=== PATIENT | male | born 1960 | race Caucasian/White ===

== ENCOUNTER 2016-08-16 07:35 | Inpatient (IN) | payer BC ==
[~2016-08-16] VITALS: Ht 182.9 cm; Wt 97.1 kg
[2016-08-16 09:29] VITALS: BP_SYST 114
[2016-08-16 09:31] VITALS: BP 114/52; RESP 18
[2016-08-16] MEDS ORDERED: HYDROCODONE/APAP (5/325) TAB PO PRN (10:30)
[2016-08-16] MEDS ORDERED: morphine 2 MG INJ IV PRN (10:30)
[2016-08-16] MEDS ORDERED: BISACODYL 10 MG SUPP PR PRN (10:30)
[2016-08-16] MEDS ORDERED: ACETAMINOPHEN 650 MG SUPP PR PRN (10:30)
[2016-08-16] MEDS ORDERED: DOCUSATE SODIUM 100 MG CAP PO PRN (10:30)
[2016-08-16] MEDS ORDERED: NACL 0.9% 3 ML SYG IV SCH (10:30)
[2016-08-16] MEDS ORDERED: ACETAMINOPHEN 325 MG TAB PO PRN (10:30)
[2016-08-16] MEDS ORDERED: MAGNESIUM HYDROXIDE 30ML CUP PO PRN (10:30)
[2016-08-16] MEDS ORDERED: ONDANSETRON 4 MG INJ IV PRN (10:30)
[2016-08-16] MEDS ORDERED: CLON-379 PO (10:40)
[2016-08-16] MEDS ORDERED: SPIR100T31 PO (10:40)
[2016-08-16] MEDS ORDERED: CYCL-319 PO (10:40)
[2016-08-16] MEDS ORDERED: HYDR4TAB PO (10:40)
[2016-08-16] MEDS ORDERED: GABA-528 PO (10:40)
[2016-08-16] MEDS ORDERED: PRA20 PO (10:40)
[2016-08-16] MEDS ORDERED: COU5 PO (10:40)
[2016-08-16] MEDS ORDERED: ULT50 PO (10:40)
[2016-08-16] MEDS ORDERED: FINA5TAB4 PO (10:40)
[2016-08-16] MEDS ORDERED: MAG355OR15 PO (10:40)
[2016-08-16] MEDS ORDERED: ARIP5TAB7 PO (10:40)
[2016-08-16] MEDS ORDERED: CEPH500C PO (10:40)
[2016-08-16] MEDS ORDERED: LISI10TA2 PO (10:40)
[2016-08-16] MEDS ORDERED: TAMS0.4C2 PO (10:40)
--- NOTE | 2016-08-16 11:15 | HP ---
DATE OF ADMISSION: 08/16/2016 CHIEF COMPLAINT: Altered level of consciousness secondary to heroin and [place] abuse as well as pneu monia. HISTORY OF PRESENT ILLNESS: This is a 56-year-old male with reported past medical history of BPH, C HF with systolic dysfunction reported "blood clot in the heart", diabetes, MRSA, hypertension, seizu re, neuropathy, who came to [facility] from outside facility ([facility]) secondary to reports of altered level of consciousness as well as pneumonia. Accord ing to report, the patient had overdosed on heroin as well as [place] 1 day prior to admission. He wa s found to be altered and as such was brought to [facility] for further evaluation. On exa m, he was noted with chest radiograph showing clinical picture of pneumonia. He was noted with no l eukocytosis and no respiratory distress. He was brought to [facility] due to insur ance issue. On further interview with the patient, he did report that he did take heroin as well as [place] in excess and that he was found altered. He did report also of having history of methampheta mine abuse. He denied any suicidal ideation or any kind of suicide attempt and said that he was jus t doing it for recreational purposes. The patient at this time denies any chest pain or shortness o f breath. No nausea, vomiting or any abdominal pain. He does appear more alert, although he is sli ghtly a poor historian. We will evaluate him for the aforementioned issues. MEDICAL AND SURGICAL HISTORY: 1. Hypertension. 2. Congestive heart failure with systolic dysfunction. 3. Diabetes. 4. Methicillin-resistant Staphylococcus aureus. 5. Hypertension. 6. Seizures. 7. Diabetic neuropathy. 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 He denies any a lcohol consumption. He does report daily cigarette smoking. FAMILY HISTORY: Noncontributory. REVIEW OF SYSTEMS: A 12-point review of systems obtained and entirely negative except that mentione d in history of present illness. ALLERGIES: NO KNOWN ALLERGIES. HOME MEDICATIONS: 1. Amitriptyline 100 mg p.o. at bedtime. 2. Abilify 5 mg p.o. every day. 3. Carisoprodol 350 mg p.o. every day. 4. Carvedilol 6.25 mg p.o. b.i.d. 5. Citalopram 20 mg p.o. every day. 6. Finasteride 5 mg p.o. daily. 7. Lasix 20 mg p.o. every day. 8. Neurontin 600 mg p.o. t.i.d. 9. Hydromorphone 4 mg p.o. q.6h. 10. Lidocaine patch 5% topically daily. 11. Lisinopril 10 mg p.o. daily. 12. Metformin 5 mg p.o. b.i.d. 13. Multivitamin p.o. every day. 14. Pravastatin 20 mg p.o. daily. 15. Tamsulosin 0.4 mg p.o. daily. PHYSICAL EXAMINATION: VITAL SIGNS: Temperature is 98.7, pulse 57, respiratory rate is 18, blood pressure is 114/52. Puls e ox is 97% on room air. GENERAL: This is a 56-year-old male, disheveled in appearance with no apparent distress noted at th is time. EYES: Pupils equal, round, reactive to light. Anicteric sclerae. NECK: Supple, nontender, no JVD. CARDIOVASCULAR: S1, S2 auscultated, regular rate. PULMONARY: Clear to auscultation bilaterally. No wheezing or rhonchi. ABDOMEN: Minimally protuberant, soft, nontender. EXTREMITIES: There is noted edema of bilateral lower extremities, +2 as well as minimal upper extre mities +1. SKIN: Warm, dry and intact. NEUROLOGIC: Alert to person, place and time. LABORATORY DATA: (obtained from [facility]) WBC is 5.8, hemoglobin is 9.9, hematocri t is 30.7, platelets are 268. Sodium 136, potassium 4.1. BUN is 28 and creatinine is 1.47. IMAGING: Chest radiograph obtained from [facility]. Per review did show new patchy airspa ce disease in the right mid lung as well as new airspace disease in the left lower lobe, suspect rep resentative of pneumonia. IMPRESSION AND PLAN: 1. Heroin and [place] abuse, resulting in altered level of consciousness. The patient more alert at this time. We will get child welfare social worker to follow. Patient educated about cessation of illicit drugs. We will monitor neuro status. 2. Pneumonia. Patient with chest radiograph with clinical picture of pneumonia. Will start on willie thromycin as well as Rocephin. We will followup on chest radiograph. Afebrile at present. We will provide with O2 as needed. No active bronchospasm noted at this time. 3. Homeless status. Patient was reported to live in a prison home. Will get child welfare social worker to [facility]. 4. History of essential hypertension. Will continue antihypertensives and adjust as needed. 5. History of congestive heart failure with systolic dysfunction. We will follow up on echocardiog francy. Continue to optimize with beta markel and diuretic. 6. History of benign prostatic hypertrophy. We will resume patient's Flomax and finasteride. 7. History of dyslipidemia. We will follow up on fasting lipid panel. Continue on statin medicati on. 8. History of diabetes. We will check A1c. We will resume mild insulin sliding scale of insulin f or now. 9. Deep venous thrombosis prophylaxis: SCDs. 10. Gastroesophageal reflux disease prophylaxis: H2 markel. 11. History of depression. We will continue on his antidepressants. 12. History of chronic pain. We will get pain management physician to follow. ADMISSION PROCESS TIME: 40 minutes. Discussed plan of care with Dr. Amin. Dictated By: JAMES KWON FITNESS AND WELLNESS DIRECTOR for STEVE AMIN MD RR/EBONY Conf#: [id number] DID#: [id number]
[2016-08-16 12:03] LABS: BASOPHILS % 0.4 % (0.0-2.0); EOSINOPHILS # 0.1 10^3/ul (0.0-0.5); EOSINOPHILS % 0.7 % (0.0-7.0); HEMATOCRIT 30.2 % (42.0-52.0); LYMPHOCYTES # 0.8 10^3/ul (0.8-2.9); LYMPHOCYTES % 7.3 % (15.0-51.0); MEAN CORPUSCULAR HEMOGLOBIN 28.5 pg (29.0-33.0); MEAN CORPUSCULAR HGB CONC 33.1 g/dl (32.0-37.0); MEAN CORPUSCULAR VOLUME 86.1 fl (82.0-101.0); MEAN PLATELET VOLUME 7.6 fl (7.4-10.4); MONOCYTE # 0.5 10^3/ul (0.3-0.9); MONOCYTES % 4.1 % (0.0-11.0); NEUTROPHIL # 9.9 10^3/ul (1.6-7.5); NEUTROPHILS % 87.5 % (39.0-77.0); PLATELET COUNT 288 10^3/UL (140-440); RED BLOOD COUNT 3.51 10^6/ul (4.70-6.10); RED CELL DISTRIBUTION WIDTH 17.7 % (11.5-14.5); UNCORRECTED WBC 11.4 10^3/ul (4.8-10.8); WHITE BLOOD COUNT 11.4 10^3/ul (4.8-10.8)
[2016-08-16 12:06] LABS: CONDITION 1; LH ANALYZER COMMENTS 1
[2016-08-16] MEDS: INSULIN ASPART [NOVOLOG] 3 ML PEN SC SCH ×3 (12:15→21:00)
[2016-08-16 12:21] LABS: POTASSIUM 5.1 mmol/L (3.5-5.1)
[2016-08-16 12:23] LABS: CREATININE 1.08 mg/dl (0.61-1.24)
[2016-08-16 12:24] LABS: CALCIUM 9.2 mg/dl (8.4-10.2)
[2016-08-16] MEDS: CEFTRIAXONE 1 GM/50 ML (PMX) 50 ML IVPB SCH (12:52)
[2016-08-16 13:09] LABS: IRON 34 ug/dl (35-150)
[2016-08-16 13:18] LABS: TOTAL IRON BINDING CAPACITY 369 ug/dl (241-421)
[2016-08-16] MEDS: AZITHROMYCIN 500MG/NS (PMX) 250 ML IVPB SCH (13:52)
[2016-08-16] MEDS: HYDROCODONE/APAP (5/325) TAB PO PRN ×2 (16:17→22:12)
--- NOTE | 2016-08-16 16:54 | RADRPT ---
Echocardiogram Report Patient Name: MALKA YATES Gender: Male Date: 1960 Study Date: 16-Aug-2016 Morning Show Host: Murali Kate [facility] Location: [id number] Ref. Physician: JAMES KWON Quality: Good Procedures: Transthoracic echocardiogram with complete 2D, M-Mode, and doppler examination. Indications: Congestive Heart Failure. Dyspnea. 2D/M Mode Doppler Measurement Value Normal Ranges Measurement Value Normal Ranges LVIDd 2D 5.6 3.5 - 5.6 cm AV Peak Alan 2.0 m/sec LVIDs 2D 4.1 2.1 - 4.1 cm AV Peak PG 15.8 mmHg LVPWd 2D 1.1 0.6 - 1.1 cm LVOT Peak Alan 1.0 m/sec IVSd 2D 0.8 0.6 - 1.1 cm LVOT Peak PG 3.8 mmHg AoR Diam 2D 2.4 2.0 - 3.7 cm MV E Peak Alan 0.8 m/sec EDV 2D 152.8 cm3 MV A Peak Alan 0.9 m/sec ESV 2D 66.8 cm3 MV E/A 0.9 LA Dimen 2D 2.9 2.3 - 4.0 cm MV Decel Time 160 msec MV Decel [place] 5 MV E/A 0.9 Findings Left Ventricle: Normal left ventricular systolic function. Normal left ventricular cavity size. Normal left ventricular wall thickness. Ejection fraction is visually estimated at 55 %. Right Ventricle: Normal right ventricular size. Normal right ventricular systolic function. Left Atrium: The left atrium is normal in size. Right Atrium: The right atrium is normal in size. Mitral Valve: Mild mitral annular calcification. Aortic Valve: No significant aortic stenosis or insufficiency. Aortic sclerosis without stenosis. Tricuspid Valve: Unable to obtain RVSP due to minimal presence of tricuspid regurgitation. Pericardium: Normal pericardium with no significant pericardial effusion. Aorta: Normal aortic root. IVC: Normal size and normal respiratory collapse consistent with normal right atrial pressure. Conclusions Normal left ventricular systolic function. Normal left ventricular cavity size. Normal left ventricular wall thickness. Ejection fraction is visually estimated at 55 %. No significant valvular stenosis or regurgitation seen. PAP could not be estimated. RA pressure is 3 mmHg. Electronically Signed By: Piotr Bravo 16-Aug-2016 16:54:01 -0800 Patient Name: MALKA YATES Study Date: 16-Aug-2016 [id number]
[2016-08-16 19:35] VITALS: BP 115/57; RESP 20
[2016-08-16] MEDS ORDERED: AL HYDROX/MG HYDROX/SIMETH 30 ML CUP PO PRN (21:00)
[2016-08-16] MEDS: TAMSULOSIN (SR) 0.4 MG CAP PO SCH (21:57)
[2016-08-16] MEDS: FAMOTIDINE 20 MG TAB PO SCH (21:57)
[2016-08-16] MEDS: GABAPENTIN 400 MG CAP PO SCH (21:57)
[2016-08-16] MEDS: traMADol 50 MG TAB PO SCH (21:58)
[2016-08-16] MEDS: SOD CHLORIDE 0.9% 1,000 ML IV SCH (22:05)
[2016-08-17] MEDS: ACCUCHECK XX SCH (02:00)
[2016-08-17] MEDS: INSULIN ASPART [NOVOLOG] 3 ML PEN SC SCH ×4 (08:10→20:26)
[2016-08-17] MEDS: ARIPIPRAZOLE 5 MG TAB PO SCH (08:20)
[2016-08-17] MEDS: FAMOTIDINE 20 MG TAB PO SCH ×2 (08:20→20:29)
[2016-08-17] MEDS: SPIRONOLACTONE 50 MG TAB PO SCH (08:20)
[2016-08-17] MEDS: LISINOPRIL 10 MG TAB PO SCH (08:20)
[2016-08-17] MEDS: FINASTERIDE 5 MG TAB PO SCH (08:20)
[2016-08-17] MEDS: GABAPENTIN 400 MG CAP PO SCH ×3 (08:21→20:27)
[2016-08-17] MEDS: traMADol 50 MG TAB PO SCH ×3 (08:21→21:31)
[2016-08-17] MEDS: HYDROmorphONE 4 MG TAB PO PRN ×3 (08:27→20:12)
--- NOTE | 2016-08-17 10:14 | RADRPT ---
PROCEDURE: XR Chest. CLINICAL INDICATION: Dyspnea. Rule out pneumonia. TECHNIQUE: Single frontal chest x-ray. COMPARISON: None. FINDINGS: The lungs are clear. No focal opacification is seen. The cardiomediastinal silhouette is unremarka ble. The osseous structures are unremarkable. IMPRESSION: 1. There is no acute cardiopulmonary process. RPTAT: HMJB .Fernando Posada MD, MD Date Time Electronically viewed and signed by .Fernando Posada MD, on 08/17/2016 10:13 .B/
[2016-08-17 10:15] LABS: ALBUMIN 3.2 g/dl (3.3-4.9)
[2016-08-17 10:16] LABS: POTASSIUM 4.4 mmol/L (3.5-5.1)
[2016-08-17 10:17] LABS: INR 1.1; PARTIAL THROMBOPLASTIN TIME 26.1 Sec (25.0-35.0); PROTIME 14.2 Sec (12.2-14.2); PT RATIO 1.1
[2016-08-17 10:18] LABS: BILIRUBIN,INDIRECT 0.2 mg/dl (0-1.1); BILIRUBIN,TOTAL 0.2 mg/dl (0.2-1.3); CALCIUM 8.6 mg/dl (8.4-10.2); CREATININE 0.91 mg/dl (0.61-1.24); PHOSPHORUS 2.8 mg/dl (2.5-4.9); TOTAL PROTEIN 6.4 g/dl (6.1-8.1)
[2016-08-17 10:19] LABS: CHOL/HDL RATIO 2.8 RATIO; MAGNESIUM 1.6 mg/dl (1.7-2.5)
[2016-08-17] MEDS: FERROUS SULFATE (EC) 325 MG TAB PO SCH ×3 (12:22→20:27)
[2016-08-17] MEDS: CEFTRIAXONE 1 GM/50 ML (PMX) 50 ML IVPB SCH (12:22)
[2016-08-17] MEDS: FUROSEMIDE 20 MG INJ IV SCH (12:23)
[2016-08-17] MEDS: SOD CHLORIDE 0.9% 1,000 ML IV SCH (12:23)
[2016-08-17] MEDS: AZITHROMYCIN 500MG/NS (PMX) 250 ML IVPB SCH (13:39)
--- NOTE | 2016-08-17 15:07 | PN ---
Date/Time of Note Date/Time of Note DATE: 08/17/16 TIME: 14:54 Assessment/Plan VTE Prophylaxis VTE Prophylaxis Intervention: other (Coumadin) Lines/Catheters IV Catheter Type (from [facility]): Saline Lock Urinary Cath still in place: No Assessment/Plan Chief Complaint/Hosp Course Assessment and plan 1. Heroin and [place] abuse, resulting in altered level of consciousness. The patient more alert at this time. We will get licensed master social worker to follow. Patient educated about cessation of illicit drugs. We will monitor neuro status. 2. Pneumonia. Patient with chest radiograph with clinical picture of pneumonia. Continue on antibiotic. Of note recent chest x-ray did show no acute cardiopulmonary disease.. We will followup on chest radiograph. Afebrile at present. We will provide with O2 as needed. 3. Homeless status. utility worker production following. Patient does report homelessness now and is not unsure if he still has residence at his long term home.. 4. History of essential hypertension. Will continue antihypertensives and adjust as needed. 5. History of congestive heart failure with systolic dysfunction. Echocardiogram did show ejection fraction of 55%. Continue to optimize with beta markel and diuretic. 6. History of benign prostatic hypertrophy. Continue patient's Flomax and finasteride. 7. History of dyslipidemia. Continue on statin medication. 8. History of diabetes. Continue on insulin regimen. 9. Reported "clot in heart". Patient did report that he had some type of clot in his heart and has been placed on Coumadin. We'll obtain full medical records from [facility]. We'll continue patient's Coumadin . Deep venous thrombosis prophylaxis: SCDs. . Gastroesophageal reflux disease prophylaxis: H2 markel. 11. History of depression. We will continue on his antidepressants. 12. History of chronic pain. Continue with analgesics Disposition and plan: Patient clinically improving. Patient reported to be homeless. We'll follow-up with licensed master social worker concerning disposition upon discharge. Discharge planning Discussed plan of care with Dr. Amin Problems: Subjective 24 Hr Interval Summary Free Text/Dictation No apparent distress noted at this time. Appears comfortable Exam/Review of Systems Vital Signs Vitals Vital Signs Date Time Temp Pulse Resp B/P Pulse Ox O2 Delivery O2 Flow Rate FiO2 08/16/16 19:35 98.9 70 20 115/57 97 Intake and Output 08/16/16 08/16/16 08/17/16 14:59 22:59 06:59 Intake Total 1840 ml 730 ml Output Total 200 ml 300 ml Balance 1640 ml 430 ml Exam General: No acute signs or symptoms of distress Eyes: pupils equal round, Anicteric sclera Neck: Supple nontender, no JVD Cardiac: S1, S2 auscultated, regular rhythm and rate Pulmonary: No coarse rhonchi or breathing auscultated GI: Abdomen soft nontender nondistended, bowel sounds active Extremities: Edema bilateral upper and lower extremity is +1 Skin: Clean dry and intact Neurologic: Alert to person place and time and situation Results Result Diagram: 08/16/16 1128 08/17/16 0905 Results 24 hrs Laboratory Tests Test 08/16/16 17:13 08/16/16 21:56 08/17/16 08:09 08/17/16 09:05 Bedside Glucose 114 142 98 Activated Partial Thromboplast Time 26.1 Alanine Aminotransferase (ALT/SGPT) 31 Albumin 3.2 L Albumin/Globulin Ratio 1.00 Alkaline Phosphatase 58 Anion Gap 11 Aspartate Amino Transf (AST/SGOT) 37 Blood Urea Nitrogen 17 # Calcium Level 8.6 Carbon Dioxide Level 24 Chloride Level 107 Cholesterol Level 125 Cholesterol/HDL Ratio 2.8 Creatinine 0.91 Direct Bilirubin 0.00 Free Thyroxine Index Pending Globulin 3.20 Glucose Level 147 # HDL Cholesterol 44 INR International Normalized Ratio 1.10 Indirect Bilirubin 0.2 LDL Cholesterol, Calculated 69 Magnesium Level 1.6 L Phosphorus Level 2.8 Potassium Level 4.4 Prothrombin Time 14.2 Prothrombin Time Ratio 1.1 Sodium Level 138 Thyroid Stimulating Hormone (TSH) Pending Thyroxine (T4) Pending Total Bilirubin 0.2 Total Protein 6.4 Triglycerides Level 62 Triiodothyronine (T3) Uptake Pending Test 08/17/16 11:57 Bedside Glucose 120 Medications Medications Current Medications Ondansetron HCl (Zofran Inj) 4 mg Q6H PRN IV NAUSEA AND/OR VOMITING; Start 08/16 at 10:30 Acetaminophen (Tylenol Tab) 650 mg Q6H PRN PO PAIN LEVEL 1-3 OR FEVER; Start at 10:30 Acetaminophen (Tylenol Supp) 650 mg Q6H PRN CA PAIN LEVEL 1-3 OR FEVER; Start 08/16/16 at 10:30 Acetaminophen/ Hydrocodone Bitart ([place] (5/325)) 1 tab Q6H PRN PO MODERATE PAIN LEVEL 4-6; Start 08/16/16 at 10:30 Acetaminophen/ Hydrocodone Bitart ([place] (5/325)) 2 tab Q6H PRN PO SEVERE PAIN LEVEL 7-10 Last administered on 08/16/16 22:12; Admin Dose 2 TAB; Start 08/16/16 at 10:30 Morphine Sulfate (morphine) 2 mg Q4H PRN IV SEVERE PAIN LEVEL 7-10 Last administered on 08/16/16 20:28; Admin Dose 2 MG; Start 08/16/16 at 10:30 Docusate Sodium (Colace) 100 mg Q12H PRN PO CONSTIPATION; Start 08/16/16 at 10: 30 Magnesium Hydroxide (Milk Of Mag) 30 ml DAILY PRN PO CONSTIPATION; Start at 10:30 Bisacodyl (Dulcolax Supp) 10 mg DAILY PRN CA CONSTIPATION; Start 08/16/16 at 10: 30 Famotidine (Pepcid) 20 mg Q12 PO Last administered on 08/17/16 08:20; Admin Dose 20 MG; Start 08/16/16 at 21:00 Diagnostic Test (Pha) 1 ea 1 ea 02 XX ; Start 08/17/16 at 02:00 Azithromycin 250 ml @ 250 mls/hr Q24H IVPB Last administered on 08/17/16 13:39 ; Admin Dose 250 MLS/HR; Start 08/16/16 at 13:00 Ceftriaxone Sodium (Rocephin) 50 ml @ 100 mls/hr Q24H IVPB Last administered on 08/17/16 12:22; Admin Dose 100 MLS/HR; Start 08/16/16 at 12:00 Aripiprazole (Abilify) 5 mg DAILY PO Last administered on 08/17/16 08:20; Admin Dose 5 MG; Start 08/17/16 at 09:00 Clonidine (Catapres) 0.1 mg BID PO Last administered on 08/16/16 22:02; Admin Dose 0.1 MG; Start 08/16/16 at 21:00 Finasteride (Proscar) 5 mg DAILY PO Last administered on 08/17/16 08:20; Admin Dose 5 MG; Start 08/17/16 at 09:00 Gabapentin (Neurontin) 800 mg TID PO Last administered on 08/17/16 13:38; Admin Dose 800 MG; Start 08/16/16 at 21:00 Hydromorphone HCl (Dilaudid) 4 mg Q4H PRN PO PAIN Last administered on 12:40; Admin Dose 4 MG; Start 08/16/16 at 21:00 Lisinopril (Zestril) 10 mg DAILY PO Last administered on 08/17/16 08:20; Admin Dose 10 MG; Start 08/17/16 at 09:00 Al Hydrox/Mg Hydrox/Simethicone (Mag-Al Plus) 30 ml Q8H PRN PO GASTROINTESTINAL UPSET; Start 08/16/16 at 21:00 Spironolactone (Aldactone) 50 mg DAILY PO Last administered on 08/17/16 08:20; Admin Dose 50 MG; Start 08/17/16 at 09:00 Tamsulosin HCl (Flomax) 0.4 mg HS PO Last administered on 08/16/16 21:57; Admin Dose 0.4 MG; Start 08/16/16 at 21:00 Tramadol HCl (Ultram) 50 mg BID PO Last administered on 08/16/16 21:58; Admin Dose 50 MG; Start 08/16/16 at 21:00 Warfarin Sodium 5 mg 5 mg DAILY@17 PO ; Start 08/17/16 at 17:00 Sodium Chloride (NS) 1,000 ml @ 70 mls/hr [id number] IV Last administered on 12:23; Admin Dose 70 MLS/HR; Start 08/16/16 at 21:00 Ferrous Sulfate (Ferrous Sulfate (Ec)) 325 mg TID PO Last administered on 13:38; Admin Dose 325 MG; Start 08/17/16 at 09:30 Furosemide (Lasix) 20 mg DAILY IV Last administered on 08/17/16 12:23; Admin Dose 20 MG; Start 08/17/16 at 10:00 JAMES KWON Aug 17, 2016 15:04
[2016-08-17] MEDS ORDERED: WARFARIN 5 MG TAB PO SCH (17:00)
[2016-08-17 17:55] LABS: T3 UPTAKE 46.2 % (23.5-40.5); THYROID STIMULATING HORMONE 0.683 MIU/L (0.465-4.680)
[2016-08-17 19:54] VITALS: BP 137/67; RESP 20
[2016-08-17] MEDS: TAMSULOSIN (SR) 0.4 MG CAP PO SCH (20:27)
[2016-08-18] MEDS: HYDROmorphONE 4 MG TAB PO PRN ×2 (00:19→05:46)
[2016-08-18] MEDS ORDERED: ZOLPIDEM 5 MG TAB PO PRN (00:30)
[2016-08-18] MEDS: SOD CHLORIDE 0.9% 1,000 ML IV SCH ×2 (01:19→05:41)
[2016-08-18] MEDS: ACCUCHECK XX SCH (01:19)
[2016-08-18 06:33] LABS: EOSINOPHILS # 0.1 10^3/ul (0.0-0.5); EOSINOPHILS % 2.5 % (0.0-7.0); HEMATOCRIT 29.7 % (42.0-52.0); HEMOGLOBIN 9.9 g/dl (14.0-18.0); LYMPHOCYTES # 1.4 10^3/ul (0.8-2.9); LYMPHOCYTES % 24.3 % (15.0-51.0); MEAN CORPUSCULAR HEMOGLOBIN 28.5 pg (29.0-33.0); MEAN CORPUSCULAR HGB CONC 33.5 g/dl (32.0-37.0); MEAN CORPUSCULAR VOLUME 85.2 fl (82.0-101.0); MONOCYTE # 0.5 10^3/ul (0.3-0.9); MONOCYTES % 7.9 % (0.0-11.0); NEUTROPHIL # 3.8 10^3/ul (1.6-7.5); NEUTROPHILS % 65.3 % (39.0-77.0); PLATELET COUNT 254 10^3/UL (140-440); RED BLOOD COUNT 3.48 10^6/ul (4.70-6.10); RED CELL DISTRIBUTION WIDTH 17.9 % (11.5-14.5); UNCORRECTED WBC 5.9 10^3/ul (4.8-10.8); WHITE BLOOD COUNT 5.9 10^3/ul (4.8-10.8)
[2016-08-18 06:34] LABS: POTASSIUM 4.2 mmol/L (3.5-5.1)
[2016-08-18 06:36] LABS: CREATININE 0.98 mg/dl (0.61-1.24)
[2016-08-18 06:37] LABS: CALCIUM 8.9 mg/dl (8.4-10.2); MAGNESIUM 1.4 mg/dl (1.7-2.5)
[2016-08-18 06:45] LABS: CONDITION 1; LH ANALYZER COMMENTS 1
[2016-08-18 07:22] VITALS: BP 134/78; RESP 20
[2016-08-18] MEDS: INSULIN ASPART [NOVOLOG] 3 ML PEN SC SCH ×2 (07:49→12:15)
[2016-08-18] MEDS: ARIPIPRAZOLE 5 MG TAB PO SCH (08:24)
[2016-08-18] MEDS: GABAPENTIN 400 MG CAP PO SCH ×2 (08:25→13:38)
[2016-08-18] MEDS: FINASTERIDE 5 MG TAB PO SCH (08:25)
[2016-08-18] MEDS: FERROUS SULFATE (EC) 325 MG TAB PO SCH ×2 (08:25→13:38)
[2016-08-18] MEDS: LISINOPRIL 10 MG TAB PO SCH (08:25)
[2016-08-18] MEDS: FAMOTIDINE 20 MG TAB PO SCH (08:25)
[2016-08-18] MEDS: SPIRONOLACTONE 50 MG TAB PO SCH (08:25)
[2016-08-18] MEDS: FUROSEMIDE 20 MG INJ IV SCH (08:26)
[2016-08-18] MEDS: traMADol 50 MG TAB PO SCH (08:27)
[2016-08-18] MEDS ORDERED: FER325 PO (11:00)
[2016-08-18] MEDS ORDERED: FURO20TA PO (11:00)
[2016-08-18] MEDS ORDERED: HYDROmorphONE 4 MG TAB PO PRN (12:00)
[2016-08-18] MEDS ORDERED: MAGNESIUM SULFATE 3 GM in SOD CHLORIDE 0.9% 100 ML IVPB ONE (12:00)
[2016-08-18] MEDS: CEFTRIAXONE 1 GM/50 ML (PMX) 50 ML IVPB SCH (12:13)
[2016-08-18] MEDS: AZITHROMYCIN 500MG/NS (PMX) 250 ML IVPB SCH (13:38)
--- NOTE | 2016-08-18 14:57 | PDOCDIS ---
Discharge Instructions DIAGNOSIS Discharge Diagnosis: 1. pneumonia 2. Heroin and [place] abuse, resulting in altered level of cons CONDITION Patient Condition: Stable HOME CARE INSTRUCTIONS: Special Diet: CARB CONTROLLED FOLLOW UP/APPOINTMENTS Appointments 1. Follow up with your primary care provider in one week OTHER ORDERS: Other Orders: 1. Stop illicit drug use 2. Call 911 if you have worse chest pain or shortness of breath JAMES KWON Aug 18, 2016 14:56
[2016-08-18] MEDS ORDERED: LEVO500T72 PO (15:06)
--- NOTE | 2016-08-18 15:15 | DS ---
Date/Time of Note Date/Time of Note DATE: 08/18/16 TIME: 15:10 Discharge Summary Admission/Discharge Info Admit Date/Time Aug 16, 2016 at 07:35 Discharge Date/Time Final Diagnosis 1. Heroin and [place] abuse resulting in altered level consciousness 2. Pneumonia 3. Homeless status 4. Essential hypertension 5. CHF with systolic dysfunction 6. History of BPH 7. Dyslipidemia 8. Reported history of diabetes Patient Condition: Stable Hospital Course This is a 56-year-old male with history of BPH, CHF with systolic dysfunction, reported "blood clot in heart", diabetes, MRSA, hypertension, seizure, neuropathy, who came to [facility] from outside facility ( [facility]) secondary to reports of altered level consciousness as well as pneumonia. According to report, the patient had overdosed on [place] one day prior to admission. He was also found to be altered and as such was brought to [facility] for further evaluation. On exam he did have chest radiograph with clinical picture of pneumonia. He was also noted with some respiratory distress. He was brought to [facility] due to insurance issue. Patient was more alert when he came to [facility] and after interviewed patient did report that he also took care when and [place] together and excess. He also did report history of methamphetamine abuse. He denied any suicidal ideation. Patient was optimized with antibiotic therapy. He was counseled about illicit drug use cessation. He did improve during his course of stay. He was otherwise optimized medically. He was continued on antibiotic for his pneumonia. We did get pediatric social worker for his homeless status he did provide him with options for penitentiary's. He was continue on antihypertensives for his hypertension. He also did optimize him with diuretics as well as beta markel for his history of CHF. He was continued on Flomax and finasteride for his BPH. He was also maintained on statin for his dyslipidemia. As for the report of his "clot in heart". He was continued on Coumadin. Of note his INR was subtherapeutic for this. We did inform the patient to follow-up with his primary care provider for further management and dosing of his Coumadin. During his course of stay did improve. The plan of care was discussed with the patient and patient did verbalize his understanding. On the day of discharge patient was in stable condition Discussed plan of care with Dr.Amde Home Meds Active Scripts Levofloxacin* (Levaquin*) 500 Mg Tablet, 500 MG PO DAILY for 7 Days, TAB Prov:RAMAN KWONNELL 08/18/16 Furosemide* (Lasix*) 20 Mg Tablet, 20 MG PO DAILY for 30 Days, TAB Prov:RAMAN KWONNELL 08/18/16 Ferrous Sulfate* (Ferrous Sulfate*) 325 Mg Tabec, 325 MG PO TID for 30 Days, TAB Prov:JOSEPATRICIORAMANJAMES 08/18/16 Reported Medications Pravastatin Sodium (Pravastatin Sodium) 20 Mg Tablet, 20 MG PO HS, TAB 08/16/16 Aripiprazole* (Abilify*) 5 Mg Tab, 5 MG PO DAILY, #30 TAB 08/16/16 Mag Hydrox/Al Hydrox/Simeth (Antacid Liquid) 355 Ml Oral.susp, 30 ML PO Q8 Y for GASTROINTESTINAL UPSET, BOT 08/16/16 Gabapentin* (Gabapentin*) 800 Mg Tablet, 800 MG PO TID, #90 TAB 08/16/16 Cephalexin* (Cephalexin*) 500 Mg Capsule, 500 MG PO Q6, #28 CAP 08/16/16 Lisinopril* (Lisinopril*) 10 Mg Tablet, 10 MG PO DAILY, #30 TAB 08/16/16 Cyclobenzaprine Hcl* (Cyclobenzaprine Hcl*) 10 Mg Tablet, 10 MG PO Q8 Y for MUSCLE SPASMS, #60 TAB 08/16/16 Finasteride* (Finasteride*) 5 Mg Tablet, 5 MG PO DAILY, TAB 08/16/16 Warfarin Sod (Coumadin) 5 Mg Tab, 5 MG PO DAILY, TAB 08/16/16 Tamsulosin Hcl* (Tamsulosin Hcl*) 0.4 Mg Cap.er.24h, 0.4 MG PO HS, CAP 08/16/16 Hydromorphone Hcl* (Hydromorphone Hcl*) 4 Mg Tablet, 4 MG PO Q4 Y for PAIN, TAB 08/16/16 Tramadol HCl (Tramadol HCl) 50 Mg Tablet, 50 MG PO BID, #60 TAB 08/16/16 Spironolactone* (Spironolactone*) 100 Mg Tablet, 50 MG PO DAILY, TAB 08/16/16 Clonidine Hcl* (Clonidine Hcl*) 0.1 Mg Tab, 0.1 MG PO BID, TAB 08/16/16 Follow-up Plan CONDITION Patient Condition: Stable HOME CARE INSTRUCTIONS: Special Diet: CARB CONTROLLED FOLLOW UP/APPOINTMENTS Appointments 1. Follow up with your primary care provider in one week OTHER ORDERS: Other Orders: 1. Stop illicit drug use 2. Call 911 if you have worse chest pain or shortness of breath Pending Labs Laboratory Tests Test 08/17/16 17:12 08/17/16 20:25 08/18/16 06:00 08/18/16 07:49 Bedside Glucose 107mg/dL (70-220) 115mg/dL (70-220) 110mg/dL (70-220) Anion Gap 12 (8-16) Basophils # 0.010^3/ul (0.0-0.1) Basophils % 0.0% (0.0-2.0) Blood Morphology Comment Blood Urea Nitrogen 17mg/dl (7-20) Calcium Level 8.9mg/dl (8.4-10.2) Carbon Dioxide Level 24mmol/L (21-31) Chloride Level 105mmol/L (97-110) Creatinine 0.98mg/dl (0.61-1.24) Eosinophils # 0.110^3/ul (0.0-0.5) Eosinophils % 2.5% (0.0-7.0) Glucose Level 95mg/dl (70-220) Hematocrit 29.7% (42.0-52.0) Hemoglobin 9.9g/dl (14.0-18.0) Lymphocytes # 1.410^3/ul (0.8-2.9) Lymphocytes % 24.3% (15.0-51.0) Magnesium Level 1.4mg/dl (1.7-2.5) Mean Corpuscular Hemoglobin 28.5pg (29.0-33.0) Mean Corpuscular Hemoglobin Concent 33.5g/dl (32.0-37.0) Mean Corpuscular Volume 85.2fl (82.0-101.0) Mean Platelet Volume 7.0fl (7.4-10.4) Monocytes # 0.510^3/ul (0.3-0.9) Monocytes % 7.9% (0.0-11.0) Neutrophils # 3.810^3/ul (1.6-7.5) Neutrophils % 65.3% (39.0-77.0) Nucleated Red Blood Cells # 0.010^3/ul (0.0-0.0) Nucleated Red Blood Cells % 0.0/100WBC (0.0-0.0) Platelet Count 21366^3/UL (140-440) Potassium Level 4.2mmol/L (3.5-5.1) Red Blood Count 3.4810^6/ul (4.70-6.10) Red Cell Distribution Width 17.9% (11.5-14.5) Sodium Level 137mmol/L (135-144) White Blood Count 5.910^3/ul (4.8-10.8) Test 08/18/16 11:57 Bedside Glucose 124mg/dL (70-220) JAMES KWON Aug 18, 2016 15:15
[2016-08-18] MEDS ORDERED: WARFARIN 2 MG TAB PO SCH (17:00)
== END 2016-08-18 16:20 | disposition home or self-care (01) | DRG 896 ==
LOC: MS2 07:35
PROVIDERS: ADMIT Internal Medicine; ATTEND Internal Medicine
DX: F11.10 Opioid abuse, uncomplicated (principal); J18.9 Pneumonia, unspecified organism; I50.22 Chronic systolic (congestive) heart failure; E11.40 Type 2 diabetes mellitus with diabetic neuropathy, unspecified; F55.8 Abuse of other non-psychoactive substances; R40.4 Transient alteration of awareness; I10 Essential (primary) hypertension; N40.0 Benign prostatic hyperplasia without lower urinary tract symptoms; E78.5 Hyperlipidemia, unspecified; Z59.0 Homelessness; Z79.01 Long term (current) use of anticoagulants; G40.909 Epilepsy, unspecified, not intractable, without status epilepticus
CPT/HCPCS: 71010; 80048; 80053; 80061; 82962; 83036; 83540; 83735; 84100; 84436; 84443; 84479; 85025; 85610; 85730; 87040; 93306; 97162; J1940; J0456; J0696; J1170; J1815; J2270; J3475; J7030

== ENCOUNTER 2016-10-05 18:13 | Inpatient (IN) | payer BC ==
[~2016-10-05] VITALS: Ht 182.9 cm; Wt 100.0 kg
[~2016-10-05 18:13] MED LIST: ARIP5TAB7 PO; CLON-379 PO; COU5 PO; CYCL-319 PO; FER325 PO; FINA5TAB4 PO; FURO-110 PO; GABA-528 PO; HYDR4TAB PO; LEVO500T72 PO; LISI10TA2 PO; MAG355OR15 PO; PRA20 PO; SPIR100T31 PO; TAMS0.4C2 PO; TRAM50TA2 PO
[2016-10-05 21:45] VITALS: BP 128/71; RESP 20
[2016-10-05] MEDS ORDERED: METF-730 PO (21:46)
[2016-10-05] MEDS ORDERED: FURO40TA4 PO (21:46)
[2016-10-05 22:00] VITALS: Ht 182.9 cm; Wt 100.0 kg
[2016-10-05] MEDS ORDERED: VANCOMYCIN IV PER PHARMACY XX SCH (22:30)
[2016-10-05] MEDS ORDERED: CYCLOBENZAPRINE 10 MG TAB PO PRN (22:30)
[2016-10-05] MEDS ORDERED: AL HYDROX/MG HYDROX/SIMETH 30 ML CUP PO PRN (22:30)
[2016-10-05] MEDS ORDERED: ACETAMINOPHEN 325 MG TAB PO PRN (22:30)
[2016-10-05] MEDS ORDERED: GLUCOSE GEL 15 GRAM TUBE BUCCAL PRN (23:00)
[2016-10-05] MEDS ORDERED: GLUCOSE GEL 15 GRAM TUBE PO PRN ×2 (23:00)
[2016-10-05] MEDS ORDERED: AMITRIPTYLINE 50 MG TAB PO SCH (23:00)
[2016-10-05] MEDS ORDERED: GLUCAGON 1 MG INJ IM PRN (23:00)
[2016-10-05] MEDS ORDERED: DEXTROSE 50% 50 ML SYRINGE IV PRN ×2 (23:00)
[2016-10-05] MEDS: morphine 4 MG/ML VIAL IV PRN (23:02)
[2016-10-05] MEDS ORDERED: AMI100 PO (23:06)
[2016-10-05] MEDS: ACCUCHECK XX SCH (23:11)
[2016-10-05] MEDS ORDERED: CLON2TAB3 PO (23:15)
[2016-10-05] MEDS ORDERED: ZOLPIDEM 5 MG TAB PO ONE (23:30)
[2016-10-05] MEDS ORDERED: clonAZEPAM 0.5 MG TAB PO PRN (23:30)
[2016-10-06] MEDS ORDERED: VANCOMYCIN 2 GM in SOD CHLORIDE 0.9% 500 ML IVPB ONE ×2
[2016-10-06] MEDS: CEFEPIME 1GM/50 ML (PMX) 50 ML IVPB SCH ×3 (00:25→21:33)
[2016-10-06] MEDS: AMITRIPTYLINE 25 MG TAB PO SCH ×2 (00:25→21:23)
[2016-10-06] MEDS: INSULIN GLARGINE [LANtus] 3 ML PEN SC SCH ×2 (00:32→21:33)
[2016-10-06] MEDS: HEPARIN 5,000 UNIT/0.5 ML SYG SC SCH ×3 (00:32→21:28)
[2016-10-06] MEDS: HYDROCODONE/APAP (5/325) TAB PO PRN ×3 (01:53→16:16)
[2016-10-06] MEDS ORDERED: ACCUCHECK XX SCH (02:00)
[2016-10-06] MEDS: ACCUCHECK XX SCH (07:30)
[2016-10-06 07:56] VITALS: BP 128/62; RESP 18
[2016-10-06] MEDS: FERROUS SULFATE (EC) 325 MG TAB PO SCH ×3 (08:35→21:23)
[2016-10-06] MEDS: GABAPENTIN 300 MG CAP PO SCH ×3 (08:35→21:23)
[2016-10-06] MEDS: FUROSEMIDE 40 MG TAB PO SCH (08:36)
[2016-10-06] MEDS: FINASTERIDE 5 MG TAB PO SCH (08:36)
[2016-10-06] MEDS: SPIRONOLACTONE 50 MG TAB PO SCH (08:38)
[2016-10-06] MEDS: ARIPIPRAZOLE 5 MG TAB PO SCH (08:43)
[2016-10-06] MEDS ORDERED: CEFEPIME 1GM/50 ML (PMX) 50 ML IVPB SCH ×2 (09:00→23:00)
[2016-10-06 09:45] LABS: ADD SCAN DIFF NO
[2016-10-06 09:52] LABS: BASOPHILS % 0.4 % (0.0-2.0); EOSINOPHILS # 0.1 10^3/ul (0.0-0.5); EOSINOPHILS % 1.7 % (0.0-7.0); HEMATOCRIT 34.6 % (42.0-52.0); HEMOGLOBIN 11.4 g/dl (14.0-18.0); LYMPHOCYTES # 1.4 10^3/ul (0.8-2.9); LYMPHOCYTES % 18.4 % (15.0-51.0); MEAN CORPUSCULAR HEMOGLOBIN 29.1 pg (29.0-33.0); MEAN CORPUSCULAR HGB CONC 32.9 g/dl (32.0-37.0); MEAN CORPUSCULAR VOLUME 88.3 fl (82.0-101.0); MONOCYTE # 0.5 10^3/ul (0.3-0.9); MONOCYTES % 6.1 % (0.0-11.0); NEUTROPHIL # 5.4 10^3/ul (1.6-7.5); NEUTROPHILS % 72.6 % (39.0-77.0); PLATELET COUNT 271 10^3/UL (140-415); RED BLOOD COUNT 3.92 10^6/ul (4.70-6.10); RED CELL DISTRIBUTION WIDTH 17.7 % (11.5-14.5); WHITE BLOOD COUNT 7.5 10^3/ul (4.8-10.8)
[2016-10-06 09:58] LABS: INR 0.93; PARTIAL THROMBOPLASTIN TIME 21.3 Sec (25.0-35.0); PROTIME 12.5 Sec (12.2-14.2)
[2016-10-06 10:00] LABS: ALBUMIN 3.4 g/dl (3.3-4.9); POTASSIUM 4.8 mmol/L (3.5-5.1)
[2016-10-06 10:01] LABS: ALBUMIN/GLOBULIN RATIO 1.06; CREATININE 0.91 mg/dl (0.61-1.24); TOTAL PROTEIN 6.6 g/dl (6.1-8.1)
[2016-10-06 10:09] LABS: MEAN PLATELET VOLUME 8.7 fl (7.4-10.4)
[2016-10-06] MEDS: INSULIN ASPART [NOVOLOG] 3 ML PEN SC SCH ×3 (12:00→21:00)
[2016-10-06] MEDS: VANCOMYCIN 1.5 GM in SOD CHLORIDE 0.9% 250 ML IVPB SCH (12:14)
[2016-10-06] MEDS: morphine 4 MG/ML VIAL IV PRN ×3 (12:17→22:19)
--- NOTE | 2016-10-06 12:18 | HP ---
DATE OF ADMISSION: 10/05/2016 CHIEF COMPLAINT: "Pain and infection on my legs and I ran out of my medication." HISTORY OF PRESENT ILLNESS: This is a 56-year-old male with a history of hypertension, dyslipidemia , BPH, chronic pain syndrome, substance abuse and "blood clot in my heart" who was transferred from [facility] for bilateral lower extremity cellulitis. The patient was transferred here katharine use of insurance reasons. He initially went to [facility] saying that his medications were stolen a nd also complained of redness and swelling on his legs. He stated that he has been having this prob nic for a long time, but he said recently his doctor 2 months ago started him on clindamycin, and th en he stated it was actually 2 weeks ago that he was started on clindamycin. In any case, he stated that he has been noticing swelling on his left leg, which he said is chronic and small wounds and r edness on the right leg. He also complains of pain on both of his legs which he states is chronic. He states that he has an ALLERGY TO MORPHINE and states that he has been taking Dilaudid at [facility] and in fact he states he has a pain specialist that he follows up with regularly. He also report s shortness of breath which he attributed not taking his Dilaudid for his pain. Of note, the patien tierney was admitted here in August of this year after he was again transferred from [facility] for altered mentation. At that time, he reported taking excessive [place], methamphetamine and possib ly heroin. The patient also reported that he was diagnosed with "blood clot in my heart" 3 months a go at [facility] for which he has been taking his Coumadin. He stated he was just told by his [facility] doctor recently that he needs to have an ultrasound done again and until then he stated he w as told to stop taking his Coumadin. REVIEW OF SYSTEMS: A 12-point review of systems was performed and is negative except as mentioned i n the HPI. PAST MEDICAL HISTORY: As per HPI. SOCIAL HISTORY: Positive for substance abuse including methamphetamines and possible heroin. ALLERGIES: NO KNOWN DRUG ALLERGIES. HOME MEDICATIONS: 1. Cyclobenzaprine. 2. Ferrous sulfate. 3. Clonidine. 4. Lisinopril. 5. Pravastatin. 6. Metformin. 7. Finasteride. 8. Aldactone. 9. Abilify. 10. Clonazepam. 11. Gabapentin. 12. Dilaudid. 13. Lasix. 14. Tamsulosin. PHYSICAL EXAMINATION: VITAL SIGNS: Stable. GENERAL: The patient is in mild discomfort due to lower extremity pain. He is, however, answering questions without any issue. He is alert and oriented. HEENT: No obvious head deformity. Pupils are reactive to light. Extraocular muscles intact. CARDIOVASCULAR: Regular rate and rhythm with no extra sounds. LUNGS: Clear. ABDOMEN: Soft, nontender, nondistended. Positive bowel sounds. EXTREMITIES: The left lower extremity is more bigger than his right one at the calf. He also has w hat appears to be chronic venous stasis change. There is also some erythema with a small ulceration /dried wound on his first right calf. The area is also slightly warm to touch. LABORATORY DATA: Currently pending here. IMPRESSION: 1. Bilateral lower extremity cellulitis. 2. History of hypertension. 3. History of dyslipidemia. 4. History of diabetes. 5. History of benign prostatic hypertrophy. 6. History of substance abuse. 7. Chronic pain syndrome. 8. Questionable "blood clot in my heart." PLAN: He will be placed on antibiotics. We will attempt to send a wound culture if possible. We w ill send a blood culture. We will provide pain medication as needed. He will be continued with his home medications with adjustment as needed, but we will hold his metformin and place him on insulin while in house. Also, he will need to verify his home Dilaudid before we continue this home medica tion. He stated that there is a card that he has with him, which can call during the day to t alk with his pain specialist to verify whether or not he actually has been placed on Dilaudid. Further workup and management per clinical course. Dictated By: STEVE JACINTO/EBONY Conf#: [id number] DID#: [id number]
[2016-10-06] MEDS: clonAZEPAM 0.5 MG TAB PO SCH ×2 (13:54→21:23)
[2016-10-06 20:04] VITALS: BP 120/62; RESP 18
[2016-10-06] MEDS ORDERED: AMITRIPTYLINE 50 MG TAB PO SCH (21:00)
[2016-10-06] MEDS: ATORVASTATIN 10 MG TAB PO SCH (21:23)
[2016-10-06] MEDS: TAMSULOSIN (SR) 0.4 MG CAP PO SCH (21:23)
[2016-10-06] MEDS ORDERED: HEPARIN 5,000 UNIT/0.5 ML SYG SC SCH (23:00)
[2016-10-07] MEDS: VANCOMYCIN 1.5 GM in SOD CHLORIDE 0.9% 250 ML IVPB SCH ×2 (01:06→12:14)
[2016-10-07] MEDS: HYDROCODONE/APAP (5/325) TAB PO PRN (01:07)
[2016-10-07] MEDS: ACCUCHECK XX SCH (02:00)
[2016-10-07] MEDS ORDERED: CARI350T29 PO (03:53)
[2016-10-07 07:40] VITALS: BP 132/87; RESP 16
[2016-10-07] MEDS: INSULIN ASPART [NOVOLOG] 3 ML PEN SC SCH ×4 (07:51→21:00)
[2016-10-07] MEDS: CEFEPIME 1GM/50 ML (PMX) 50 ML IVPB SCH ×2 (08:34→21:17)
[2016-10-07] MEDS: ARIPIPRAZOLE 5 MG TAB PO SCH (08:34)
[2016-10-07] MEDS: SPIRONOLACTONE 50 MG TAB PO SCH (08:35)
[2016-10-07] MEDS: clonAZEPAM 0.5 MG TAB PO SCH ×2 (08:35→21:19)
[2016-10-07] MEDS: FERROUS SULFATE (EC) 325 MG TAB PO SCH ×3 (08:35→21:19)
[2016-10-07] MEDS: GABAPENTIN 300 MG CAP PO SCH ×3 (08:36→21:19)
[2016-10-07] MEDS: FINASTERIDE 5 MG TAB PO SCH (08:36)
[2016-10-07] MEDS: FUROSEMIDE 40 MG TAB PO SCH (08:36)
[2016-10-07] MEDS: HEPARIN 5,000 UNIT/0.5 ML SYG SC SCH ×2 (08:38→21:18)
[2016-10-07] MEDS ORDERED: HYDROmorphONE 4 MG TAB PO PRN (09:00)
--- NOTE | 2016-10-07 09:11 | PN ---
Date/Time of Note Date/Time of Note DATE: 10/07/16 TIME: 09:06 Assessment/Plan VTE Prophylaxis VTE Prophylaxis Intervention: heparin Lines/Catheters IV Catheter Type (from Nrsg): Saline Lock Assessment/Plan Problems: (1) Dysthymia (or depressive neurosis) Status: Chronic Comment: The patient states that this is relatively mild issue and the main reason he takes amitriptyline is actually for sleep. This is actually in an appropriate choice in this individual will be discontinued now. We will go ahead and use mirtazapine to help him be able to sleep and not have the anticholinergic effect (2) BPH (benign prostatic hypertrophy) with urinary retention Status: Chronic Comment: Continue the tamsulosin and finasteride. Discontinue all medications with powerful anticholinergic effects (3) Diabetes mellitus type 2 in nonobese Status: Chronic Comment: Adequate control (4) Hypertension Status: Chronic Comment: Adequately controlled Qualifiers: Hypertension type: essential hypertension Qualified Code: I10 - Essential hypertension (5) Hyperlipidemia Status: Chronic Comment: Noted Qualifiers: Hyperlipidemia type: pure hypercholesterolemia Qualified Code: E78.00 - Pure hypercholesterolemia (6) Chronic pain syndrome Status: Chronic Comment: He is managed by our colleague Dr. Evelin Pathak,. He reports that he is on the Dilaudid without any type of a long-acting opiate. I will not make any significant changes to his regimen will have a time limited amounts of medications. Ultimately this will be up to Dr. Pathak. However given the rather interesting variety of medications he is on I think that it would be peguero to completely reevaluate his medications especially the high-dose muscle relaxants high-dose benzodiazepines and high-dose narcotics that he is on once he is discharged to the care of Dr. Pathak and his primary care physician Dr. Dipak Ferguson (7) Bilateral lower leg cellulitis Status: Acute Comment: Improving nicely with antibiotics anticipate discharge in the morning Subjective 24 Hr Interval Summary Free Text/Dictation Middle-aged male sitting up in bed animatedly requesting narcotic Constitutional: no complaints (Denies fevers chills or sweats) Eyes: no complaints Respiratory: no complaints (Denies shortness of breath chest pain or wheezing) Cardiovascular: no complaints (Denies chest pain or palpitation) Gastrointestinal: no complaints (Denies nausea or vomiting) Genitourinary: other (Positive BPH cyst symptoms with an AUA score above 10; please note he is on a powerful anticholinergic medication) Musculoskeletal: back pain Skin: other (Reports from his perspective his legs are improving nicely) Exam/Review of Systems Vital Signs Vitals Vital Signs Date Time Temp Pulse Resp B/P Pulse Ox O2 Delivery O2 Flow Rate FiO2 10/07/16 07:40 98.1 80 16 132/87 95 Intake and Output 10/06/16 10/06/16 10/07/16 15:00 23:00 07:00 Intake Total 550 ml 1270 ml 750.000 ml Output Total 630 ml Balance 550 ml 1270 ml 120.000 ml Exam Constitutional: alert, oriented Neck: non-tender, supple Respiratory: clear to auscultation, normal air movement Cardiovascular: nl pulses, regular rate and rhythm Gastrointestinal: nl liver, spleen, non-tender, soft Extremities: other (Patchy areas of cellulitis both lower extremities which are improved versus the ink jerry on the skin that were place at the time of admission) Results Result Diagram: 10/06/16 0934 10/06/16 0934 Results 24 hrs Laboratory Tests Test 10/06/16 09:34 10/06/16 12:12 10/06/16 18:00 10/06/16 21:13 Activated Partial Thromboplast Time 21.3 L Alanine Aminotransferase (ALT/SGPT) 30 Albumin 3.4 Albumin/Globulin Ratio 1.06 Alkaline Phosphatase 70 Anion Gap 16 Aspartate Amino Transf (AST/SGOT) 22 Basophils # 0.0 Basophils % 0.4 Blood Urea Nitrogen 21 H Calcium Level 9.0 Carbon Dioxide Level 27 Chloride Level 103 Creatinine 0.91 Direct Bilirubin 0.00 Eosinophils # 0.1 Eosinophils % 1.7 Globulin 3.20 Glucose Level 107 Hematocrit 34.6 L Hemoglobin 11.4 L INR International Normalized Ratio 0.93 Indirect Bilirubin 0.0 Lymphocytes # 1.4 Lymphocytes % 18.4 Mean Corpuscular Hemoglobin 29.1 Mean Corpuscular Hemoglobin Concent 32.9 Mean Corpuscular Volume 88.3 Mean Platelet Volume 8.7 # Monocytes # 0.5 Monocytes % 6.1 Neutrophils # 5.4 Neutrophils % 72.6 Nucleated Red Blood Cells # 0.0 Nucleated Red Blood Cells % 0.0 Platelet Count 271 Potassium Level 4.8 Prothrombin Time 12.5 Prothrombin Time Ratio 1.0 Red Blood Count 3.92 L Red Cell Distribution Width 17.7 H Sodium Level 141 Total Bilirubin 0.0 L Total Protein 6.6 White Blood Count 7.5 # Bedside Glucose 137 167 105 Test 10/07/16 07:35 Bedside Glucose 118 Medications Medications Current Medications Aripiprazole (Abilify) 5 mg DAILY PO Last administered on 10/07/16 08:34; Admin Dose 5 MG; Start 10/06/16 at 09:00 Cyclobenzaprine HCl (Flexeril) 10 mg Q8 PRN PO MUSCLE SPASMS; Start 10/05/16 at 22:30 Ferrous Sulfate (Ferrous Sulfate (Ec)) 325 mg TID PO Last administered on 08:35; Admin Dose 325 MG; Start 10/06/16 at 09:00 Finasteride (Proscar) 5 mg DAILY PO Last administered on 10/07/16 08:36; Admin Dose 5 MG; Start 10/06/16 at 09:00 Furosemide (Lasix) 40 mg DAILY PO Last administered on 10/07/16 08:36; Admin Dose 40 MG; Start 10/06/16 at 09:00 Al Hydrox/Mg Hydrox/Simethicone (Mag-Al Plus) 30 ml Q8 PRN PO GASTROINTESTINAL UPSET; Start 10/05/16 at 22:30 Spironolactone (Aldactone) 50 mg DAILY PO Last administered on 10/07/16 08:35 ; Admin Dose 50 MG; Start 10/06/16 at 09:00 Tamsulosin HCl (Flomax) 0.4 mg HS PO Last administered on 10/06/16 21:23; Admin Dose 0.4 MG; Start 10/06/16 at 21:00 Atorvastatin Calcium (Lipitor) 10 mg DAILY@21 PO Last administered on 21:23; Admin Dose 10 MG; Start 10/06/16 at 21:00 Gabapentin (Neurontin) 600 mg TID PO Last administered on 10/07/16 08:36; Admin Dose 600 MG; Start 10/06/16 at 09:00 Insulin Glargine (Lantus) 10 unit DAILY@21 SC Last administered on 10/06/16 21 :33; Admin Dose 10 UNIT; Start 10/05/16 at 23:00 Acetaminophen/ Hydrocodone Bitart ([place] (5/325)) 1 tab Q6H PRN PO PAIN Last administered on 10/07/16 01:07; Admin Dose 1 TAB; Start 10/05/16 at 22:30 Morphine Sulfate (morphine) 3 mg Q4H PRN IV PAIN Last administered on 22:19; Admin Dose 3 MG; Start 10/05/16 at 22:30 Acetaminophen (Tylenol Tab) 650 mg Q6H PRN PO PAIN AND OR ELEVATED TEMP; Start 10/05/16 at 22:30 Miscellaneous Information 1 ea NOTE XX ; Start 10/05/16 at 23:00 Glucose (Glutose) 15 gm Q15M PRN PO DECREASED GLUCOSE; Start 10/05/16 at 23:00 Glucose (Glutose) 22.5 gm Q15M PRN PO DECREASED GLUCOSE; Start 10/05/16 at 23: 00 Dextrose (D50w Syringe) 25 ml Q15M PRN IV DECREASED GLUCOSE; Start 10/05/16 at 23:00 Dextrose (D50w Syringe) 50 ml Q15M PRN IV DECREASED GLUCOSE; Start 10/05/16 at 23:00 Glucagon (Glucagen) 1 mg Q15M PRN IM DECREASED GLUCOSE; Start 10/05/16 at 23:00 Glucose 15 gm 15 gm Q15M PRN BUCCAL DECREASED GLUCOSE; Start 10/05/16 at 23:00 Vancomycin HCl/ Sodium Chloride (Vancocin/NS) 250 ml @ 83.333 mls/ hr Q12H IVPB Last administered on 10/07/16 01:06; Admin Dose 83.333 MLS/HR; Start at 12:00 Heparin Sodium (Porcine) 5000 unit 5,000 unit Q12 SC Last administered on 08:38; Admin Dose 5,000 UNIT; Start 10/05/16 at 23:00 Cefepime HCl (Maxipime 1gm/50 ml (Pmx)) 50 ml @ 100 mls/hr Q12 IVPB Last administered on 10/07/16 08:34; Admin Dose 100 MLS/HR; Start 10/05/16 at 23:00 Clonazepam (Klonopin) 2 mg BID PRN PO SEIZURE; Start 10/05/16 at 23:30 Amitriptyline HCl (Elavil) 100 mg HS PO Last administered on 10/06/16 21:23; Admin Dose 100 MG; Start 10/05/16 at 23:45 Diagnostic Test (Pha) (Accucheck) 1 ea 02 XX ; Start 10/07/16 at 02:00 Miscellaneous Information (*Rx Drug Level Order Reminder*) VANCO TROUGH @ 1, 100 ON... ONCE ONCE XX ; Start 10/07/16 at 11:00; Stop 10/07/16 at 11:01 Clonazepam (Klonopin) 1 mg BID PO Last administered on 10/07/16 08:35; Admin Dose 1 MG; Start 10/06/16 at 12:30 HANSA BAILEY MD Oct 07, 2016 09:11
[2016-10-07 09:23] LABS: ADD UMIC NO; URINE BILIRUBIN (Dip) NEGATIVE (NEGATIVE); URINE BLOOD (Dip) NEGATIVE (NEGATIVE); URINE COLOR LT. YELLOW (YELLOW); URINE GLUCOSE (Dip) NEGATIVE (NEGATIVE); URINE KETONES (Dip) NEGATIVE (NEGATIVE); URINE LEUKOCYTE ESTERASE (Dip) NEGATIVE (NEGATIVE); URINE NITRITE (Dip) NEGATIVE (NEGATIVE); URINE TOTAL PROTEIN (Dip) NEGATIVE (NEGATIVE); URINE UROBILINOGEN (Dip) 0.2 E.U./dL (0.1-1.0)
[2016-10-07] MEDS: HYDROmorphONE 2 MG TAB PO PRN ×3 (11:11→23:25)
[2016-10-07] MEDS ORDERED: MIRTAZAPINE 15 MG TAB PO SCH (21:00)
[2016-10-07] MEDS: INSULIN GLARGINE [LANtus] 3 ML PEN SC SCH (21:18)
[2016-10-07] MEDS: ATORVASTATIN 10 MG TAB PO SCH (21:19)
[2016-10-07] MEDS: TAMSULOSIN (SR) 0.4 MG CAP PO SCH (21:19)
[2016-10-07 22:25] VITALS: BP 119/68; RESP 18
[2016-10-08] MEDS ORDERED: VANCOMYCIN 1 GM in NS 250 ML IVPB SCH
[2016-10-08] MEDS: ACCUCHECK XX SCH (00:21)
[2016-10-08] MEDS: INSULIN ASPART [NOVOLOG] 3 ML PEN SC SCH (08:00)
[2016-10-08 08:05] VITALS: BP 134/94; RESP 18
[2016-10-08] MEDS: FERROUS SULFATE (EC) 325 MG TAB PO SCH (08:54)
[2016-10-08] MEDS: clonAZEPAM 0.5 MG TAB PO SCH (08:54)
[2016-10-08] MEDS: SPIRONOLACTONE 50 MG TAB PO SCH (08:54)
[2016-10-08] MEDS: GABAPENTIN 300 MG CAP PO SCH (08:56)
[2016-10-08] MEDS: FINASTERIDE 5 MG TAB PO SCH (08:57)
[2016-10-08] MEDS: HEPARIN 5,000 UNIT/0.5 ML SYG SC SCH (08:58)
[2016-10-08] MEDS: CEFEPIME 1GM/50 ML (PMX) 50 ML IVPB SCH (09:00)
[2016-10-08] MEDS ORDERED: FUROSEMIDE 40 MG TAB PO SCH (09:00)
[2016-10-08] MEDS: HYDROmorphONE 2 MG TAB PO PRN (09:08)
--- NOTE | 2016-10-08 09:40 | PDOCDIS ---
Discharge Instructions DIAGNOSIS Discharge Diagnosis: Bilateral lower extremity cellulitis; chronic pain syndrome; diabetes melli CONDITION Patient Condition: Good HOME CARE INSTRUCTIONS: Special Diet: 1800 CALORIE ACTIVITY: Activity Restrictions: No Restrictions Do not operate Power Tool FOLLOW UP/APPOINTMENTS Appointments Pain management physician Dr. Pathak in 1 week; primary care physician Dr. Dipak Ferguson in 2 weeks HANSA BAILEY MD Oct 08, 2016 09:40
--- NOTE | 2016-10-08 09:46 | DS ---
Date/Time of Note Date/Time of Note DATE: 10/08/16 TIME: 09:42 Discharge Summary Admission/Discharge Info Admit Date/Time Oct 05, 2016 at 21:09 Discharge Date/Time 10/08/2016 Final Diagnosis Bilateral lower extremity cellulitis; diabetes mellitus type 2; BPH; chronic dysthymia with anxiety; chronic pain syndrome; osteoarthrosis/DJD; hypertension ; hyperlipidemia; new diagnosis hepatitis C antibody positive in blood Patient Condition: Fair Procedures Findings Left Ventricle: Normal left ventricular systolic function. Normal left ventricular cavity size. Normal left ventricular wall thickness. Ejection fraction is visually estimated at 55 %. Right Ventricle: Normal right ventricular size. Normal right ventricular systolic function. Left Atrium: The left atrium is normal in size. Right Atrium: The right atrium is normal in size. Mitral Valve: Mild mitral annular calcification. Aortic Valve: No significant aortic stenosis or insufficiency. Aortic sclerosis without stenosis. Tricuspid Valve: Unable to obtain RVSP due to minimal presence of tricuspid regurgitation. Pericardium: Normal pericardium with no significant pericardial effusion. Aorta: Normal aortic root. IVC: Normal size and normal respiratory collapse consistent with normal right atrial pressure. Conclusions Normal left ventricular systolic function. Normal left ventricular cavity size. Normal left ventricular wall thickness. Ejection fraction is visually estimated at 55 %. No significant valvular stenosis or regurgitation seen. PAP could not be estimated. RA pressure is 3 mmHg. Hx of Present Illness This is a 56-year-old male with a history of hypertension, dyslipidemia, BPH, chronic pain syndrome, substance abuse and "blood clot in my heart" who was transferred from [facility] for bilateral lower extremity cellulitis. The patient was transferred here because of insurance reasons. He initially went to [place] saying that his medications were stolen and also complained of redness and swelling on his legs. He stated that he has been having this problem for a long time, but he said recently his doctor 2 months ago started him on clindamycin, and then he stated it was actually 2 weeks ago that he was started on clindamycin. In any case, he stated that he has been noticing swelling on his left leg, which he said is chronic and small wounds and redness on the right leg. He also complains of pain on both of his legs which he states is chronic. He states that he has an ALLERGY TO MORPHINE and states that he has been taking Dilaudid at home and in fact he states he has a pain specialist that he follows up with regularly. He also reports shortness of breath which he attributed not taking his Dilaudid for his pain. Of note, the patient was admitted here in August of this year after he was again transferred from [facility] for altered mentation. At that time, he reported taking excessive [place], methamphetamine and possibly heroin. The patient also reported that he was diagnosed with "blood clot in my heart" 3 months ago at [place] for which he has been taking his Coumadin. He stated he was just told by his primary care doctor recently that he needs to have an ultrasound done again and until then he stated he was told to stop taking his Coumadin. Hospital Course 56-year-old male with a history of multiple orthopedic injuries bilateral lower extremity chronic injuries with recurrent cellulitis. He came in with cellulitis was placed on IV antibiotics specifically vancomycin. He has improved nicely and rapidly. Please note in addition his medication regimen was reevaluated and changed to avoid use of powerful anticholinergic medications and the patient adequately patient actively under treatment for BPH. He reports improvement only his BPH but actually the management of his chronic dysthymia. The patient does state that he is running low on his pain medication and asked for prescription for narcotics to go home with. Given that he is actually under the care of a pain management physician we will not do this and he can, and contact his pain management physician in the morning. One additional item he has new diagnosis of hep C antibody positivity in the blood he will need to follow-up with his primary care physician. He is otherwise competent for medical decision-making his right rehabilitation potential is good he is not a hazard to himself or others Home Meds Active Scripts Ferrous Sulfate* (Ferrous Sulfate*) 325 Mg Tabec, 325 MG PO TID for 30 Days, TAB Prov:JAMES KWON 08/18/16 Reported Medications Carisoprodol* (Carisoprodol*) 350 Mg Tablet, 350 MG PO DAILY Y for MUSCLE SPASMS , TAB 10/07/16 Clonazepam* (Clonazepam*) 2 Mg Tablet, 2 MG PO QHS, TAB 10/05/16 Amitriptyline Hcl* (Elavil*) 100 Mg Tab, 100 MG PO HS, #30 TAB 10/05/16 Metformin HCl (Metformin HCl ER) 500 Mg [id number], 500 MG PO BID, TAB 10/05/16 Furosemide* (Furosemide*) 40 Mg Tablet, 40 MG PO DAILY, TAB 10/05/16 Pravastatin Sodium (Pravastatin Sodium) 20 Mg Tablet, 20 MG PO HS, TAB 08/16/16 Aripiprazole* (Abilify*) 5 Mg Tab, 5 MG PO DAILY, #30 TAB 08/16/16 Mag Hydrox/Al Hydrox/Simeth (Antacid Liquid) 355 Ml Oral.susp, 30 ML PO Q8 Y for GASTROINTESTINAL UPSET, BOT 08/16/16 Gabapentin* (Gabapentin*) 800 Mg Tablet, 800 MG PO TID, #90 TAB 08/16/16 Lisinopril* (Lisinopril*) 10 Mg Tablet, 10 MG PO DAILY, #30 TAB 08/16/16 Cyclobenzaprine Hcl* (Cyclobenzaprine Hcl*) 10 Mg Tablet, 10 MG PO Q8 Y for MUSCLE SPASMS, #60 TAB 08/16/16 Finasteride* (Finasteride*) 5 Mg Tablet, 5 MG PO DAILY, TAB 08/16/16 Tamsulosin Hcl* (Tamsulosin Hcl*) 0.4 Mg Cap.er.24h, 0.4 MG PO HS, CAP 08/16/16 Hydromorphone Hcl* (Hydromorphone Hcl*) 4 Mg Tablet, 4 MG PO Q4 Y for PAIN, TAB 08/16/16 Spironolactone* (Spironolactone*) 100 Mg Tablet, 50 MG PO DAILY, TAB 08/16/16 Clonidine Hcl* (Clonidine Hcl*) 0.1 Mg Tab, 0.1 MG PO BID, TAB hold for SBP <110, HR <65 08/16/16 Discontinued Reported Medications Warfarin Sod (Coumadin) 5 Mg Tab, 5 MG PO DAILY, TAB 08/16/16 Tramadol HCl (Tramadol HCl) 50 Mg Tablet, 50 MG PO BID, #60 TAB 08/16/16 Discontinued Scripts Levofloxacin* (Levaquin*) 500 Mg Tablet, 500 MG PO DAILY for 7 Days, TAB Prov:JAMES KWON 08/18/16 Furosemide* (Lasix*) 20 Mg Tablet, 20 MG PO DAILY for 30 Days, TAB Prov:JAMES KWON 08/18/16 Follow-up Plan To follow-up with his primary care physician regarding the new diagnosis of hepatitis C antibody positivity Pending Labs Laboratory Tests Test 10/07/16 11:05 10/07/16 12:08 10/07/16 17:02 10/07/16 20:15 Hepatitis B Surface Antigen NEGATIVE (NEGATIVE) Hepatitis C Antibody REACTIVE (NEGATIVE) Rapid Plasma Reagin NONREACTIVE (NR) Vancomycin Level Trough 18.1ug/ml (10.0-20.0) Bedside Glucose 103mg/dL (70-220) 112mg/dL (70-220) 147mg/dL (70-220) Test 10/08/16 07:55 Bedside Glucose 103mg/dL (70-220) HANSA BAILEY MD Oct 08, 2016 09:46
[2016-10-08] MEDS ORDERED: BACTDS PO (09:50)
[2016-10-08] MEDS ORDERED: MIRT15TA5 PO (09:50)
[2016-10-08] MEDS ORDERED: FURO40TA4 PO (09:50)
[2016-10-08] MEDS ORDERED: TRIMETHOPRIM/SULFAMETHOX (DS) TAB PO SCH (10:00)
[2016-10-08] MEDS ORDERED: ARIPIPRAZOLE 2 MG TAB PO SCH (10:00)
== END 2016-10-08 12:45 | disposition home or self-care (01) | DRG 603 ==
LOC: PP2 21:09
PROVIDERS: ADMIT Family Medicine; ATTEND Family Medicine
DX: L03.116 Cellulitis of left lower limb (principal); L97.219 Non-pressure chronic ulcer of right calf with unspecified severity; I10 Essential (primary) hypertension; L03.115 Cellulitis of right lower limb; E11.9 Type 2 diabetes mellitus without complications; G89.4 Chronic pain syndrome; E78.5 Hyperlipidemia, unspecified; F34.1 Dysthymic disorder; N40.1 Benign prostatic hyperplasia with lower urinary tract symptoms; R33.8 Other retention of urine; F41.8 Other specified anxiety disorders; M19.90 Unspecified osteoarthritis, unspecified site; I87.8 Other specified disorders of veins; R76.8 Other specified abnormal immunological findings in serum; Z79.84 Long term (current) use of oral hypoglycemic drugs
CPT/HCPCS: 80053; 80202; 81003; 82962; 85025; 85610; 85730; 86592; 86803; 87040; 87340; J0692; J1170; J1815; J2270; J3370; J7040; J7050

== ENCOUNTER 2017-01-03 03:42 | Inpatient (IN) | payer BC ==
[~2017-01-03] VITALS: Ht 182.9 cm; Wt 103.3 kg
[~2017-01-03 03:42] MED LIST changes: +BACTDS PO; +CARI350T29 PO; +CLON2TAB3 PO; -COU5 PO; -FURO-110 PO; +FURO40TA4 PO; -LEVO500T72 PO; +METF-730 PO; +MIRT15TA5 PO; -PRA20 PO; +PRAV20TA2 PO; -TRAM50TA2 PO
[2017-01-03] MEDS ORDERED: ONDANSETRON 4 MG INJ IV STA (03:57)
[2017-01-03] MEDS ORDERED: morphine 4 MG/ML VIAL IV STA (03:57)
--- NOTE | 2017-01-03 04:01 | ERA ---
ER Documentation Chief Complaint Date/Time DATE: 01/03/17 TIME: 03:59 Chief Complaint Transferred from [facility] for Rt 4th digit toe infection x 3 days. HPI 56-year-old male transferred from [facility] with right fourth digit toe infection for 3 days. Diagnosed with osteomyelitis. Capitated patient. ROS All systems reviewed and are negative except as per history of present illness. Medications Home Meds Active Scripts Sulfamethoxazole-Trimethoprim* (Bactrim* DS) 800-160 Mg Tab, 1 TAB PO BID for 7 Days, TAB Prov:HANSA BAILEY MD 10/08/16 Mirtazapine* (Mirtazapine*) 15 Mg Tablet, 30 MG PO HS for 30 Days, TAB 1 Refill Replace his amitriptyline Prov:HANSA BAILEY MD 10/08/16 Furosemide* (Furosemide*) 40 Mg Tablet, 20 MG PO DAILY for 30 Days, TAB Prov:HANSA BAILEY MD 10/08/16 Ferrous Sulfate* (Ferrous Sulfate*) 325 Mg Tabec, 325 MG PO TID for 30 Days, TAB Prov:JAMES KWON 08/18/16 Reported Medications Carisoprodol* (Carisoprodol*) 350 Mg Tablet, 350 MG PO DAILY Y for MUSCLE SPASMS , TAB 10/07/16 Clonazepam* (Clonazepam*) 2 Mg Tablet, 2 MG PO QHS, TAB 10/05/16 Metformin HCl (Metformin HCl ER) 500 Mg [id number], 500 MG PO BID, TAB 10/05/16 Pravastatin Sodium (Pravastatin Sodium) 20 Mg Tablet, 20 MG PO HS, TAB 08/16/16 Aripiprazole* (Abilify*) 5 Mg Tab, 5 MG PO DAILY, #30 TAB 08/16/16 Mag Hydrox/Al Hydrox/Simeth (Antacid Liquid) 355 Ml Oral.susp, 30 ML PO Q8 Y for GASTROINTESTINAL UPSET, BOT 08/16/16 Gabapentin* (Gabapentin*) 800 Mg Tablet, 800 MG PO TID, #90 TAB 08/16/16 Lisinopril* (Lisinopril*) 10 Mg Tablet, 10 MG PO DAILY, #30 TAB 08/16/16 Cyclobenzaprine Hcl* (Cyclobenzaprine Hcl*) 10 Mg Tablet, 10 MG PO Q8 Y for MUSCLE SPASMS, #60 TAB 08/16/16 Finasteride* (Finasteride*) 5 Mg Tablet, 5 MG PO DAILY, TAB 08/16/16 Tamsulosin Hcl* (Tamsulosin Hcl*) 0.4 Mg Cap.er.24h, 0.4 MG PO HS, CAP 08/16/16 Hydromorphone Hcl* (Hydromorphone Hcl*) 4 Mg Tablet, 4 MG PO Q4 Y for PAIN, TAB 08/16/16 Spironolactone* (Spironolactone*) 100 Mg Tablet, 50 MG PO DAILY, TAB 08/16/16 Clonidine Hcl* (Clonidine Hcl*) 0.1 Mg Tab, 0.1 MG PO BID, TAB hold for SBP <110, HR <65 08/16/16 Allergies Allergies: Coded Allergies: No Known Allergy (Unverified , 08/16/16) PMhx/Soc History of Surgery: No Anesthesia Reaction: No Hx Neurological Disorder: Yes (SEIZURE) Hx Respiratory Disorders: No Hx Cardiac Disorders: Yes (HTN, CHF) Hx Psychiatric Problems: Yes (DEPRESSION, BPH, DM) Hx Miscellaneous Medical Probl: No Hx Alcohol Use: Yes (3 BEERS/ WK) Hx Substance Use: No Hx Tobacco Use: Yes (2 STICKS/DAY) Smoking Status: Current every day smoker Physical Exam Vitals Vital Signs Date Time Temp Pulse Resp B/P Pulse Ox O2 Delivery O2 Flow Rate FiO2 01/03/17 03:55 98.5 69 17 144/97 100 Physical Exam Const: [] Head: Atraumatic Eyes: Normal Conjunctiva ENT: Normal External Ears, Nose and Mouth. Neck: Full range of motion..~ No meningismus. Resp: Clear to auscultation bilaterally Cardio: Regular rate and rhythm, no murmurs Abd: Soft, non tender, non distended. Normal bowel sounds Skin: No petechiae or rashes Back: No midline or flank tenderness Ext: Right fourth throat with gangrenous changes noted Neur: Awake and alert Psych: Normal Mood and Affect Results 24 hrs Current Medications Medications (Trade) Dose Ordered Sig/Paulo Route PRN Reason Start Time Stop Time Status Last Admin Dose Admin Morphine Sulfate (morphine) 4 mg ONCE STAT IV 01/03/17 03:57 01/03/17 03:59 DC Ondansetron HCl (Zofran Inj) 4 mg ONCE STAT IV 01/03/17 03:57 01/03/17 03:59 DC Procedures/MDM Medical decision-makin-year-old male with osteomyelitis. Admitted to hospitalist. Departure Diagnosis: Primary Impression: Osteomyelitis Qualified Code: M86.9 - Osteomyelitis of right foot, unspecified type Condition: Serious STEVE CHRISTOPHER January 03, 2017 04:01
[2017-01-03] MEDS ORDERED: CARV3.12 PO (04:56)
[2017-01-03] MEDS ORDERED: AMIT100T2 PO (04:56)
[2017-01-03] MEDS ORDERED: IBUP-1542 PO (04:56)
[2017-01-03] MEDS ORDERED: ASPI-664 PO (04:56)
[2017-01-03 05:01] LABS: ADD SCAN DIFF NO
[2017-01-03 05:08] LABS: ADD UMIC NO; URINE BILIRUBIN (Dip) NEGATIVE (NEGATIVE); URINE BLOOD (Dip) NEGATIVE (NEGATIVE); URINE COLOR LT. YELLOW (YELLOW); URINE GLUCOSE (Dip) NEGATIVE (NEGATIVE); URINE KETONES (Dip) NEGATIVE (NEGATIVE); URINE LEUKOCYTE ESTERASE (Dip) NEGATIVE (NEGATIVE); URINE NITRITE (Dip) NEGATIVE (NEGATIVE); URINE TOTAL PROTEIN (Dip) NEGATIVE (NEGATIVE); URINE UROBILINOGEN (Dip) 0.2 E.U./dL (0.1-1.0)
[2017-01-03 05:10] LABS: BASOPHILS % 0.6 % (0.0-2.0); EOSINOPHILS # 0.1 10^3/ul (0.0-0.5); EOSINOPHILS % 1.6 % (0.0-7.0); HEMATOCRIT 38.7 % (42.0-52.0); HEMOGLOBIN 13.1 g/dl (14.0-18.0); LYMPHOCYTES % 29.1 % (15.0-51.0); MEAN CORPUSCULAR HEMOGLOBIN 31.3 pg (29.0-33.0); MEAN CORPUSCULAR HGB CONC 33.9 g/dl (32.0-37.0); MEAN CORPUSCULAR VOLUME 92.6 fl (82.0-101.0); MEAN PLATELET VOLUME 8.8 fl (7.4-10.4); MONOCYTE # 0.5 10^3/ul (0.3-0.9); MONOCYTES % 6.7 % (0.0-11.0); NEUTROPHIL # 4.3 10^3/ul (1.6-7.5); NEUTROPHILS % 61.3 % (39.0-77.0); PLATELET COUNT 277 10^3/UL (140-415); RED BLOOD COUNT 4.18 10^6/ul (4.70-6.10); RED CELL DISTRIBUTION WIDTH 14.4 % (11.5-14.5)
[2017-01-03 05:19] LABS: POTASSIUM 4.5 mmol/L (3.5-5.1)
[2017-01-03 05:21] LABS: ALBUMIN/GLOBULIN RATIO 1.17; BILIRUBIN,INDIRECT 0.3 mg/dl (0-1.1); BILIRUBIN,TOTAL 0.3 mg/dl (0.2-1.3); CREATININE 1.12 mg/dl (0.61-1.24); TOTAL PROTEIN 7.4 g/dl (6.1-8.1)
[2017-01-03 05:32] LABS: INR 0.95; PROTIME 12.7 Sec (12.2-14.2)
[2017-01-03 05:33] LABS: PARTIAL THROMBOPLASTIN TIME 27.9 Sec (25.0-35.0)
[2017-01-03] MEDS ORDERED: ALBUTEROL/IPRATROPIUM (NEB) 3 ML AMP HHN PRN (09:30)
[2017-01-03] MEDS ORDERED: ONDANSETRON 4 MG INJ IV PRN (09:30)
[2017-01-03] MEDS ORDERED: HYDROmorphONE 4 MG TAB PO PRN (09:30)
[2017-01-03] MEDS ORDERED: VANCOMYCIN IV PER PHARMACY XX SCH (09:30)
[2017-01-03] MEDS ORDERED: NACL 0.9% 3 ML SYG IV SCH (09:30)
[2017-01-03] MEDS: CEFEPIME 1GM/50 ML (PMX) 50 ML IVPB SCH ×2 (09:41→21:21)
[2017-01-03] MEDS ORDERED: VANCOMYCIN 2 GM in SOD CHLORIDE 0.9% 500 ML IVPB ONE (10:00)
[2017-01-03] MEDS: HYDROmorphONE 2 MG TAB PO PRN ×2 (10:54→17:21)
--- NOTE | 2017-01-03 12:09 | HP ---
DATE OF ADMISSION: 01/03/2017 CHIEF COMPLAINT: Right 4th toe infection. IDENTIFICATION: The patient is a 56-year-old homeless male with a history of hypertension, CHF, BP H, diabetes, seizure, depression who initially presented at [facility] and was transferred to the [facility] because of insurance reason. The patient presented complaining of right 4th toe infectio n, pain and swelling. He stated that this has been going on for a few days. He stated about 9 ruthann hs ago he thought that he had a bone infection in the same right 4th toe, for which he was treated w ith antibiotics with resolution of the infection according to the patient. He denies any fever, chi lls, chest pain, shortness of breath. According to the ER physician from [facility], an x-ray was done, which showed erosion of the bone i n his right 4th toe, likely osteomyelitis. The patient was supposed to be directly admitted to the hospital, but because of a bed situation, instead he was sent from [facility] to our ER here at [facility]. When he presented here at the ER, blood pressure was 144/97, heart rate 69, respiration rate 20, tem perature 98.5, oxygen saturation 100% on room air. Labs showed hemoglobin of 13.1, BUN 27. Otherwi se, CBC and CMP are within normal limits. The patient was given Zofran and morphine while he was in the ER. REVIEW OF SYSTEMS: A 12-point review of systems performed and negative except as mentioned in HPI. PAST MEDICAL HISTORY: As per HPI. SOCIAL HISTORY: Positive for tobacco. He drinks weekly about 4 beers. PHYSICAL EXAMINATION: VITAL SIGNS: Stable. GENERAL: No acute distress. He is alert and oriented. HEENT: No obvious head deformity. Pupils are reactive to light. Extraocular muscles intact. CARDIOVASCULAR: Shows regular rate and rhythm. No extra sounds. LUNGS: Clear. ABDOMEN: Soft, nontender, nondistended. Positive bowel sounds. EXTREMITIES: There is swelling on the right 4th toe, which is tender and warm to touch. LABORATORY: Pertinent positive as mentioned in the HPI. IMPRESSION: 1. Right 4th toe cellulitis with possible osteo. 2. History of CHF. 3. History of hypertension. 4. History of BPH. 5. History of diabetes. 6. History of depression. 7. History of seizure. PLAN: Will obtain imaging of his right foot. He will be placed on broad spectrum antibiotic, susan smallwood sure to history of diabetes. Will place a podiatry and ID consult. Will continue his home medications with adjustments as needed. We will place a social work consult given homelessness. e patient will also be provided pain medication as needed. Further workup and management per clinical course. Dictated By: STEVE JACINTO/EBONY Conf#: [id number] DID#: [id number]
[2017-01-03 14:10] VITALS: BP 141/88; PULSE 71; RESP 18; Ht 182.9 cm; Wt 103.3 kg
--- NOTE | 2017-01-03 16:56 | RADRPT ---
PROCEDURE: Right foot series CLINICAL INDICATION: Pain and evaluate for osteomyelitis. TECHNIQUE: Three views. COMPARISON: None available FINDINGS: Destructive changes are noted of the distal portion of the right fourth proximal phalanx and the rig ht fourth middle phalanx. Associated soft tissue swelling is present. If the patient has prior his tory of osteomyelitis this may reflect chronic changes. Acute superimposed on chronic osteomyelitis versus sequela of prior fracture of the diagnostic considerations. The remainder of the bone appeals examiner alization and joint spaces are normal. 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 No evidence for radiodense foreign bodies are present. Soft tissue calcification is noted adjacent to the right distal tibia. IMPRESSION: 1. Osteolytic changes of the right fourth proximal interphalangeal joint with involvement of the di stal right fourth proximal phalanx and middle phalanx as described above. Differential diagnosis to include osteomyelitis versus sequela of prior trauma. Recommend MRI with contrast to further evalu ate. 2. Soft tissue swelling of the right fourth digit RPTAT: [facility] .Fernanda Shoemaker MD, Date Time Electronically viewed and signed by .Fernanda Shoemaker MD, on 01/03/2017 16:55 .C/
[2017-01-03] MEDS: metFORMIN (XR) 500 MG TAB PO SCH (18:41)
[2017-01-03 20:07] VITALS: BP 150/91; RESP 19
[2017-01-03] MEDS: AMITRIPTYLINE 50 MG TAB PO SCH (21:26)
[2017-01-03] MEDS: HEPARIN 5,000 UNIT/0.5 ML VIAL SC SCH (21:27)
[2017-01-03] MEDS: VANCOMYCIN 1.25 GM in SOD CHLORIDE 0.9% 250 ML IVPB SCH (22:15)
--- NOTE | 2017-01-04 01:02 | CONS ---
DATE OF ADMISSION: 01/03/2017 DATE OF CONSULTATION: 01/03/2017 TYPE OF CONSULTATION: Infectious Disease. REASON FOR CONSULTATION: Antibiotic management. HISTORY OF PRESENT ILLNESS: Sergio Horowitz is a 56-year-old male who comes in with right 4th toe infection. The patient is a homeless male. His problems include: 1. Hypertension. 2. Adult-onset diabetes mellitus. 3. Coronary artery disease with CHF. 4. BPH. 5. Seizure disorder. 6. Depression. He initially presented to [facility], was transferred here for insurance reasons. He has a right 4th toe infection with pain and swelling. This has been going on for a number of days. Nine months ago, he thought he had bone infection in the same toe for which he was treated with antibiot ics with resolution of the infection. According to the ER, x-rays done at [facility] showed erosion of bone in his right 4th toe, likely osteomyelitis. In the emergency room, his white count is 7.0, H and H of 13.1 and 38.7, platelet count 277,000. BUN and creatinine are 27 over 1.12. His urine is negative for leukocyte esterase and nitrites. X-ray of the foot shows osteolytic changes in the right 4th proximal interphalangeal joint with involvement of the distal right 4th proximal phalanx a nd middle phalanx as described. The patient has prior history of osteomyelitis, and he has acute cheatham perimposed on chronic osteomyelitis versus sequelae of prior fracture for diagnostic considerations, soft-tissue swelling of the right 4th digit. PAST MEDICAL HISTORY: Operations as outlined, none. FAMILY HISTORY: Noncontributory. SOCIAL HISTORY: He smokes. He drinks about 4 beers weekly. ALLERGIES: NONE TO PENICILLIN, SULFA OR FOODS. MEDICATIONS: Per chart. REVIEW OF SYSTEMS: Noncontributory. PHYSICAL EXAMINATION: VITAL SIGNS: Stable. SKIN: Without generalized rash. HEENT: Within normal limits. NECK: Supple. LYMPH NODES: None palpable. LUNGS: Clear to P and A. HEART: Without murmur or gallop. ABDOMEN: Soft, nontender without organosplenomegaly or masses. EXTREMITIES: Swelling of the right 4th toe which is tender and warm to the touch. RECTAL AND GENITAL: Deferred. NEUROLOGIC: No focal neurological abnormalities. IMPRESSION AND PLAN: The patient has right 4th toe cellulitis and probable osteomyelitis. He will require podiatry consult. He was started on vancomycin and cefepime. Will await podiatric evaluati on. I will dictate my findings to the hospitalist. Dictated By: JOSE MARIA MURRY MD, JD/EBONY Conf#: [id number] DID#: [id number]
[2017-01-04] MEDS: ZOLPIDEM 5 MG TAB PO PRN ×2 (02:15→22:52)
[2017-01-04 05:14] LABS: ADD SCAN DIFF NO
[2017-01-04 05:15] LABS: BASOPHILS % 0.6 % (0.0-2.0); EOSINOPHILS # 0.1 10^3/ul (0.0-0.5); EOSINOPHILS % 1.7 % (0.0-7.0); HEMATOCRIT 34.7 % (42.0-52.0); HEMOGLOBIN 11.5 g/dl (14.0-18.0); LYMPHOCYTES # 1.5 10^3/ul (0.8-2.9); LYMPHOCYTES % 31.4 % (15.0-51.0); MEAN CORPUSCULAR HEMOGLOBIN 30.5 pg (29.0-33.0); MEAN CORPUSCULAR HGB CONC 33.1 g/dl (32.0-37.0); MEAN PLATELET VOLUME 8.7 fl (7.4-10.4); MONOCYTE # 0.4 10^3/ul (0.3-0.9); MONOCYTES % 7.7 % (0.0-11.0); NEUTROPHIL # 2.7 10^3/ul (1.6-7.5); NEUTROPHILS % 58.2 % (39.0-77.0); PLATELET COUNT 218 10^3/UL (140-415); RED BLOOD COUNT 3.77 10^6/ul (4.70-6.10); RED CELL DISTRIBUTION WIDTH 14.4 % (11.5-14.5); WHITE BLOOD COUNT 4.7 10^3/ul (4.8-10.8)
[2017-01-04 05:40] LABS: ALBUMIN 3.4 g/dl (3.3-4.9); ALBUMIN/GLOBULIN RATIO 1.06; CALCIUM 9.1 mg/dl (8.4-10.2); CREATININE 0.97 mg/dl (0.61-1.24); MAGNESIUM 1.6 mg/dl (1.7-2.5); PHOSPHORUS 4.1 mg/dl (2.5-4.9); POTASSIUM 4.6 mmol/L (3.5-5.1); TOTAL PROTEIN 6.6 g/dl (6.1-8.1)
[2017-01-04] MEDS: morphine 2 MG INJ IV PRN (07:05)
[2017-01-04 07:40] VITALS: BP 119/70; RESP 20
[2017-01-04] MEDS: metFORMIN (XR) 500 MG TAB PO SCH (10:05)
[2017-01-04] MEDS: CEFEPIME 1GM/50 ML (PMX) 50 ML IVPB SCH (10:05)
[2017-01-04] MEDS: FINASTERIDE 5 MG TAB PO SCH (10:08)
[2017-01-04] MEDS: ASPIRIN (EC) 81 MG TAB PO SCH (10:08)
[2017-01-04] MEDS: LISINOPRIL 10 MG TAB PO SCH (10:08)
[2017-01-04] MEDS: HEPARIN 5,000 UNIT/0.5 ML VIAL SC SCH ×2 (10:09→21:41)
[2017-01-04] MEDS: HYDROmorphONE 2 MG TAB PO PRN ×3 (10:34→21:35)
[2017-01-04] MEDS: VANCOMYCIN 1.25 GM in SOD CHLORIDE 0.9% 250 ML IVPB SCH ×2 (12:29→22:52)
[2017-01-04] MEDS ORDERED: GLUCOSE GEL 15 GRAM TUBE PO PRN ×2 (14:00)
[2017-01-04] MEDS ORDERED: DEXTROSE 50% 50 ML SYRINGE IV PRN ×2 (14:00)
[2017-01-04] MEDS ORDERED: GLUCAGON 1 MG INJ IM PRN (14:00)
[2017-01-04] MEDS ORDERED: GLUCOSE GEL 15 GRAM TUBE BUCCAL PRN (14:00)
--- NOTE | 2017-01-04 14:06 | PN ---
Date/Time of Note Date/Time of Note DATE: 01/04/17 TIME: 14:03 Assessment/Plan VTE Prophylaxis VTE Prophylaxis Intervention: heparin Lines/Catheters IV Catheter Type (from Nrs): Saline Lock Urinary Cath still in place: No Assessment/Plan Chief Complaint/Hosp Course Assessment and plan 1. Right foot fourth toe cellulitis with possible osteomyelitis. ID following. Await for podiatry input. 2. History of CHF. Continue on Lasix. 3. Essential hypertension. Continue antihypertensives and adjust as needed 4. BPH. Continue on finasteride 5. Diabetes. Continue insulin regimen. Of note A1c 5.9 Disposition plan: Continue with antibiotics. Await podiatry input. Discussed plan of care with Dr. Mathews Problems: Subjective 24 Hr Interval Summary Free Text/Dictation Comfortable at present. No apparent distress seen. Exam/Review of Systems Vital Signs Vitals Vital Signs Date Time Temp Pulse Resp B/P Pulse Ox O2 Delivery O2 Flow Rate FiO2 01/04/17 07:40 98.4 63 20 119/70 98 01/03/17 14:10 Room Air Intake and Output 01/03/17 01/03/17 01/04/17 14:59 22:59 06:59 Intake Total 650 ml 650 ml Balance 650 ml 650 ml Exam Constitutional: alert, oriented Psych: nl mood/affect Head: normocephalic Neck: supple, No jvd Respiratory: clear to auscultation, normal air movement Cardiovascular: regular rate and rhythm Gastrointestinal: non-tender, soft Musculoskeletal: other (swelling noted on right foot fourth digit) Neurological: TRAY DRIER II-XII intact, nl mental status, nl speech Results Result Diagram: 01/04/17 0450 01/04/17 045 Results 24 hrs Laboratory Tests Test 01/03/17 17:25 01/04/17 04:50 01/04/17 07:56 01/04/17 11:48 Bedside Glucose 108 109 218 White Blood Count 4.7 #L Red Blood Count 3.77 L Hemoglobin 11.5 L Hematocrit 34.7 L Mean Corpuscular Volume 92.0 Mean Corpuscular Hemoglobin 30.5 Mean Corpuscular Hemoglobin Concent 33.1 Red Cell Distribution Width 14.4 Platelet Count 218 # Mean Platelet Volume 8.7 Neutrophils % 58.2 Lymphocytes % 31.4 Monocytes % 7.7 Eosinophils % 1.7 Basophils % 0.6 Nucleated Red Blood Cells % 0.0 Neutrophils # 2.7 Lymphocytes # 1.5 Monocytes # 0.4 Eosinophils # 0.1 Basophils # 0.0 Nucleated Red Blood Cells # 0.0 Sodium Level 135 Potassium Level 4.6 Chloride Level 107 Carbon Dioxide Level 25 Anion Gap 8 # Blood Urea Nitrogen 22 H Creatinine 0.97 Glucose Level 94 Hemoglobin A1c 5.9 Calcium Level 9.1 Phosphorus Level 4.1 Magnesium Level 1.6 L Total Bilirubin 0.0 L Direct Bilirubin 0.00 Indirect Bilirubin 0.0 Aspartate Amino Transf (AST/SGOT) 22 Alanine Aminotransferase (ALT/SGPT) 23 Alkaline Phosphatase 62 Total Protein 6.6 Albumin 3.4 Globulin 3.20 Albumin/Globulin Ratio 1.06 Medications Medications Current Medications Ondansetron HCl (Zofran Inj) 4 mg Q6H PRN IV NAUSEA AND/OR VOMITING; Start at 09:30 Acetaminophen (Tylenol Tab) 650 mg Q6H PRN PO PAIN LEVEL 1-3 OR FEVER; Start at 09:30 Morphine Sulfate (morphine) 2 mg Q4H PRN IV SEVERE PAIN LEVEL 7-10 Last administered on 01/04/17 07:05; Admin Dose 2 MG; Start 01/03/17 at 09:30 Heparin Sodium (Porcine) (Heparin (5000 Units/0.5 ml)) 5,000 unit Q12 SC Last administered on 01/04/17 10:09; Admin Dose 5,000 UNIT; Start 01/03/17 at 21:00 Amitriptyline HCl (Elavil) 100 mg QHS PO Last administered on 01/03/17 21:26; Admin Dose 100 MG; Start 01/03/17 at 21:00 Aspirin (Halfprin) 81 mg DAILY PO Last administered on 01/04/17 10:08; Admin Dose 81 MG; Start 01/04/17 at 09:00 Carvedilol (Coreg) 3.125 mg DAILY PO Last administered on 01/04/17 10:07; Admin Dose 3.125 MG; Start 01/04/17 at 09:00 Clonidine (Catapres) 0.1 mg BID PO Last administered on 01/04/17 10:07; Admin Dose 0.1 MG; Start 01/03/17 at 21:00 Finasteride (Proscar) 5 mg DAILY PO Last administered on 01/04/17 10:08; Admin Dose 5 MG; Start 01/04/17 at 09:00 Lisinopril (Zestril) 10 mg DAILY PO Last administered on 01/04/17 10:08; Admin Dose 10 MG; Start 01/04/17 at 09:00 Hydromorphone HCl 4 mg 4 mg Q4H PRN PO PAIN Last administered on 01/04/17 10: 34; Admin Dose 4 MG; Start 01/03/17 at 11:00 Vancomycin HCl/ Sodium Chloride (Vancocin/NS) 250 ml @ 83.333 mls/ hr Q12H IVPB Last administered on 01/04/17 12:29; Admin Dose 83.333 MLS/HR; Start at 23:00 Zolpidem Tartrate (Ambien) 10 mg HS PRN PO INSOMNIA Last administered on 02:15; Admin Dose 10 MG; Start 01/04/17 at 02:30 Miscellaneous Information (*Rx Drug Level Order Reminder*) VANCOMYCIN TROUGH AT 2200 ONCE ONCE XX ; Start 01/04/17 at 22:00; Stop 01/04/17 at 22:01 Diagnostic Test (Pha) (Accu-Chek) 1 ea 02 XX ; Start 01/05/17 at 02:00 Furosemide (Lasix) 40 mg DAILY PO ; Start 01/04/17 at 14:00 Miscellaneous Information 1 ea NOTE XX ; Start 01/04/17 at 14:00 Glucose (Glutose) 15 gm Q15M PRN PO DECREASED GLUCOSE; Start 01/04/17 at 14:00 Glucose (Glutose) 22.5 gm Q15M PRN PO DECREASED GLUCOSE; Start 01/04/17 at 14: 00 Dextrose (D50w Syringe) 25 ml Q15M PRN IV DECREASED GLUCOSE; Start 01/04/17 at 14:00 Dextrose (D50w Syringe) 50 ml Q15M PRN IV DECREASED GLUCOSE; Start 01/04/17 at 14:00 Glucagon (Glucagen) 1 mg Q15M PRN IM DECREASED GLUCOSE; Start 01/04/17 at 14:00 Glucose (Glutose) 15 gm Q15M PRN BUCCAL DECREASED GLUCOSE; Start 01/04/17 at 14 :00 Levofloxacin (Levaquin) 500 mg DAILY@06 PO ; Start 01/05/17 at 06:00 Levofloxacin (Levaquin) 500 mg ONCE ONCE PO ; Start 01/04/17 at 14:30; Stop at 14:31 JAMES KWON January 04, 2017 14:06
--- NOTE | 2017-01-04 14:25 | PN ---
DATE: 01/04/2017 SUBJECTIVE: No acute changes. The patient is alert, eating lunch, looks comfortable. Denies pain, no fevers. MICROBIOLOGY: Blood cultures remain negative. ANTIMICROBIALS: The patient is on: 1. IV vancomycin. 2. Cefepime. PHYSICAL EXAMINATION: GENERAL: Well-developed, well-nourished, middle-aged white man who is alert, in no distress. HEENT: Head atraumatic, normocephalic. Sclerae anicteric. Buccal mucosa dry. NECK: Supple, trachea midline. CHEST: Rise symmetrical. Breath sounds clear. HEART: S1, S2. ABDOMEN: Soft, bowel sounds present. EXTREMITIES: Without cyanosis, right foot with resolving edema. ASSESSMENT: 1. Right foot cellulitis with swelling of the right fourth digit, rule out osteomyelitis. 2. Diabetes. 3. Hypertension. PLAN: The patient remains stable. Continue vancomycin. Change cefepime to oral Levaquin. Await f or podiatry evaluation. Consider MRI of foot if it has not been done yet. Dictated By: BALBIR HOUSTON PROCUREMENT MANAGER for JOSE MARIA HOLLEY/EBONY Conf#: [id number] DID#: [id number]
[2017-01-04] MEDS ORDERED: LEVOFLOXACIN 500 MG TAB PO ONE (14:30)
[2017-01-04] MEDS: FUROSEMIDE 40 MG TAB PO SCH (14:34)
[2017-01-04] MEDS: INSULIN ASPART [NOVOLOG] 3 ML PEN SC SCH ×2 (17:02→21:00)
--- NOTE | 2017-01-04 19:58 | RADRPT ---
PROCEDURE: US bilateral lower extremity arteries. CLINICAL INDICATION: Bilateral leg pain. Claudication that interferes significantly with the alysha ent's lifestyle. TECHNIQUE: Multiple longitudinal and transverse images of the bilateral lower extremity arteries w ere obtained with marshall scale, pulsed Doppler, and color Doppler imaging. COMPARISON: No prior studies are available for comparison. 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 There is normal triphasic flow throughout the arterial system bilaterally. There is no high velocit y or dampened flow to suggest significant stenosis. IMPRESSION: 1. Normal bilateral lower extremity arterial Doppler. RPTAT: QQ .Horacio Cornejo MD, MD Date Time Electronically viewed and signed by .Horacio Cornejo MD, on 01/04/2017 19:58 .R/
[2017-01-04 20:14] VITALS: BP 118/68; RESP 18
[2017-01-04] MEDS: AMITRIPTYLINE 50 MG TAB PO SCH (21:35)
--- NOTE | 2017-01-05 00:01 | PN ---
Date/Time of Note Date/Time of Note DATE: 01/05/17 TIME: 00:01 Assessment/Plan Lines/Catheters IV C[facility]ter Type (from [email or web address] Saline Lock Can in Place (from [facility] [[email or web address] No Exam/Review of Systems Vital Signs Vitals Vital Signs Date Time Temp Pulse Resp B/P Pulse Ox O2 Delivery O2 Flow Rate FiO2 01/05/17 13:39 97 110/68 01/05/17 07:40 98.4 18 96 01/03/17 14:10 Room Air Intake and Output 01/04/17 01/04/17 01/05/17 15:00 23:00 07:00 Intake Total 50 ml 1450 ml 490 ml Balance 50 ml 1450 ml 490 ml Results Result Diagram: 01/05/17 0520 01/05/17 0520 STEPHEN BRICEÑO MD January 05, 2017 00:01
[2017-01-05] MEDS: ACCU-CHEK XX SCH (02:00)
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
[2017-01-05 05:54] LABS: ADD SCAN DIFF NO
[2017-01-05] MEDS: LEVOFLOXACIN 500 MG TAB PO SCH (05:56)
[2017-01-05] MEDS: HYDROmorphONE 2 MG TAB PO PRN ×2 (05:56→10:42)
[2017-01-05 05:59] LABS: BASOPHILS % 0.6 % (0.0-2.0); EOSINOPHILS # 0.1 10^3/ul (0.0-0.5); EOSINOPHILS % 1.3 % (0.0-7.0); HEMATOCRIT 38.8 % (42.0-52.0); HEMOGLOBIN 13.1 g/dl (14.0-18.0); LYMPHOCYTES # 1.5 10^3/ul (0.8-2.9); LYMPHOCYTES % 27.4 % (15.0-51.0); MEAN CORPUSCULAR HEMOGLOBIN 31.5 pg (29.0-33.0); MEAN CORPUSCULAR HGB CONC 33.8 g/dl (32.0-37.0); MEAN CORPUSCULAR VOLUME 93.3 fl (82.0-101.0); MONOCYTE # 0.4 10^3/ul (0.3-0.9); MONOCYTES % 7.8 % (0.0-11.0); NEUTROPHIL # 3.4 10^3/ul (1.6-7.5); NEUTROPHILS % 62.2 % (39.0-77.0); PLATELET COUNT 228 10^3/UL (140-415); RED BLOOD COUNT 4.16 10^6/ul (4.70-6.10); RED CELL DISTRIBUTION WIDTH 14.2 % (11.5-14.5); WHITE BLOOD COUNT 5.4 10^3/ul (4.8-10.8)
[2017-01-05 06:27] LABS: CALCIUM 9.7 mg/dl (8.4-10.2); CREATININE 1.1 mg/dl (0.61-1.24); POTASSIUM 5.1 mmol/L (3.5-5.1)
[2017-01-05 07:40] VITALS: BP 119/80; RESP 18
[2017-01-05] MEDS: morphine 2 MG INJ IV PRN ×3 (08:14→20:32)
[2017-01-05] MEDS: LISINOPRIL 10 MG TAB PO SCH (08:15)
[2017-01-05] MEDS: ASPIRIN (EC) 81 MG TAB PO SCH (08:15)
[2017-01-05] MEDS: FINASTERIDE 5 MG TAB PO SCH (08:15)
[2017-01-05] MEDS: FUROSEMIDE 40 MG TAB PO SCH (08:15)
[2017-01-05] MEDS: HEPARIN 5,000 UNIT/0.5 ML VIAL SC SCH ×2 (08:17→22:25)
[2017-01-05] MEDS: INSULIN ASPART [NOVOLOG] 3 ML PEN SC SCH ×4 (08:19→22:20)
--- NOTE | 2017-01-05 09:10 | CONS ---
Date/Time of Note Date/Time of Note DATE: 01/04/17 TIME: 19:06 Assessment/Plan Assessment/Plan Problems: (1) Osteomyelitis Status: Acute Qualifiers: Qualified Code: M86.9 - Osteomyelitis of right foot, unspecified type (2) Diabetes mellitus type 2 in nonobese Status: Chronic (3) Chronic pain syndrome Status: Chronic (4) Lumbar disc disease Status: Chronic (5) Hepatitis C antibody test positive Status: Chronic Additional Assessment/Plan This is a 56-year-old male patient with infection in the right fourth toe and radiographic findings consistent with osteomyelitis. Patient's prognosis is guarded. 1. IV antibiotics as per infectious disease 2. Vascular consultation for evaluation of lower extremity arterial supply 3. No surgery recommended at this time for the right fourth toe 4. MRI will be ordered 5. Partial weightbearing right foot with postop shoe is okay Patient will be followed in-house. Patient may benefit from hyperbaric oxygen treatment on an outpatient basis. Upon discharge, patient may follow-up at the amputation prevention center. Consultation Date/Type/Reason Admit Date/Time January 03, 2017 at 03:58 Date of Consultation: January 03, 2017 Type of Consultation: Foot and ankle surgery Reason for Consultation Evaluation of right fourth toe pain and possible infection. Hx of Present Illness Thank you very much for your kind consultation. As you very well know this is a 56-year-old homeless male with multiple medical problems including diabetes mellitus, hypertension, CHF, BPH, seizure disorder, depression who presented initially at [facility] and then was transferred to [facility] secondary to insurance reasons. Patient complains of right fourth toe infection, swelling and pain for several days. Patient reports a history of infection in the same area about 9 months ago, treated with antibiotics. Patient says that his toe became better at that time. Patient denies fever, chills, nausea or vomiting. Denies chest pain or shortness of breath. Patient denies any specific trauma to his right fourth toe or right foot. Constitutional: No chills, No diaphoresis, No disoriented, No febrile, No improved, No no complaints, No other, No poor po, No requiring IVF, No requiring O2 Eyes: No discharge, No no complaints, No other, No pain, No redness, No visual change ENT: No bleeding, No congestion, No discharge, No dysphagia, No no complaints, No other, No pain, No sore throat Respiratory: No cough, No no complaints, No other, No pain, No pleuritic pain, No shortness of breath, No sputum, No wheezing Cardiovascular: No chest pain, No edema, No lightheadedness, No no complaints, No orthopenea, No other, No palpitations, No paroxysmal nocturnal dyspnea Gastrointestinal: No blood, No constipation, No decreased appetite, No diarrhea , No flatus, No nausea, No no complaints, No other, No pain, No passing stool, No vomiting Genitourinary: No bleeding, No discharge, No dysuria, No flank pain, No hematuria, No no complaints, No other Psychological: nl mood/affect Past Medical History As per history of present illness. Past Surgical History As per history of present illness. Social History As per history of present illness. Smoking Status: Light tobacco smoker Exam/Review of Systems Vital Signs Vitals Vital Signs Date Time Temp Pulse Resp B/P Pulse Ox O2 Delivery O2 Flow Rate FiO2 01/05/17 07:40 98.4 81 18 119/80 96 01/03/17 14:10 Room Air Intake and Output 01/04/17 01/04/17 01/05/17 15:00 23:00 07:00 Intake Total 50 ml 1450 ml 490 ml Balance 50 ml 1450 ml 490 ml Exam GENERAL: Patient is in no acute distress sitting comfortably in the exam chair VASCULAR: Pedal pulses are weakly palpable weakly palpable bilateral lower extremity. There is edema of the right fourth toe with mild edema noted bilateral lower extremity. Normal temperature gradient noted bilaterally. Capillary filling time is delayed on all toes. No varicose veins noted in the lower extremity NEUROLOGICAL: Protective sensation is diminished to sharp, dull, vibratory and temperature stimuli bilaterally. Deep tendon reflexes are normal bilateral SKIN: No open wounds noted on examination. There are no abnormal skin lesions noted. No erythema noted. Toenails are elongated, discolored with subungual debris bilateral feet MUSCULOSKELETAL: Tender right fourth toe to exam. Contracted toes on both feet with rectus foot type. Muscle power is 5/5 bilaterally Imaging reviewed. Labs reviewed Results Result Diagram: 01/05/17 0520 01/05/17 0520 Results 24 hrs Laboratory Tests Test 01/04/17 11:48 01/04/17 16:20 01/04/17 21:39 01/04/17 22:05 Bedside Glucose 218 91 123 Vancomycin Level Trough 14.2 Test 01/05/17 05:20 01/05/17 07:56 White Blood Count 5.4 Red Blood Count 4.16 L Hemoglobin 13.1 L Hematocrit 38.8 L Mean Corpuscular Volume 93.3 Mean Corpuscular Hemoglobin 31.5 Mean Corpuscular Hemoglobin Concent 33.8 Red Cell Distribution Width 14.2 Platelet Count 228 Mean Platelet Volume 9.0 Neutrophils % 62.2 Lymphocytes % 27.4 Monocytes % 7.8 Eosinophils % 1.3 Basophils % 0.6 Nucleated Red Blood Cells % 0.0 Neutrophils # 3.4 Lymphocytes # 1.5 Monocytes # 0.4 Eosinophils # 0.1 Basophils # 0.0 Nucleated Red Blood Cells # 0.0 Sodium Level 134 L Potassium Level 5.1 Chloride Level 103 Carbon Dioxide Level 25 Anion Gap 11 Blood Urea Nitrogen 26 H Creatinine 1.10 Glucose Level 96 Calcium Level 9.7 Magnesium Level 1.4 L Bedside Glucose 144 Medications Medications Current Medications Ondansetron HCl (Zofran Inj) 4 mg Q6H PRN IV NAUSEA AND/OR VOMITING; Start at 09:30 Acetaminophen (Tylenol Tab) 650 mg Q6H PRN PO PAIN LEVEL 1-3 OR FEVER; Start at 09:30 Morphine Sulfate (morphine) 2 mg Q4H PRN IV SEVERE PAIN LEVEL 7-10 Last administered on 01/05/17 08:14; Admin Dose 2 MG; Start 01/03/17 at 09:30 Heparin Sodium (Porcine) (Heparin (5000 Units/0.5 ml)) 5,000 unit Q12 SC Last administered on 01/05/17 08:17; Admin Dose 5,000 UNIT; Start 01/03/17 at 21:00 Amitriptyline HCl (Elavil) 100 mg QHS PO Last administered on 01/04/17 21:35; Admin Dose 100 MG; Start 01/03/17 at 21:00 Aspirin (Halfprin) 81 mg DAILY PO Last administered on 01/05/17 08:15; Admin Dose 81 MG; Start 01/04/17 at 09:00 Carvedilol (Coreg) 3.125 mg DAILY PO Last administered on 01/05/17 08:15; Admin Dose 3.125 MG; Start 01/04/17 at 09:00 Clonidine (Catapres) 0.1 mg BID PO Last administered on 01/05/17 08:15; Admin Dose 0.1 MG; Start 01/03/17 at 21:00 Finasteride (Proscar) 5 mg DAILY PO Last administered on 01/05/17 08:15; Admin Dose 5 MG; Start 01/04/17 at 09:00 Lisinopril (Zestril) 10 mg DAILY PO Last administered on 01/05/17 08:15; Admin Dose 10 MG; Start 01/04/17 at 09:00 Hydromorphone HCl 4 mg 4 mg Q4H PRN PO PAIN Last administered on 01/05/17 05: 56; Admin Dose 4 MG; Start 01/03/17 at 11:00 Vancomycin HCl/ Sodium Chloride (Vancocin/NS) 250 ml @ 83.333 mls/ hr Q12H IVPB Last administered on 01/04/17 22:52; Admin Dose 83.333 MLS/HR; Start at 23:00 Zolpidem Tartrate (Ambien) 10 mg HS PRN PO INSOMNIA Last administered on 22:52; Admin Dose 10 MG; Start 01/04/17 at 02:30 Diagnostic Test (Pha) (Accu-Chek) 1 ea 02 XX ; Start 01/05/17 at 02:00 Furosemide (Lasix) 40 mg DAILY PO Last administered on 01/05/17 08:15; Admin Dose 40 MG; Start 01/04/17 at 14:00 Miscellaneous Information 1 ea NOTE XX ; Start 01/04/17 at 14:00 Glucose (Glutose) 15 gm Q15M PRN PO DECREASED GLUCOSE; Start 01/04/17 at 14:00 Glucose (Glutose) 22.5 gm Q15M PRN PO DECREASED GLUCOSE; Start 01/04/17 at 14: 00 Dextrose (D50w Syringe) 25 ml Q15M PRN IV DECREASED GLUCOSE; Start 01/04/17 at 14:00 Dextrose (D50w Syringe) 50 ml Q15M PRN IV DECREASED GLUCOSE; Start 01/04/17 at 14:00 Glucagon (Glucagen) 1 mg Q15M PRN IM DECREASED GLUCOSE; Start 5/25/17 at 14:00 Glucose (Glutose) 15 gm Q15M PRN BUCCAL DECREASED GLUCOSE; Start 01/04/17 at 14 :00 Levofloxacin (Levaquin) 500 mg DAILY@06 PO Last administered on 01/05/17t 05:56 ; Admin Dose 500 MG; Start 01/05/17 at 06:00 LISS BURTON DPM January 05, 2017 09:10
[2017-01-05] MEDS: VANCOMYCIN 1.25 GM in SOD CHLORIDE 0.9% 250 ML IVPB SCH ×2 (10:42→23:27)
[2017-01-05 13:39] VITALS: BP 110/68; PULSE 97
[2017-01-05] MEDS ORDERED: SOD CHLORIDE 0.9% 500 ML IV ONE (14:00)
--- NOTE | 2017-01-05 14:15 | CONS ---
Date/Time of Note Date/Time of Note DATE: 01/05/17 TIME: 14:14 Assessment/Plan Assessment/Plan Chief Complaint/Hosp Course SUBJECTIVE: No acute changes. The patient is alert, eating lunch, looks comfortable. Denies pain, no fevers. MICROBIOLOGY: Blood cultures remain negative. ANTIMICROBIALS: The patient is on: 1. IV vancomycin. 2. Levaquin. PHYSICAL EXAMINATION: GENERAL: Well-developed, well-nourished, middle-aged white man who is alert, in no distress. HEENT: Head atraumatic, normocephalic. Sclerae anicteric. Buccal mucosa dry. NECK: Supple, trachea midline. CHEST: Rise symmetrical. Breath sounds clear. HEART: S1, S2. ABDOMEN: Soft, bowel sounds present. EXTREMITIES: Without cyanosis, right foot with resolving edema. ASSESSMENT: 1. Right foot cellulitis with swelling of the right fourth digit, rule out osteomyelitis. 2. Diabetes. 3. Hypertension. PLAN: The patient remains stable. Continue abx. Follow podiatry rec-s. [facility] staff Problems: Consultation Date/Type/Reason Admit Date/Time January 03, 2017 at 03:58 Initial Consult Date 01/03/17 Type of Consultation: id Exam/Review of Systems Vital Signs Vitals Vital Signs Date Time Temp Pulse Resp B/P Pulse Ox O2 Delivery O2 Flow Rate FiO2 01/05/17 13:39 97 110/68 01/05/17 07:40 98.4 18 96 01/03/17 14:10 Room Air Intake and Output 01/04/17 01/04/17 01/05/17 15:00 23:00 07:00 Intake Total 50 ml 1450 ml 490 ml Balance 50 ml 1450 ml 490 ml Results Result Diagram: 01/05/17 0520 01/05/17 0520 Results 24 hrs Laboratory Tests Test 01/04/17 16:20 01/04/17 21:39 01/04/17 22:05 01/05/17 05:20 Bedside Glucose 91 123 Vancomycin Level Trough 14.2 White Blood Count 5.4 Red Blood Count 4.16 L Hemoglobin 13.1 L Hematocrit 38.8 L Mean Corpuscular Volume 93.3 Mean Corpuscular Hemoglobin 31.5 Mean Corpuscular Hemoglobin Concent 33.8 Red Cell Distribution Width 14.2 Platelet Count 228 Mean Platelet Volume 9.0 Neutrophils % 62.2 Lymphocytes % 27.4 Monocytes % 7.8 Eosinophils % 1.3 Basophils % 0.6 Nucleated Red Blood Cells % 0.0 Neutrophils # 3.4 Lymphocytes # 1.5 Monocytes # 0.4 Eosinophils # 0.1 Basophils # 0.0 Nucleated Red Blood Cells # 0.0 Sodium Level 134 L Potassium Level 5.1 Chloride Level 103 Carbon Dioxide Level 25 Anion Gap 11 Blood Urea Nitrogen 26 H Creatinine 1.10 Glucose Level 96 Calcium Level 9.7 Magnesium Level 1.4 L Test 01/05/17 07:56 01/05/17 11:57 01/05/17 13:17 Bedside Glucose 144 88 Lab Scanned Report REFERENCE LAB Medications Medications Current Medications Ondansetron HCl (Zofran Inj) 4 mg Q6H PRN IV NAUSEA AND/OR VOMITING; Start at 09:30 Acetaminophen (Tylenol Tab) 650 mg Q6H PRN PO PAIN LEVEL 1-3 OR FEVER; Start at 09:30 Morphine Sulfate (morphine) 2 mg Q4H PRN IV SEVERE PAIN LEVEL 7-10 Last administered on 01/05/17 13:47; Admin Dose 2 MG; Start 01/03/17 at 09:30 Heparin Sodium (Porcine) (Heparin (5000 Units/0.5 ml)) 5,000 unit Q12 SC Last administered on 01/05/17 08:17; Admin Dose 5,000 UNIT; Start 01/03/17 at 21:00 Amitriptyline HCl (Elavil) 100 mg QHS PO Last administered on 01/04/17 21:35; Admin Dose 100 MG; Start 01/03/17 at 21:00 Aspirin (Halfprin) 81 mg DAILY PO Last administered on 01/05/17 08:15; Admin Dose 81 MG; Start 01/04/17 at 09:00 Carvedilol (Coreg) 3.125 mg DAILY PO Last administered on 01/05/17 08:15; Admin Dose 3.125 MG; Start 01/04/17 at 09:00 Clonidine (Catapres) 0.1 mg BID PO Last administered on 01/05/17 08:15; Admin Dose 0.1 MG; Start 01/03/17 at 21:00 Finasteride (Proscar) 5 mg DAILY PO Last administered on 01/05/17 08:15; Admin Dose 5 MG; Start 01/04/17 at 09:00 Lisinopril (Zestril) 10 mg DAILY PO Last administered on 01/05/17 08:15; Admin Dose 10 MG; Start 01/04/17 at 09:00 Hydromorphone HCl 4 mg 4 mg Q4H PRN PO PAIN Last administered on 01/05/17 10: 42; Admin Dose 4 MG; Start 01/03/17 at 11:00 Vancomycin HCl/ Sodium Chloride (Vancocin/NS) 250 ml @ 83.333 mls/ hr Q12H IVPB Last administered on 01/05/17 10:42; Admin Dose 83.333 MLS/HR; Start at 23:00 Zolpidem Tartrate (Ambien) 10 mg HS PRN PO INSOMNIA Last administered on 22:52; Admin Dose 10 MG; Start 01/04/17 at 02:30 Diagnostic Test (Pha) (Accu-Chek) 1 ea 02 XX ; Start 01/05/17 at 02:00 Furosemide (Lasix) 40 mg DAILY PO Last administered on 01/05/17 08:15; Admin Dose 40 MG; Start 01/04/17 at 14:00 Miscellaneous Information 1 ea NOTE XX ; Start 01/04/17 at 14:00 Glucose (Glutose) 15 gm Q15M PRN PO DECREASED GLUCOSE; Start 01/04/17 at 14:00 Glucose (Glutose) 22.5 gm Q15M PRN PO DECREASED GLUCOSE; Start 01/04/17 at 14: 00 Dextrose (D50w Syringe) 25 ml Q15M PRN IV DECREASED GLUCOSE; Start 01/04/17 at 14:00 Dextrose (D50w Syringe) 50 ml Q15M PRN IV DECREASED GLUCOSE; Start 01/04/17 at 14:00 Glucagon (Glucagen) 1 mg Q15M PRN IM DECREASED GLUCOSE; Start 01/04/17 at 14:00 Glucose (Glutose) 15 gm Q15M PRN BUCCAL DECREASED GLUCOSE; Start 01/04/17 at 14 :00 Levofloxacin 500 mg 500 mg DAILY@06 PO Last administered on 01/05/17 05:56; Admin Dose 500 MG; Start 01/05/17 at 06:00 Sodium Chloride 500 ml @ 500 mls/hr Q1H ONCE IV Last administered on t 13:47; Admin Dose 500 MLS/HR; Start 01/05/17 at 14:00; Stop 01/05/17 at 14: 59 Magnesium Sulfate/ Sodium Chloride (Magnesium Sulfate/NS) 106 ml @ 35.333 mls/ hr ONCE ONCE IVPB ; Start 01/05/17 at 15:00; Stop 01/05/17 at 17:59 BALBIR HOUSTON NP January 05, 2017 14:15
--- NOTE | 2017-01-05 14:26 | PN ---
Date/Time of Note Date/Time of Note DATE: 01/05/17 TIME: 14:20 Assessment/Plan Lines/Catheters IV Catheter Type (from [facility]): Saline Lock Can in Place (from [facility]): No Assessment/Plan Chief Complaint/Hosp Course -Bilateral lower extremity atherosclerosis with disabling claudication (50- 100yards) and right lower extremity diabetic foot infection and fourth toe osteomyelitis: It seems the patient has developed a significant infection of his lower extremity. At the moment the noninvasive vascular studies did not demonstrate flow limiting stenosis of his infrainguinal disease. No further vascular intervention for now. Recommend PT for his claudication -Recommend vascular optimization (BP meds, diet, nutrition, exercise, sugar control, antiplatelets). 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 -Will plan to obtain a reflux study as an outpatient to further delineate his venous insufficiency and varicose veins -Discussed findings, plan and management with the patient and he understands. -Thank you for allowing us to participate in the care of your patient. Please call with any questions. Problems: Subjective 24 Hr Interval Summary no new vascular events overnight Exam/Review of Systems Vital Signs Vitals Vital Signs Date Time Temp Pulse Resp B/P Pulse Ox O2 Delivery O2 Flow Rate FiO2 01/05/17 13:39 97 110/68 01/05/17 07:40 98.4 18 96 01/03/17 14:10 Room Air Intake and Output 01/04/17 01/04/17 01/05/17 15:00 23:00 07:00 Intake Total 50 ml 1450 ml 490 ml Balance 50 ml 1450 ml 490 ml Exam Free Text/Dictation GENERAL: Alert and oriented x3, PULMONARY: Clear to auscultation bilaterally CARDIOVASCULAR: S1, S2 present. ABDOMEN: Soft, nontender, nondistended. Bowel sounds positive. EXTREMITIES: Right lower extremity palpable femoral pulse, nonpalpable pedal pulse. Motor, sensory intact. Capillary refill 3 to 4 seconds, presence of lipodermatosclerosis and varicose veins. Left lower extremity palpable femoral pulse, faint palpable pedal pulse. Motor , sensory intact. Cap refill 3 to 4 seconds. Presence of lipodermatosclerosis , Significant scar tissues on the posterior segment of the bilateral lower legs on his calves from previous degloving injuries. Results Result Diagram: 01/05/17 0520 01/05/17 0520 STEPHEN BRICEÑO MD January 05, 2017 14:26
[2017-01-05] MEDS ORDERED: MAGNESIUM SULFATE 3 GM in SOD CHLORIDE 0.9% 100 ML IVPB ONE (15:00)
--- NOTE | 2017-01-05 16:13 | PN ---
Date/Time of Note Date/Time of Note DATE: 01/05/17 TIME: 16:10 Assessment/Plan VTE Prophylaxis VTE Prophylaxis Intervention: heparin Lines/Catheters IV Catheter Type (from [facility] [place]): Saline Lock Urinary Cath still in place: No Assessment/Plan Chief Complaint/Hosp Course Assessment and plan 1. Right foot fourth toe cellulitis with possible osteomyelitis. ID following. No plan for surgery per podiatry. follow up MRI of the foot 2. History of CHF. Continue on Lasix. 3. Essential hypertension. Continue antihypertensives and adjust as needed 4. BPH. Continue on finasteride 5. Diabetes. Continue insulin regimen. Of note A1c 5.9 Disposition plan: Continue with antibiotics. follow up with mri of the right foot. d/c when cleared by consultants Discussed plan of care with Dr. Mathews Problems: Subjective 24 Hr Interval Summary Free Text/Dictation no s/s of distress Exam/Review of Systems Vital Signs Vitals Vital Signs Date Time Temp Pulse Resp B/P Pulse Ox O2 Delivery O2 Flow Rate FiO2 01/05/17 13:39 97 110/68 01/05/17 07:40 98.4 18 96 01/03/17 14:10 Room Air Intake and Output 01/04/17 01/04/17 01/05/17 15:00 23:00 07:00 Intake Total 50 ml 1450 ml 490 ml Balance 50 ml 1450 ml 490 ml Exam Constitutional: alert, oriented Psych: nl mood/affect Head: normocephalic Neck: supple, No jvd Respiratory: clear to auscultation, normal air movement Cardiovascular: regular rate and rhythm Gastrointestinal: non-tender, soft Musculoskeletal: other (swelling noted on right foot fourth digit) Neurological: SERVICES MGR II-XII intact, nl mental status, nl speech Results Result Diagram: 01/05/17 0520 01/05/17 0520 Results 24 hrs Laboratory Tests Test 01/04/17 16:20 01/04/17 21:39 01/04/17 22:05 01/05/17 05:20 Bedside Glucose 91 123 Vancomycin Level Trough 14.2 White Blood Count 5.4 Red Blood Count 4.16 L Hemoglobin 13.1 L Hematocrit 38.8 L Mean Corpuscular Volume 93.3 Mean Corpuscular Hemoglobin 31.5 Mean Corpuscular Hemoglobin Concent 33.8 Red Cell Distribution Width 14.2 Platelet Count 228 Mean Platelet Volume 9.0 Neutrophils % 62.2 Lymphocytes % 27.4 Monocytes % 7.8 Eosinophils % 1.3 Basophils % 0.6 Nucleated Red Blood Cells % 0.0 Neutrophils # 3.4 Lymphocytes # 1.5 Monocytes # 0.4 Eosinophils # 0.1 Basophils # 0.0 Nucleated Red Blood Cells # 0.0 Sodium Level 134 L Potassium Level 5.1 Chloride Level 103 Carbon Dioxide Level 25 Anion Gap 11 Blood Urea Nitrogen 26 H Creatinine 1.10 Glucose Level 96 Calcium Level 9.7 Magnesium Level 1.4 L Test 01/05/17 07:56 01/05/17 11:57 01/05/17 13:17 Bedside Glucose 144 88 Lab Scanned Report REFERENCE LAB Medications Medications Current Medications Ondansetron HCl (Zofran Inj) 4 mg Q6H PRN IV NAUSEA AND/OR VOMITING; Start at 09:30 Acetaminophen (Tylenol Tab) 650 mg Q6H PRN PO PAIN LEVEL 1-3 OR FEVER; Start at 09:30 Morphine Sulfate (morphine) 2 mg Q4H PRN IV SEVERE PAIN LEVEL 7-10 Last administered on 01/05/17 13:47; Admin Dose 2 MG; Start 01/03/17 at 09:30 Heparin Sodium (Porcine) (Heparin (5000 Units/0.5 ml)) 5,000 unit Q12 SC Last administered on 01/05/17 08:17; Admin Dose 5,000 UNIT; Start 01/03/17 at 21:00 Amitriptyline HCl (Elavil) 100 mg QHS PO Last administered on 01/04/17 21:35; Admin Dose 100 MG; Start 01/03/17 at 21:00 Aspirin (Halfprin) 81 mg DAILY PO Last administered on 01/05/17 08:15; Admin Dose 81 MG; Start 01/04/17 at 09:00 Carvedilol (Coreg) 3.125 mg DAILY PO Last administered on 01/05/17 08:15; Admin Dose 3.125 MG; Start 01/04/17 at 09:00 Clonidine (Catapres) 0.1 mg BID PO Last administered on 01/05/17 08:15; Admin Dose 0.1 MG; Start 01/03/17 at 21:00 Finasteride (Proscar) 5 mg DAILY PO Last administered on 01/05/17 08:15; Admin Dose 5 MG; Start 01/04/17 at 09:00 Lisinopril (Zestril) 10 mg DAILY PO Last administered on 01/05/17 08:15; Admin Dose 10 MG; Start 01/04/17 at 09:00 Hydromorphone HCl 4 mg 4 mg Q4H PRN PO PAIN Last administered on 01/05/17 10: 42; Admin Dose 4 MG; Start 01/03/17 at 11:00 Vancomycin HCl/ Sodium Chloride (Vancocin/NS) 250 ml @ 83.333 mls/ hr Q12H IVPB Last administered on 01/05/17 10:42; Admin Dose 83.333 MLS/HR; Start at 23:00 Zolpidem Tartrate (Ambien) 10 mg HS PRN PO INSOMNIA Last administered on 22:52; Admin Dose 10 MG; Start 01/04/17 at 02:30 Diagnostic Test (Pha) (Accu-Chek) 1 ea 02 XX ; Start 01/05/17 at 02:00 Furosemide (Lasix) 40 mg DAILY PO Last administered on 01/05/17 08:15; Admin Dose 40 MG; Start 01/04/17 at 14:00 Miscellaneous Information 1 ea NOTE XX ; Start 01/04/17 at 14:00 Glucose (Glutose) 15 gm Q15M PRN PO DECREASED GLUCOSE; Start 01/04/17 at 14:00 Glucose (Glutose) 22.5 gm Q15M PRN PO DECREASED GLUCOSE; Start 01/04/17 at 14: 00 Dextrose (D50w Syringe) 25 ml Q15M PRN IV DECREASED GLUCOSE; Start 01/04/17 at 14:00 Dextrose (D50w Syringe) 50 ml Q15M PRN IV DECREASED GLUCOSE; Start 01/04/17 at 14:00 Glucagon (Glucagen) 1 mg Q15M PRN IM DECREASED GLUCOSE; Start 01/04/17 at 14:00 Glucose (Glutose) 15 gm Q15M PRN BUCCAL DECREASED GLUCOSE; Start 01/04/17 at 14 :00 Levofloxacin 500 mg 500 mg DAILY@06 PO Last administered on 01/05/17 05:56; Admin Dose 500 MG; Start 01/05/17 at 06:00 Magnesium Sulfate/ Sodium Chloride (Magnesium Sulfate/NS) 106 ml @ 35.333 mls/ hr ONCE ONCE IVPB Last administered on 01/05/17t 14:51; Admin Dose 35.333 MLS/ HR; Start 01/05/17 at 15:00; Stop 01/05/17 at 17:59 JAMES KWON January 05, 2017 16:13
[2017-01-05] MEDS: AMITRIPTYLINE 50 MG TAB PO SCH (22:22)
[2017-01-05] MEDS: ZOLPIDEM 5 MG TAB PO PRN (22:22)
[2017-01-05 22:29] VITALS: BP 105/61; RESP 20
[2017-01-05] MEDS: ACETAMINOPHEN 325 MG TAB PO PRN (22:29)
[2017-01-06] MEDS: ACCU-CHEK XX SCH (02:00)
[2017-01-06] MEDS: LEVOFLOXACIN 500 MG TAB PO SCH (06:41)
[2017-01-06] MEDS: HYDROmorphONE 2 MG TAB PO PRN (06:45)
[2017-01-06] MEDS: INSULIN ASPART [NOVOLOG] 3 ML PEN SC SCH ×4 (08:00→20:18)
[2017-01-06 08:30] VITALS: BP 116/67; RESP 16
[2017-01-06] MEDS: FUROSEMIDE 40 MG TAB PO SCH (08:52)
[2017-01-06] MEDS: HEPARIN 5,000 UNIT/0.5 ML VIAL SC SCH ×2 (08:52→20:15)
[2017-01-06] MEDS: FINASTERIDE 5 MG TAB PO SCH (08:52)
[2017-01-06] MEDS: ASPIRIN (EC) 81 MG TAB PO SCH (08:52)
[2017-01-06] MEDS: LISINOPRIL 10 MG TAB PO SCH (08:53)
[2017-01-06] MEDS: morphine 2 MG INJ IV PRN ×2 (08:56→16:11)
--- NOTE | 2017-01-06 10:31 | RADRPT ---
PROCEDURE: MRI OF THE RIGHT FOOT. CLINICAL INDICATION: Right fourth toe. Osteomyelitis.. TECHNIQUE: Multiple MRI images of the right foot were obtained in multiple planes utilizing multip le pulse sequences. Images were interpreted on the high-resolution PACS system. COMPARISON: X-ray dated 01/03/2017 which showed osteolytic changes of the fourth proximal interpha langeal joint and phalanges. FINDINGS: 1st ray: There is mild arthrosis of the first metatarsal phalangeal joint. There is cortical and ch ondral irregularity and minimal osteophyte formation. There is mild medial capsular ligament thicke debra. No evidence for erosive change. There is no evidence for osteochondral defect. No evidence fo r tendon tear. No evidence for sesamoiditis. No mass lesion seen. 2nd ray: No evidence for osteochondral defect. No evidence for plantar plate defect. No evidence for subluxation. No mass lesion identified. No evidence for tendon tear. Ligaments are intact. No evidence for metatarsal fracture. 3rd ray through 5th ray: There is a fracture of the fourth proximal phalangeal head and base of the middle phalanx at the PIP joint. There is soft tissue swelling. There are some bone destructive ch anges which could be callus formation in the process of healing or could represent osteomyelitis alt amy without soft tissue ulceration in the region, osteomyelitis is felt to be less likely. There is also some bone remodeling likely indicating an old ununited fracture with pseudoarthrosis develop ment. No evidence for metatarsal osteomyelitis. Other findings: There is no evidence for neuroma. No evidence for plantar fibroma. No solid mass l esion identified. IMPRESSION: 1. There is a fracture of the fourth proximal phalangeal head and base of the middle phalanx and th ere is bone remodeling and some destructive changes. 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 2. On the basis of MRI findings alone, I cannot exclude osteomyelitis, especially treated osteomyel itis.. RPTAT: XX .Tadeo Becker MD, Date Time Electronically viewed and signed by .Tadeo Becker MD, on 01/06/2017 10:31 .T/
[2017-01-06] MEDS: VANCOMYCIN 1.25 GM in SOD CHLORIDE 0.9% 250 ML IVPB SCH ×2 (11:33→22:48)
[2017-01-06] MEDS: FLUTICASONE 0.05% 16 GM NAS SPRAY NASAL SCH ×2 (11:33→20:12)
--- NOTE | 2017-01-06 17:11 | PN ---
Date/Time of Note Date/Time of Note DATE: 01/06/17 TIME: 17:09 Assessment/Plan VTE Prophylaxis VTE Prophylaxis Intervention: heparin Lines/Catheters Urinary Cath still in place: No Assessment/Plan Chief Complaint/Hosp Course Assessment and plan 1. Right foot fourth toe cellulitis with possible osteomyelitis. ID following.Of note MRI of the foot that showed fracture of the fourth proximal phalangeal head and base of the middle phalanx also seen with bone remodeling and some destructive changes. 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 No plan for surgery per podiatry at this time. Continue supportive care. Follow- up with ID for antibiotic regimen 2. History of CHF. Continue on Lasix. 3. Essential hypertension. Continue antihypertensives and adjust as needed 4. BPH. Continue on finasteride 5. Diabetes. Continue insulin regimen. Of note A1c 5.9 Disposition plan: Per podiatry, no plan for surgical intervention. Follow-up with ID for antibiotic regimen. Discharge when medically stable Discussed plan of care with Dr. Mathews Problems: Subjective 24 Hr Interval Summary Free Text/Dictation reports less pain on right foot Exam/Review of Systems Vital Signs Vitals Vital Signs Date Time Temp Pulse Resp B/P Pulse Ox O2 Delivery O2 Flow Rate FiO2 01/06/17 08:30 98.4 87 16 116/67 97 01/03/17 14:10 Room Air Intake and Output 01/05/17 01/05/17 01/06/17 15:00 23:00 07:00 Intake Total 750 ml 956 ml 730 ml Output Total 450 ml 700 ml Balance 750 ml 506 ml 30 ml Results Result Diagram: 01/05/17 0520 01/05/17 0520 Results 24 hrs Laboratory Tests Test 01/05/17 22:19 01/06/17 08:07 01/06/17 12:03 Bedside Glucose 89 108 96 Medications Medications Current Medications Ondansetron HCl (Zofran Inj) 4 mg Q6H PRN IV NAUSEA AND/OR VOMITING; Start at 09:30 Acetaminophen (Tylenol Tab) 650 mg Q6H PRN PO PAIN LEVEL 1-3 OR FEVER Last administered on 01/05/17t 22:29; Admin Dose 650 MG; Start 01/03/17 at 09:30 Morphine Sulfate (morphine) 2 mg Q4H PRN IV SEVERE PAIN LEVEL 7-10 Last administered on 01/06/17 16:11; Admin Dose 2 MG; Start 01/03/17 at 09:30 Heparin Sodium (Porcine) (Heparin (5000 Units/0.5 ml)) 5,000 unit Q12 SC Last administered on 01/06/17 08:52; Admin Dose 5,000 UNIT; Start 01/03/17 at 21:00 Amitriptyline HCl (Elavil) 100 mg QHS PO Last administered on 01/05/17 22:22; Admin Dose 100 MG; Start 01/03/17 at 21:00 Aspirin (Halfprin) 81 mg DAILY PO Last administered on 01/06/17 08:52; Admin Dose 81 MG; Start 01/04/17 at 09:00 Carvedilol (Coreg) 3.125 mg DAILY PO Last administered on 01/06/17 08:53; Admin Dose 3.125 MG; Start 01/04/17 at 09:00 Clonidine (Catapres) 0.1 mg BID PO Last administered on 01/06/17 08:53; Admin Dose 0.1 MG; Start 01/03/17 at 21:00 Finasteride (Proscar) 5 mg DAILY PO Last administered on 01/06/17 08:52; Admin Dose 5 MG; Start 01/04/17 at 09:00 Lisinopril (Zestril) 10 mg DAILY PO Last administered on 01/06/17 08:53; Admin Dose 10 MG; Start 01/04/17 at 09:00 Hydromorphone HCl 4 mg 4 mg Q4H PRN PO PAIN Last administered on 01/06/17 06: 45; Admin Dose 4 MG; Start 01/03/17 at 11:00 Vancomycin HCl/ Sodium Chloride (Vancocin/NS) 250 ml @ 83.333 mls/ hr Q12H IVPB Last administered on 01/06/17 11:33; Admin Dose 83.333 MLS/HR; Start at 23:00 Zolpidem Tartrate (Ambien) 10 mg HS PRN PO INSOMNIA Last administered on 22:22; Admin Dose 10 MG; Start 01/04/17 at 02:30 Diagnostic Test (Pha) (Accu-Chek) 1 ea 02 XX ; Start 01/05/17 at 02:00 Furosemide (Lasix) 40 mg DAILY PO Last administered on 01/06/17 08:52; Admin Dose 40 MG; Start 01/04/17 at 14:00 Miscellaneous Information 1 ea NOTE XX ; Start 01/04/17 at 14:00 Glucose (Glutose) 15 gm Q15M PRN PO DECREASED GLUCOSE; Start 01/04/17 at 14:00 Glucose (Glutose) 22.5 gm Q15M PRN PO DECREASED GLUCOSE; Start 01/04/17 at 14: 00 Dextrose (D50w Syringe) 25 ml Q15M PRN IV DECREASED GLUCOSE; Start 01/04/17 at 14:00 Dextrose (D50w Syringe) 50 ml Q15M PRN IV DECREASED GLUCOSE; Start 01/04/17 at 14:00 Glucagon (Glucagen) 1 mg Q15M PRN IM DECREASED GLUCOSE; Start 01/04/17 at 14:00 Glucose (Glutose) 15 gm Q15M PRN BUCCAL DECREASED GLUCOSE; Start 01/04/17 at 14 :00 Levofloxacin (Levaquin) 500 mg DAILY@06 PO Last administered on 01/06/17 06:41 ; Admin Dose 500 MG; Start 01/05/17 at 06:00 Fluticasone Propionate (Flonase 0.05% Nasal) 1 spray BID NASAL Last administered on 01/06/17 11:33; Admin Dose 1 SPRAY; Start 01/06/17 at 10:00 JAMES KWON January 06, 2017 17:11
--- NOTE | 2017-01-06 18:26 | CONS ---
Date/Time of Note Date/Time of Note DATE: 01/06/17 TIME: 18:24 Assessment/Plan Assessment/Plan Chief Complaint/Hosp Course ID PROGRESS NOTE ABX DAY # Vanco IV+ Levaquin 24H INTERVAL SUMMARY * A/A/O, awa, polijesse, expresses gratitude for provider and nursing care * No fevers, no complaints * (+)MRSA Nares screen * MRI 01/05/17 FOOT REVIEWED: 1. There is a fracture of the fourth proximal phalangeal head and base of the middle phalanx and there is bone remodeling and some destructive changes. 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 On the basis of MRI findings alone, I cannot exclude osteomyelitis, especially treated osteomyelitis.. PHYSICAL EXAMINATION: GENERAL: A/A/O, VSS HEENT: Unremarkable NECK: Trach-> midline CHEST: Equal chest rise bilaterally, without dyspnea on observation HEART: Pulse RRR ABDOMEN: Soft EXTREMITIES: Warm SKIN: Warm, dry ID ASSESSMENT: 56yo M admitted with: 1. Right foot cellulitis with swelling of the right fourth digit, rule out osteomyelitis. * MRI: 1. There is a fracture of the fourth proximal phalangeal head and base of the middle phalanx and there is bone remodeling and some destructive changes. 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 On the basis of MRI findings alone, I cannot exclude osteomyelitis, especially treated osteomyelitis.. 2. Diabetes T2 w/ diabetic peripheral neuropathy 3. Hypertension. (+)MRSA Nares INVASIVES: *PIV ABX ALLERGIES: NKDA CURRENT ABX: # Vanco IV+ Levaquin ID RECOMMENDATIONS: 1. Continue Vanco IV + Levaquin + Bactroban to bilateral nares * ->continue abx over the weekend, if untreated Osteomyelitis he will need 6 weeks. Problems: Consultation Date/Type/Reason Admit Date/Time January 03, 2017 at 03:58 Initial Consult Date 01/03/17 Type of Consultation: id Exam/Review of Systems Vital Signs Vitals Vital Signs Date Time Temp Pulse Resp B/P Pulse Ox O2 Delivery O2 Flow Rate FiO2 01/06/17 08:30 98.4 87 16 116/67 97 01/03/17 14:10 Room Air Intake and Output 501/05/17 01/06/17 15:00 23:00 07:00 Intake Total 750 ml 956 ml 730 ml Output Total 450 ml 700 ml Balance 750 ml 506 ml 30 ml Results Result Diagram: 01/05/17 0520 01/05/17 0520 Results 24 hrs Laboratory Tests Test 01/05/17 22:19 01/06/17 08:07 01/06/17 12:03 01/06/17 17:19 Bedside Glucose 89 108 96 101 Medications Medications Current Medications Ondansetron HCl (Zofran Inj) 4 mg Q6H PRN IV NAUSEA AND/OR VOMITING; Start at 09:30 Acetaminophen (Tylenol Tab) 650 mg Q6H PRN PO PAIN LEVEL 1-3 OR FEVER Last administered on 01/05/17 22:29; Admin Dose 650 MG; Start 01/03/17 at 09:30 Morphine Sulfate (morphine) 2 mg Q4H PRN IV SEVERE PAIN LEVEL 7-10 Last administered on 01/06/17 16:11; Admin Dose 2 MG; Start 01/03/17 at 09:30 Heparin Sodium (Porcine) (Heparin (5000 Units/0.5 ml)) 5,000 unit Q12 SC Last administered on 01/06/17 08:52; Admin Dose 5,000 UNIT; Start 01/03/17 at 21:00 Amitriptyline HCl (Elavil) 100 mg QHS PO Last administered on 01/05/17 22:22; Admin Dose 100 MG; Start 01/03/17 at 21:00 Aspirin (Halfprin) 81 mg DAILY PO Last administered on 01/06/17 08:52; Admin Dose 81 MG; Start 01/04/17 at 09:00 Carvedilol (Coreg) 3.125 mg DAILY PO Last administered on 01/06/17 08:53; Admin Dose 3.125 MG; Start 01/04/17 at 09:00 Clonidine (Catapres) 0.1 mg BID PO Last administered on 01/06/17 08:53; Admin Dose 0.1 MG; Start 01/03/17 at 21:00 Finasteride (Proscar) 5 mg DAILY PO Last administered on 01/06/17 08:52; Admin Dose 5 MG; Start 01/04/17 at 09:00 Lisinopril (Zestril) 10 mg DAILY PO Last administered on 01/06/17 08:53; Admin Dose 10 MG; Start 01/04/17 at 09:00 Hydromorphone HCl 4 mg 4 mg Q4H PRN PO PAIN Last administered on 01/06/17 06: 45; Admin Dose 4 MG; Start 01/03/17 at 11:00 Vancomycin HCl/ Sodium Chloride (Vancocin/NS) 250 ml @ 83.333 mls/ hr Q12H IVPB Last administered on 01/06/17 11:33; Admin Dose 83.333 MLS/HR; Start at 23:00 Zolpidem Tartrate (Ambien) 10 mg HS PRN PO INSOMNIA Last administered on 22:22; Admin Dose 10 MG; Start 01/04/17 at 02:30 Diagnostic Test (Pha) (Accu-Chek) 1 ea 02 XX ; Start 01/05/17 at 02:00 Furosemide (Lasix) 40 mg DAILY PO Last administered on 01/06/17 08:52; Admin Dose 40 MG; Start 01/04/17 at 14:00 Miscellaneous Information 1 ea NOTE XX ; Start 01/04/17 at 14:00 Glucose (Glutose) 15 gm Q15M PRN PO DECREASED GLUCOSE; Start 01/04/17 at 14:00 Glucose (Glutose) 22.5 gm Q15M PRN PO DECREASED GLUCOSE; Start 01/04/17 at 14: 00 Dextrose (D50w Syringe) 25 ml Q15M PRN IV DECREASED GLUCOSE; Start 01/04/17 at 14:00 Dextrose (D50w Syringe) 50 ml Q15M PRN IV DECREASED GLUCOSE; Start 01/04/17 at 14:00 Glucagon (Glucagen) 1 mg Q15M PRN IM DECREASED GLUCOSE; Start 01/04/17 at 14:00 Glucose (Glutose) 15 gm Q15M PRN BUCCAL DECREASED GLUCOSE; Start 01/04/17 at 14 :00 Levofloxacin (Levaquin) 500 mg DAILY@06 PO Last administered on 01/06/17 06:41 ; Admin Dose 500 MG; Start 01/05/17 at 06:00 Fluticasone Propionate (Flonase 0.05% Nasal) 1 spray BID NASAL Last administered on 01/06/17 11:33; Admin Dose 1 SPRAY; Start 01/06/17 at 10:00 AREN WARE NP January 06, 2017 18:26
[2017-01-06] MEDS: ACETAMINOPHEN 325 MG TAB PO PRN (20:12)
[2017-01-06] MEDS: AMITRIPTYLINE 50 MG TAB PO SCH (20:13)
[2017-01-06] MEDS: ZOLPIDEM 5 MG TAB PO PRN (20:27)
[2017-01-06 20:54] VITALS: BP 148/72; RESP 20
[2017-01-06] MEDS: MUPIROCIN 2% 22 GM OINT TOP SCH (22:48)
[2017-01-07] MEDS: ACCU-CHEK XX SCH (02:00)
[2017-01-07] MEDS: LEVOFLOXACIN 500 MG TAB PO SCH (05:23)
[2017-01-07] MEDS: HYDROmorphONE 2 MG TAB PO PRN ×4 (05:24→17:53)
[2017-01-07] MEDS: INSULIN ASPART [NOVOLOG] 3 ML PEN SC SCH ×4 (07:57→20:29)
[2017-01-07 08:02] VITALS: BP 107/72; RESP 18
[2017-01-07] MEDS: MUPIROCIN 2% 22 GM OINT TOP SCH ×2 (08:32→20:15)
[2017-01-07] MEDS: FLUTICASONE 0.05% 16 GM NAS SPRAY NASAL SCH ×2 (08:32→20:14)
[2017-01-07] MEDS: FINASTERIDE 5 MG TAB PO SCH (08:33)
[2017-01-07] MEDS: FUROSEMIDE 40 MG TAB PO SCH (08:33)
[2017-01-07] MEDS: ASPIRIN (EC) 81 MG TAB PO SCH (08:33)
[2017-01-07] MEDS: HEPARIN 5,000 UNIT/0.5 ML VIAL SC SCH ×2 (08:34→20:17)
[2017-01-07] MEDS: LISINOPRIL 10 MG TAB PO SCH (08:34)
--- NOTE | 2017-01-07 10:30 | PN ---
Date/Time of Note Date/Time of Note DATE: 01/07/17 TIME: 10:28 Assessment/Plan VTE Prophylaxis VTE Prophylaxis Intervention: heparin Lines/Catheters Urinary Cath still in place: No Assessment/Plan Chief Complaint/Hosp Course Assessment and plan 1. Right foot fourth toe cellulitis with possible osteomyelitis. ID following.Of note MRI of the foot that showed fracture of the fourth proximal phalangeal head and base of the middle phalanx also seen with bone remodeling and some destructive changes. 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 No plan for surgery per podiatry at this time. Continue supportive care. Follow- up with ID for antibiotic regimen appears to be slowly improving 2. History of CHF. Continue on Lasix. Stable 3. Essential hypertension. Continue antihypertensives and adjust as needed. Stable 4. BPH. Continue on finasteride 5. Diabetes. Continue insulin regimen. Of note A1c 5.9 Disposition plan: We will follow-up with podiatry concerning conclusive findings from MRI of the right foot for the patient. Antibiotic regimen per findings (discussed with ID). Discussed plan of care with Dr. Mathews Problems: Subjective 24 Hr Interval Summary Free Text/Dictation No apparent distress seen at this time. Exam/Review of Systems Vital Signs Vitals Vital Signs Date Time Temp Pulse Resp B/P Pulse Ox O2 Delivery O2 Flow Rate FiO2 01/07/17 08:02 98.6 78 18 107/72 98 01/03/17 14:10 Room Air Intake and Output 01/06/17 01/06/17 01/07/17 15:00 23:00 07:00 Intake Total 1370 ml 1170 ml Output Total 1000 ml 700 ml Balance 370 ml 470 ml Exam Constitutional: alert, oriented Psych: nl mood/affect Head: normocephalic Neck: supple, No jvd Respiratory: clear to auscultation, normal air movement Cardiovascular: regular rate and rhythm Gastrointestinal: non-tender, soft Musculoskeletal: other (swelling noted on right foot fourth digit) unchanged Neurological: DANDY OPERATOR II-XII intact, nl mental status, nl speech Results Result Diagram: 01/05/17 0520 01/05/17 0520 Results 24 hrs Laboratory Tests Test 01/06/17 12:03 01/06/17 17:19 01/06/17 20:17 01/07/17 07:56 Bedside Glucose 96 101 88 104 Medications Medications Current Medications Ondansetron HCl (Zofran Inj) 4 mg Q6H PRN IV NAUSEA AND/OR VOMITING; Start at 09:30 Acetaminophen (Tylenol Tab) 650 mg Q6H PRN PO PAIN LEVEL 1-3 OR FEVER Last administered on 01/06/17 20:12; Admin Dose 650 MG; Start 01/03/17 at 09:30 Morphine Sulfate (morphine) 2 mg Q4H PRN IV SEVERE PAIN LEVEL 7-10 Last administered on 01/06/17 16:11; Admin Dose 2 MG; Start 01/03/17 at 09:30 Heparin Sodium (Porcine) (Heparin (5000 Units/0.5 ml)) 5,000 unit Q12 SC Last administered on 01/07/17 08:34; Admin Dose 5,000 UNIT; Start 01/03/17 at 21:00 Amitriptyline HCl (Elavil) 100 mg QHS PO Last administered on 01/06/17 20:13; Admin Dose 100 MG; Start 01/03/17 at 21:00 Aspirin (Halfprin) 81 mg DAILY PO Last administered on 01/07/17 08:33; Admin Dose 81 MG; Start 01/04/17 at 09:00 Carvedilol (Coreg) 3.125 mg DAILY PO Last administered on 01/06/17 08:53; Admin Dose 3.125 MG; Start 01/04/17 at 09:00 Clonidine (Catapres) 0.1 mg BID PO Last administered on 01/06/17 20:13; Admin Dose 0.1 MG; Start 01/03/17 at 21:00 Finasteride (Proscar) 5 mg DAILY PO Last administered on 01/07/17 08:33; Admin Dose 5 MG; Start 01/04/17 at 09:00 Lisinopril (Zestril) 10 mg DAILY PO Last administered on 01/06/17 08:53; Admin Dose 10 MG; Start 01/04/17 at 09:00 Hydromorphone HCl 4 mg 4 mg Q4H PRN PO PAIN Last administered on 01/07/17 09: 44; Admin Dose 4 MG; Start 01/03/17 at 11:00 Vancomycin HCl/ Sodium Chloride (Vancocin/NS) 250 ml @ 83.333 mls/ hr Q12H IVPB Last administered on 01/06/17 22:48; Admin Dose 83.333 MLS/HR; Start at 23:00 Zolpidem Tartrate (Ambien) 10 mg HS PRN PO INSOMNIA Last administered on 20:27; Admin Dose 10 MG; Start 01/04/17 at 02:30 Diagnostic Test (Pha) (Accu-Chek) 1 ea 02 XX ; Start 01/05/17 at 02:00 Furosemide (Lasix) 40 mg DAILY PO Last administered on 01/07/17 08:33; Admin Dose 40 MG; Start 01/04/17 at 14:00 Miscellaneous Information 1 ea NOTE XX ; Start 01/04/17 at 14:00 Glucose (Glutose) 15 gm Q15M PRN PO DECREASED GLUCOSE; Start 01/04/17 at 14:00 Glucose (Glutose) 22.5 gm Q15M PRN PO DECREASED GLUCOSE; Start 01/04/17 at 14: 00 Dextrose (D50w Syringe) 25 ml Q15M PRN IV DECREASED GLUCOSE; Start 01/04/17 at 14:00 Dextrose (D50w Syringe) 50 ml Q15M PRN IV DECREASED GLUCOSE; Start 01/04/17 at 14:00 Glucagon (Glucagen) 1 mg Q15M PRN IM DECREASED GLUCOSE; Start 01/04/17 at 14:00 Glucose (Glutose) 15 gm Q15M PRN BUCCAL DECREASED GLUCOSE; Start 01/04/17 at 14 :00 Levofloxacin (Levaquin) 500 mg DAILY@06 PO Last administered on 01/07/17 05:23 ; Admin Dose 500 MG; Start 01/05/17 at 06:00 Fluticasone Propionate (Flonase 0.05% Nasal) 1 spray BID NASAL Last administered on 01/07/17 08:32; Admin Dose 1 SPRAY; Start 01/06/17 at 10:00 Mupirocin (Bactroban) 1 applic BID TOP Last administered on 01/07/17 08:32; Admin Dose 1 APPLIC; Start 01/06/17 at 21:00 JAMES KWON January 07, 2017 10:30
[2017-01-07] MEDS: VANCOMYCIN 1.25 GM in SOD CHLORIDE 0.9% 250 ML IVPB SCH ×2 (11:11→23:15)
--- NOTE | 2017-01-07 14:27 | CONS ---
Date/Time of Note Date/Time of Note DATE: 01/07/17 TIME: 14:26 Assessment/Plan Assessment/Plan Chief Complaint/Hosp Course ID PROGRESS NOTE ABX DAY # Vanco IV+ Levaquin 24H INTERVAL SUMMARY * A/A/O, anastasia billings, expresses gratitude for provider and nursing care * No fevers, no complaints * (+)MRSA Nares screen * MRI 01/05/17 FOOT REVIEWED: 1. There is a fracture of the fourth proximal phalangeal head and base of the middle phalanx and there is bone remodeling and some destructive changes. 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 On the basis of MRI findings alone, I cannot exclude osteomyelitis, especially treated osteomyelitis.. PHYSICAL EXAMINATION: GENERAL: A/A/O, VSS HEENT: Unremarkable NECK: Trach-> midline CHEST: Equal chest rise bilaterally, without dyspnea on observation HEART: Pulse RRR ABDOMEN: Soft EXTREMITIES: Warm SKIN: Warm, dry ID ASSESSMENT: 56yo M admitted with: 1. Right foot cellulitis with swelling of the right fourth digit, rule out osteomyelitis. * MRI: 1. There is a fracture of the fourth proximal phalangeal head and base of the middle phalanx and there is bone remodeling and some destructive changes. 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 On the basis of MRI findings alone, I cannot exclude osteomyelitis, especially treated osteomyelitis.. 2. Diabetes T2 w/ diabetic peripheral neuropathy 3. Hypertension. (+)MRSA Nares INVASIVES: *PIV ABX ALLERGIES: NKDA CURRENT ABX: # Vanco IV+ Levaquin ID RECOMMENDATIONS: 1. Continue Vanco IV + Levaquin + Bactroban to bilateral nares * ->Continue current ABX for concern worsening soft tissue/acute on chronic Osteomyelitis he will need 6 weeks due to concern (+)MRAS Nares carrier. Problems: Consultation Date/Type/Reason Admit Date/Time January 03, 2017 at 03:58 Initial Consult Date 01/03/17 Type of Consultation: id Exam/Review of Systems Vital Signs Vitals Vital Signs Date Time Temp Pulse Resp B/P Pulse Ox O2 Delivery O2 Flow Rate FiO2 01/07/17 08:02 98.6 78 18 107/72 98 01/03/17 14:10 Room Air Intake and Output 01/06/17 01/06/17 01/07/17 15:00 23:00 07:00 Intake Total 1370 ml 1170 ml Output Total 1000 ml 700 ml Balance 370 ml 470 ml Results Result Diagram: 01/05/17 0520 01/05/17 0520 Results 24 hrs Laboratory Tests Test 01/06/17 17:19 01/06/17 20:17 01/07/17 07:56 01/07/17 12:05 Bedside Glucose 101 88 104 73 Medications Medications Current Medications Ondansetron HCl (Zofran Inj) 4 mg Q6H PRN IV NAUSEA AND/OR VOMITING; Start at 09:30 Acetaminophen (Tylenol Tab) 650 mg Q6H PRN PO PAIN LEVEL 1-3 OR FEVER Last administered on 01/06/17 20:12; Admin Dose 650 MG; Start 01/03/17 at 09:30 Morphine Sulfate (morphine) 2 mg Q4H PRN IV SEVERE PAIN LEVEL 7-10 Last administered on 01/06/17 16:11; Admin Dose 2 MG; Start 01/03/17 at 09:30 Heparin Sodium (Porcine) (Heparin (5000 Units/0.5 ml)) 5,000 unit Q12 SC Last administered on 01/07/17 08:34; Admin Dose 5,000 UNIT; Start 01/03/17 at 21:00 Amitriptyline HCl (Elavil) 100 mg QHS PO Last administered on 01/06/17 20:13; Admin Dose 100 MG; Start 01/03/17 at 21:00 Aspirin (Halfprin) 81 mg DAILY PO Last administered on 01/07/17 08:33; Admin Dose 81 MG; Start 01/04/17 at 09:00 Carvedilol (Coreg) 3.125 mg DAILY PO Last administered on 01/06/17 08:53; Admin Dose 3.125 MG; Start 01/04/17 at 09:00 Clonidine (Catapres) 0.1 mg BID PO Last administered on 01/06/17 20:13; Admin Dose 0.1 MG; Start 01/03/17 at 21:00 Finasteride (Proscar) 5 mg DAILY PO Last administered on 01/07/17 08:33; Admin Dose 5 MG; Start 01/04/17 at 09:00 Lisinopril (Zestril) 10 mg DAILY PO Last administered on 01/06/17 08:53; Admin Dose 10 MG; Start 01/04/17 at 09:00 Hydromorphone HCl 4 mg 4 mg Q4H PRN PO PAIN Last administered on 01/07/17 13: 47; Admin Dose 4 MG; Start 01/03/17 at 11:00 Vancomycin HCl/ Sodium Chloride (Vancocin/NS) 250 ml @ 83.333 mls/ hr Q12H IVPB Last administered on 01/07/17 11:11; Admin Dose 83.333 MLS/HR; Start at 23:00 Zolpidem Tartrate (Ambien) 10 mg HS PRN PO INSOMNIA Last administered on 20:27; Admin Dose 10 MG; Start 01/04/17 at 02:30 Diagnostic Test (Pha) (Accu-Chek) 1 ea 02 XX ; Start 01/05/17 at 02:00 Furosemide (Lasix) 40 mg DAILY PO Last administered on 01/07/17 08:33; Admin Dose 40 MG; Start 01/04/17 at 14:00 Miscellaneous Information 1 ea NOTE XX ; Start 01/04/17 at 14:00 Glucose (Glutose) 15 gm Q15M PRN PO DECREASED GLUCOSE; Start 01/04/17 at 14:00 Glucose (Glutose) 22.5 gm Q15M PRN PO DECREASED GLUCOSE; Start 01/04/17 at 14: 00 Dextrose (D50w Syringe) 25 ml Q15M PRN IV DECREASED GLUCOSE; Start 01/04/17 at 14:00 Dextrose (D50w Syringe) 50 ml Q15M PRN IV DECREASED GLUCOSE; Start 01/04/17 at 14:00 Glucagon (Glucagen) 1 mg Q15M PRN IM DECREASED GLUCOSE; Start 01/04/17 at 14:00 Glucose (Glutose) 15 gm Q15M PRN BUCCAL DECREASED GLUCOSE; Start 01/04/17 at 14 :00 Levofloxacin (Levaquin) 500 mg DAILY@06 PO Last administered on 01/07/17 05:23 ; Admin Dose 500 MG; Start 01/05/17 at 06:00 Fluticasone Propionate (Flonase 0.05% Nasal) 1 spray BID NASAL Last administered on 01/07/17 08:32; Admin Dose 1 SPRAY; Start 01/06/17 at 10:00 Mupirocin (Bactroban) 1 applic BID TOP Last administered on 01/07/17 08:32; Admin Dose 1 APPLIC; Start 01/06/17 at 21:00 Miscellaneous Information (*Rx Drug Level Order Reminder*) VANCOMYCIN TROUGH AT 2200 ONCE ONCE XX ; Start 01/07/17 at 22:00; Stop 01/07/17 at 22:01 AREN WARE NP January 07, 2017 14:27
[2017-01-07] MEDS: morphine 2 MG INJ IV PRN (15:14)
[2017-01-07 20:08] VITALS: BP 118/65; RESP 18
[2017-01-07] MEDS: AMITRIPTYLINE 50 MG TAB PO SCH (20:15)
[2017-01-07] MEDS: ZOLPIDEM 5 MG TAB PO PRN (20:25)
[2017-01-08] MEDS: ACCU-CHEK XX SCH (02:00)
[2017-01-08] MEDS: LEVOFLOXACIN 500 MG TAB PO SCH (05:36)
[2017-01-08] MEDS: morphine 2 MG INJ IV PRN ×3 (05:43→18:41)
[2017-01-08 07:05] LABS: CREATININE 1.12 mg/dl (0.61-1.24)
[2017-01-08 07:44] VITALS: BP 119/78; RESP 18
[2017-01-08] MEDS: INSULIN ASPART [NOVOLOG] 3 ML PEN SC SCH ×4 (08:00→20:54)
[2017-01-08] MEDS: ASPIRIN (EC) 81 MG TAB PO SCH (09:11)
[2017-01-08] MEDS: MUPIROCIN 2% 22 GM OINT TOP SCH ×2 (09:11→20:41)
[2017-01-08] MEDS: FLUTICASONE 0.05% 16 GM NAS SPRAY NASAL SCH ×2 (09:11→20:40)
[2017-01-08] MEDS: CARISOPRODOL 350 MG TAB PO SCH ×2 (09:13→20:41)
[2017-01-08] MEDS: FUROSEMIDE 40 MG TAB PO SCH (09:13)
[2017-01-08] MEDS: FINASTERIDE 5 MG TAB PO SCH (09:14)
[2017-01-08] MEDS: LISINOPRIL 10 MG TAB PO SCH (09:14)
[2017-01-08] MEDS: HEPARIN 5,000 UNIT/0.5 ML VIAL SC SCH ×2 (09:15→20:42)
[2017-01-08] MEDS ORDERED: VANCOMYCIN 1 GM in NS 250 ML IVPB SCH (11:00)
[2017-01-08] MEDS: HYDROmorphONE 2 MG TAB PO PRN ×2 (14:56→21:19)
--- NOTE | 2017-01-08 16:55 | CONS ---
Date/Time of Note Date/Time of Note DATE: 01/08/17 TIME: 16:35 Assessment/Plan Assessment/Plan Chief Complaint/Hosp Course ID PROGRESS NOTE ABX DAY # Vanco IV+ Levaquin # 6 24H INTERVAL SUMMARY * DC PLANNING --PT IS HOMELESS w/Hx of IVDU -- PICC LINE IV ABX not recommended outpatient * No fevers, no complaints * (+)MRSA Nares screen PHYSICAL EXAMINATION: GENERAL: A/A/O, VSS HEENT: Unremarkable NECK: Trach-> midline CHEST: Equal chest rise bilaterally, without dyspnea on observation HEART: Pulse RRR ABDOMEN: Soft EXTREMITIES: Warm SKIN: Warm, dry ID ASSESSMENT: 56yo M admitted with: 1. Right foot cellulitis with swelling of the right fourth digit, rule out osteomyelitis. * MRI: 1. There is a fracture of the fourth proximal phalangeal head and base of the middle phalanx and there is bone remodeling and some destructive changes. 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 On the basis of MRI findings alone, I cannot exclude osteomyelitis, especially treated osteomyelitis.. 2. Diabetes T2 w/ diabetic peripheral neuropathy 3. Hypertension. (+)MRSA Nares INVASIVES: *PIV ABX ALLERGIES: NKDA CURRENT ABX: # Vanco IV # 6/ 56 days + Levaquin Days ID RECOMMENDATIONS: 1. DC PLANNING=> Pt considered high risk self-harm if sent out w/PICC Line, foot infection has improved. Pt with (+)MRSA Nares screen 2. FINAL DC ABX RECOMMENDATIONS -- Literature review consulted below => Patient may DC Home on PO ABX for concern Osteomyelitis when cleared by Primary * 1. Bactrim DS 1 tab po BID w/full glass H20 to complete 56 day course (today is day # 6/56 days) * Rx 8 WEEKS for concern possible (+)MRSA Osteomyelitis. * DC ARB and Rx alternative anti-htn med while on Bactrim ABX Tx outpatient. * Take this medication w/full glass H20 * Follow up with outpatient provider and renal lab monitoring * 2. Cipro 500mg po BID to complete 42 day course = today day # 6/ 42 days * 3. Follow up with outpatient primary care vs podiatry upon discharge. LITERATURE REVIEW [email or web address] Khalida Chawla Oral Antibiotics for the Treatment of Adult Osteomyelitis: A Tough Pill to Swallow Khalida Chawla, Pharm.D. PGY2 Internal Medicine [employer] [place], [place] May 08, 2014 Current recommendations Khalida Chawla TREATMENT Antibiotics * a. Traditional regimens i. 4-8 weeks of parenteral antibiotics subsequent course of oral antibiotics1,8,16 ii. Rationale is that it takes 3-4 weeks for bone to [id number] iii. Long courses of parenteral antibiotics established in [facility] case series from the [id number] iv. Osteomyelitis cure rate with parenteral antibiotics 67-90% in randomized controlled I. National guidelines a. No current guidelines * b. Infectious Disease Society of [place] (IDSA) vertebral osteomyelitis guidelines in development II. Methicillin-resistant S. aureus (MRSA) [id number] * a. Debridement and drainage is a mainstay of therapy (A-II) * b. Optimal route not clearly established should be decided on individual basis i. Vancomycin and daptomycin are recommended parenteral antibiotics (B-II ) 1. Vancomycin remains primary treatment, despite high failure rates * ii. Trimethoprim/sulfamethoxazole (TMP/SMX), linezolid, and clindamycin are recommended oral antibiotics (BII-BIII) * iii. Parenteral therapy may offer advantage of better compliance, higher serum level for some drugs, and greater historical experience * iv. Optimal duration of therapy is unknown recommend a minimum of 8 weeks (A- II) Khalida Chawla III. Diabetic Foot Infection Guidelines7 * a. Diagnosis i. Suspect osteomyelitis when patients with deep ulcers do not heal after 6 weeks of therapy * ii. Bone cultures preferred 1. <50% of bone cultures and soft tissue swabs correspond 2. Most common organisms are Staphylococcus aureus and Staphylococcus epidermis 3. Most common gram-negative bacilli are E. coli, K. pneumonia, and Proteus spp * b. Treatment i. Lack of data suggesting any specific antibiotic, route or duration of therapy is superior * ii. Initial parenteral antibiotics may be beneficial, but predominantly oral antibiotic therapy with high bioavailability is probably adequate II. Ciprofloxacin summary * a. Several studies from [id number] provide positive evidence for the use of oral ciprofloxacin for the treatment of gram negative osteomyelitis i. Largest study showing positive results was randomized, included debridement, and obtained bone biopsy [id number] * ii. All of the studies were small sample sizes * iii. Cure percentages ranged from 40-100% (40% outlier) 1. Study with the lowest cure rate was primary treating S. [id number] * iv. Several of the studies showed high rates of failure with P. aeruginosa, however, in comparator study, rate of failure were similar between IV and PO * b. Important to consider collateral damage of increased resistance with use of [id number] * c. Favorable pharmacokinetic jvjlfqa15,20 i. Oral bioavailability: 60-80% * ii. Bone penetration: 37-60% * d. Ciprofloxacin is an efficacious agent in the treatment of gram-negative acute and chronic osteomyelitis IV. TMP-SMX Summary * a. TMP-SMX is a potentially useful option in the treatment of chronic, gram- positive osteomyelitis i. Cure percentages ranged from 45-89.6% 1. The study with the lowest cure rate by Uday et al. included patients with only P. aeruginosa [id number] * ii. Treatment with TMP-SMX was generally well-tolerated * iii. All studies had long follow-up times which increases the strength of this recommendation * b. Favorable pharmacokinetic quaelzl10,20 i. Oral bioavailability: 90-100% * ii. Bone penetration: 50% TMP, 15% SMX * c. The MRSA Guidelines give TMP-SMX with rifampin combination a B-II [id number] ```````````````````````````````````````````````````````````````````````````````` ```````````````````````````````````````````````````````````````````````````````` `````````````````````````````````````````````````````````````````` Problems: Consultation Date/Type/Reason Admit Date/Time January 03, 2017 at 03:58 Initial Consult Date 01/03/17 Type of Consultation: id Exam/Review of Systems Vital Signs Vitals Vital Signs Date Time Temp Pulse Resp B/P Pulse Ox O2 Delivery O2 Flow Rate FiO2 01/08/17 07:44 98.1 69 18 119/78 97 Intake and Output 01/07/17 01/07/17 01/08/17 14:59 22:59 06:59 Intake Total 250 ml 1680 ml 900 ml Output Total 1000 ml 1400 ml Balance 250 ml 680 ml -500 ml Results Result Diagram: 01/05/17 0520 01/08/17 0528 Results 24 hrs Laboratory Tests Test 01/07/17 17:07 01/07/17 20:27 01/07/17 22:10 01/08/17 05:28 Bedside Glucose 95 120 Vancomycin Level Trough 17.3 Blood Urea Nitrogen 28 H Creatinine 1.12 Test 01/08/17 07:59 01/08/17 11:20 Bedside Glucose 93 112 Medications Medications Current Medications Ondansetron HCl (Zofran Inj) 4 mg Q6H PRN IV NAUSEA AND/OR VOMITING; Start at 09:30 Acetaminophen (Tylenol Tab) 650 mg Q6H PRN PO PAIN LEVEL 1-3 OR FEVER Last administered on 01/06/17 20:12; Admin Dose 650 MG; Start 01/03/17 at 09:30 Morphine Sulfate (morphine) 2 mg Q4H PRN IV SEVERE PAIN LEVEL 7-10 Last administered on 01/08/17 09:53; Admin Dose 2 MG; Start 01/03/17 at 09:30 Heparin Sodium (Porcine) (Heparin (5000 Units/0.5 ml)) 5,000 unit Q12 SC Last administered on 01/08/17 09:15; Admin Dose 5,000 UNIT; Start 01/03/17 at 21:00 Amitriptyline HCl (Elavil) 100 mg QHS PO Last administered on 01/07/17 20:15; Admin Dose 100 MG; Start 01/03/17 at 21:00 Aspirin (Halfprin) 81 mg DAILY PO Last administered on 01/08/17 09:11; Admin Dose 81 MG; Start 01/04/17 at 09:00 Carvedilol (Coreg) 3.125 mg DAILY PO Last administered on 01/08/17 09:13; Admin Dose 3.125 MG; Start 01/04/17 at 09:00 Clonidine (Catapres) 0.1 mg BID PO Last administered on 01/07/17 20:16; Admin Dose 0.1 MG; Start 01/03/17 at 21:00 Finasteride (Proscar) 5 mg DAILY PO Last administered on 01/08/17 09:14; Admin Dose 5 MG; Start 01/04/17 at 09:00 Lisinopril (Zestril) 10 mg DAILY PO Last administered on 01/08/17 09:14; Admin Dose 10 MG; Start 01/04/17 at 09:00 Hydromorphone HCl (Dilaudid) 4 mg Q4H PRN PO PAIN Last administered on 14:56; Admin Dose 4 MG; Start 01/03/17 at 11:00 Zolpidem Tartrate (Ambien) 10 mg HS PRN PO INSOMNIA Last administered on 20:25; Admin Dose 10 MG; Start 01/04/17 at 02:30 Diagnostic Test (Pha) (Accu-Chek) 1 ea 02 XX ; Start 01/05/17 at 02:00 Furosemide (Lasix) 40 mg DAILY PO Last administered on 01/08/17 09:13; Admin Dose 40 MG; Start 01/04/17 at 14:00 Miscellaneous Information 1 ea NOTE XX ; Start 01/04/17 at 14:00 Glucose (Glutose) 15 gm Q15M PRN PO DECREASED GLUCOSE; Start 01/04/17 at 14:00 Glucose (Glutose) 22.5 gm Q15M PRN PO DECREASED GLUCOSE; Start 01/04/17 at 14: 00 Dextrose (D50w Syringe) 25 ml Q15M PRN IV DECREASED GLUCOSE; Start 01/04/17 at 14:00 Dextrose (D50w Syringe) 50 ml Q15M PRN IV DECREASED GLUCOSE; Start 01/04/17 at 14:00 Glucagon (Glucagen) 1 mg Q15M PRN IM DECREASED GLUCOSE; Start 01/04/17 at 14:00 Glucose (Glutose) 15 gm Q15M PRN BUCCAL DECREASED GLUCOSE; Start 01/04/17 at 14 :00 Levofloxacin (Levaquin) 500 mg DAILY@06 PO Last administered on 01/08/17 05:36 ; Admin Dose 500 MG; Start 01/05/17 at 06:00 Fluticasone Propionate (Flonase 0.05% Nasal) 1 spray BID NASAL Last administered on 01/08/17 09:11; Admin Dose 1 SPRAY; Start 01/06/17 at 10:00 Mupirocin (Bactroban) 1 applic BID TOP Last administered on 01/08/17 09:11; Admin Dose 1 APPLIC; Start 01/06/17 at 21:00 Carisoprodol 350 mg 350 mg BID PO Last administered on 01/08/17 09:13; Admin Dose 350 MG; Start 01/08/17 at 09:00 Vancomycin HCl (Vancocin) 250 ml @ 125 mls/hr Q12H IVPB Last administered on 11:12; Admin Dose 125 MLS/HR; Start 01/08/17 at 11:00 Famotidine (Pepcid) 20 mg BID PO ; Start 01/08/17 at 21:00 AREN WARE NP January 08, 2017 16:47
[2017-01-08] MEDS: ACETAMINOPHEN 325 MG TAB PO PRN (17:01)
[2017-01-08] MEDS: CIPROFLOXACIN 500 MG TAB PO SCH (18:36)
[2017-01-08 20:23] VITALS: BP 131/82; RESP 20
[2017-01-08] MEDS: FAMOTIDINE 20 MG TAB PO SCH (20:40)
[2017-01-08] MEDS: TRIMETHOPRIM/SULFAMETHOX (DS) TAB PO SCH (20:41)
[2017-01-08] MEDS: AMITRIPTYLINE 50 MG TAB PO SCH (20:47)
[2017-01-09] MEDS: ACCU-CHEK XX SCH (02:00)
[2017-01-09] MEDS: HYDROmorphONE 2 MG TAB PO PRN ×3 (02:02→16:54)
[2017-01-09] MEDS: CIPROFLOXACIN 500 MG TAB PO SCH ×2 (05:37→17:29)
[2017-01-09 06:10] LABS: ADD SCAN DIFF NO
[2017-01-09 06:17] LABS: BASOPHILS % 0.6 % (0.0-2.0); EOSINOPHILS # 0.1 10^3/ul (0.0-0.5); EOSINOPHILS % 1.9 % (0.0-7.0); HEMOGLOBIN 13.1 g/dl (14.0-18.0); LYMPHOCYTES # 2.1 10^3/ul (0.8-2.9); LYMPHOCYTES % 31.2 % (15.0-51.0); MEAN CORPUSCULAR HGB CONC 33.6 g/dl (32.0-37.0); MEAN CORPUSCULAR VOLUME 92.2 fl (82.0-101.0); MEAN PLATELET VOLUME 9.3 fl (7.4-10.4); MONOCYTE # 0.7 10^3/ul (0.3-0.9); MONOCYTES % 9.6 % (0.0-11.0); NEUTROPHIL # 3.8 10^3/ul (1.6-7.5); NEUTROPHILS % 55.8 % (39.0-77.0); PLATELET COUNT 211 10^3/UL (140-415); RED BLOOD COUNT 4.23 10^6/ul (4.70-6.10); RED CELL DISTRIBUTION WIDTH 14.1 % (11.5-14.5); WHITE BLOOD COUNT 6.7 10^3/ul (4.8-10.8)
[2017-01-09 06:39] LABS: POTASSIUM 4.5 mmol/L (3.5-5.1)
[2017-01-09 06:41] LABS: CREATININE 1.2 mg/dl (0.61-1.24)
[2017-01-09 06:42] LABS: CALCIUM 9.2 mg/dl (8.4-10.2)
[2017-01-09 06:50] LABS: MAGNESIUM 1.6 mg/dl (1.7-2.5); PHOSPHORUS 4.6 mg/dl (2.5-4.9)
--- NOTE | 2017-01-09 07:29 | PN ---
DATE: 01/08/2017 TIME OF EVALUATION: 12:30 p.m. SUBJECTIVE DATA: Denies any pain. Vital signs stable. OBJECTIVE DATA: VITAL SIGNS: Temperature 98.1, pulse rate 69, respiratory rate 18, blood pressure 119/70, oxygen saturation 97% on room air. GENERAL: This is a well-built, well-nourished male patient sitting in bed, in no apparent distress. HEENT: Head: Normocephalic and atraumatic. Eyes: Anicteric sclerae. Conjunctivae clear. ENT: Nasal septum is midline. Oral mucosa is moist. NECK: Supple. No JVD noticed. RESPIRATORY: Bilaterally clear to auscultation. No adventitious breath sounds heard. No use of accessory muscles of respiration. CARDIAC: Regular rate and rhythm. S1, S2 heard. ABDOMEN: Soft, nontender, and nondistended. Bowel sounds positive in all 4 quadrants. GENITOURINARY: Deferred. EXTREMITIES: No cyanosis, no clubbing, no edema. Peripheral pulses palpable. Right lower extremity erythema from the heel to the right midthigh. 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 LABORATORY AND DIAGNOSTIC DATA: None for today. ASSESSMENT AND PLAN 1. Right foot 4th toe cellulitis with possible osteomyelitis. Continue antibiotics as per infectious diseases. Status post evaluation by podiatry. 2. Congestive heart failure, compensated. Continue Lasix. 3. Essential hypertension. Continue antihypertensives. 4. Benign prostatic hypertrophy. Continue alpha blockers. 5. Type 2 diabetes mellitus. Hemoglobin A1c 5.9. Continue sliding scale insulin. 6. Fluid, electrolytes, and nutrition. Carbohydrate controlled diet. 7. Deep venous thrombosis prophylaxis. Subcutaneous heparin. 8. Gastrointestinal prophylaxis. Histamine 2 receptor blockers. 9. Plan. Continue antibiotics as per infectious disease. Await finalization of antibiotics by infectious diseases before discharge. The case was discussed with Dr. Levi. ELLIE LEVI MD, AM/EBONY Conf#: [id number] DID#: [id number] MTDD
[2017-01-09 08:08] VITALS: BP 117/68; RESP 16
[2017-01-09] MEDS: INSULIN ASPART [NOVOLOG] 3 ML PEN SC SCH ×4 (08:39→21:00)
[2017-01-09] MEDS: MUPIROCIN 2% 22 GM OINT TOP SCH ×2 (08:40→20:41)
[2017-01-09] MEDS: ASPIRIN (EC) 81 MG TAB PO SCH (08:40)
[2017-01-09] MEDS: TRIMETHOPRIM/SULFAMETHOX (DS) TAB PO SCH ×2 (08:40→20:42)
[2017-01-09] MEDS: FLUTICASONE 0.05% 16 GM NAS SPRAY NASAL SCH ×2 (08:40→20:42)
[2017-01-09] MEDS: CARISOPRODOL 350 MG TAB PO SCH ×2 (08:41→20:42)
[2017-01-09] MEDS: FUROSEMIDE 40 MG TAB PO SCH (08:41)
[2017-01-09] MEDS: FAMOTIDINE 20 MG TAB PO SCH ×2 (08:42→20:42)
[2017-01-09] MEDS: FINASTERIDE 5 MG TAB PO SCH (08:42)
[2017-01-09] MEDS: LISINOPRIL 10 MG TAB PO SCH (08:42)
[2017-01-09] MEDS: HEPARIN 5,000 UNIT/0.5 ML VIAL SC SCH ×2 (08:44→20:44)
[2017-01-09 10:00] VITALS: BP 101/60; PULSE 62
--- NOTE | 2017-01-09 12:29 | PN ---
Date/Time of Note Date/Time of Note DATE: 01/09/17 TIME: 12:27 Assessment/Plan VTE Prophylaxis VTE Prophylaxis Intervention: SCD's Lines/Catheters Urinary Cath still in place: No Assessment/Plan Assessment/Plan 1. Right foot 4th toe cellulitis with possible osteomyelitis. Continue antibiotics as per infectious diseases. Status post evaluation by podiatry. 2. Congestive heart failure, compensated. Continue Lasix. 3. Essential hypertension. Continue antihypertensives. 4. Benign prostatic hypertrophy. Continue alpha blockers. 5. Type 2 diabetes mellitus. Hemoglobin A1c 5.9. Continue sliding scale insulin. 6. Fluid, electrolytes, and nutrition. Carbohydrate controlled diet. 7. Deep venous thrombosis prophylaxis. Subcutaneous heparin. 8. Gastrointestinal prophylaxis. Histamine 2 receptor blockers. 9. Continue antibiotics as per infectious disease. Await finalization of antibiotics by infectious diseases before discharge. sober living placement on discharge Subjective 24 Hr Interval Summary Free Text/Dictation c/o back pain, requiring IV pain meds, ID do not want PICC line and IV abx, wound care stable Exam/Review of Systems Vital Signs Vitals Vital Signs Date Time Temp Pulse Resp B/P Pulse Ox O2 Delivery O2 Flow Rate FiO2 01/09/17 08:08 98.2 74 16 117/68 97 Intake and Output 01/08/17 01/08/17 01/09/17 15:00 23:00 07:00 Intake Total 250 ml 420 ml 500 ml Output Total 1200 ml Balance 250 ml -780 ml 500 ml Exam GENERAL: A/A/O, VSS HEENT: Unremarkable NECK: Trach-> midline CHEST: Equal chest rise bilaterally, without dyspnea on observation HEART: Pulse RRR ABDOMEN: Soft EXTREMITIES: Warm SKIN: Warm, dry Results Result Diagram: 01/09/17 0538 01/09/17 0538 Results 24 hrs Laboratory Tests Test 01/08/17 16:49 01/08/17 20:38 01/09/17 05:38 01/09/17 08:00 Bedside Glucose 126 111 176 White Blood Count 6.7 # Red Blood Count 4.23 L Hemoglobin 13.1 L Hematocrit 39.0 L Mean Corpuscular Volume 92.2 Mean Corpuscular Hemoglobin 31.0 Mean Corpuscular Hemoglobin Concent 33.6 Red Cell Distribution Width 14.1 Platelet Count 211 Mean Platelet Volume 9.3 Neutrophils % 55.8 Lymphocytes % 31.2 Monocytes % 9.6 Eosinophils % 1.9 Basophils % 0.6 Nucleated Red Blood Cells % 0.0 Neutrophils # 3.8 Lymphocytes # 2.1 Monocytes # 0.7 Eosinophils # 0.1 Basophils # 0.0 Nucleated Red Blood Cells # 0.0 Sodium Level 141 Potassium Level 4.5 Chloride Level 111 H Carbon Dioxide Level 26 Anion Gap 9 Blood Urea Nitrogen 31 H Creatinine 1.20 Glucose Level 87 Calcium Level 9.2 Phosphorus Level 4.6 Magnesium Level 1.6 L Vitamin D 1,25-Dihydroxy 33.4 Test 01/09/17 11:59 Bedside Glucose 102 Medications Medications Current Medications Ondansetron HCl (Zofran Inj) 4 mg Q6H PRN IV NAUSEA AND/OR VOMITING; Start at 09:30 Acetaminophen (Tylenol Tab) 650 mg Q6H PRN PO PAIN LEVEL 1-3 OR FEVER Last administered on 01/08/17 17:01; Admin Dose 650 MG; Start 01/03/17 at 09:30 Morphine Sulfate (morphine) 2 mg Q4H PRN IV SEVERE PAIN LEVEL 7-10 Last administered on 01/08/17 18:41; Admin Dose 2 MG; Start 01/03/17 at 09:30 Heparin Sodium (Porcine) (Heparin (5000 Units/0.5 ml)) 5,000 unit Q12 SC Last administered on 01/09/17 08:44; Admin Dose 5,000 UNIT; Start 01/03/17 at 21:00 Amitriptyline HCl (Elavil) 100 mg QHS PO Last administered on 01/08/17 20:47; Admin Dose 100 MG; Start 01/03/17 at 21:00 Aspirin (Halfprin) 81 mg DAILY PO Last administered on 01/09/17 08:40; Admin Dose 81 MG; Start 01/04/17 at 09:00 Carvedilol (Coreg) 3.125 mg DAILY PO Last administered on 01/09/17 08:41; Admin Dose 3.125 MG; Start 01/04/17 at 09:00 Clonidine (Catapres) 0.1 mg BID PO Last administered on 01/08/17 20:41; Admin Dose 0.1 MG; Start 01/03/17 at 21:00 Finasteride (Proscar) 5 mg DAILY PO Last administered on 01/09/17 08:42; Admin Dose 5 MG; Start 01/04/17 at 09:00 Lisinopril (Zestril) 10 mg DAILY PO Last administered on 01/09/17 08:42; Admin Dose 10 MG; Start 01/04/17 at 09:00 Hydromorphone HCl (Dilaudid) 4 mg Q4H PRN PO PAIN Last administered on 06:10; Admin Dose 4 MG; Start 01/03/17 at 11:00 Zolpidem Tartrate (Ambien) 10 mg HS PRN PO INSOMNIA Last administered on 20:25; Admin Dose 10 MG; Start 01/04/17 at 02:30 Diagnostic Test (Pha) (Accu-Chek) 1 ea 02 XX ; Start 01/05/17 at 02:00 Furosemide (Lasix) 40 mg DAILY PO Last administered on 01/09/17 08:41; Admin Dose 40 MG; Start 01/04/17 at 14:00 Miscellaneous Information 1 ea NOTE XX ; Start 01/04/17 at 14:00 Glucose (Glutose) 15 gm Q15M PRN PO DECREASED GLUCOSE; Start 01/04/17 at 14:00 Glucose (Glutose) 22.5 gm Q15M PRN PO DECREASED GLUCOSE; Start 01/04/17 at 14: 00 Dextrose (D50w Syringe) 25 ml Q15M PRN IV DECREASED GLUCOSE; Start 01/04/17 at 14:00 Dextrose (D50w Syringe) 50 ml Q15M PRN IV DECREASED GLUCOSE; Start 01/04/17 at 14:00 Glucagon (Glucagen) 1 mg Q15M PRN IM DECREASED GLUCOSE; Start 01/04/17 at 14:00 Glucose (Glutose) 15 gm Q15M PRN BUCCAL DECREASED GLUCOSE; Start 01/04/17 at 14 :00 Fluticasone Propionate (Flonase 0.05% Nasal) 1 spray BID NASAL Last administered on 01/09/17 08:40; Admin Dose 1 SPRAY; Start 01/06/17 at 10:00 Mupirocin (Bactroban) 1 applic BID TOP Last administered on 01/09/17 08:40; Admin Dose 1 APPLIC; Start 01/06/17 at 21:00 Carisoprodol (Soma) 350 mg BID PO Last administered on 01/09/17 08:41; Admin Dose 350 MG; Start 01/08/17 at 09:00 Famotidine (Pepcid) 20 mg BID PO Last administered on 01/09/17 08:42; Admin Dose 20 MG; Start 01/08/17 at 21:00 Ciprofloxacin (Cipro) 500 mg BID@ PO Last administered on 01/09/17 05:37 ; Admin Dose 500 MG; Start 01/08/17 at 18:00; Stop 02/13/17 at 17:59 Trimethoprim/ Sulfamethoxazole (Bactrim (Ds)) 1 tab BID PO Last administered on 01/09/17 08:40; Admin Dose 1 TAB; Start 01/08/17 at 21:00; Stop 02/27/17 at 20:59 ANGELITO GOODWIN MD January 09, 2017 12:29
--- NOTE | 2017-01-09 12:40 | PDOCDIS ---
Discharge Instructions CONDITION Patient Condition: Good HOME CARE INSTRUCTIONS: Special Diet: carb control ACTIVITY: Activity Restrictions: Slowly Increase Activity Rest between Activity Avoid heavy lifting Avoid Heavy Housework FOLLOW UP/APPOINTMENTS Appointments follow up with his own PMD through HMO insurance in 1-2 week after discharge ANGELITO GOODWIN MD January 09, 2017 12:40
[2017-01-09] MEDS ORDERED: CIPR500T4 PO (12:43)
[2017-01-09] MEDS ORDERED: Trimethoprim/Sulfamethox (Ds) PO (12:43)
[2017-01-09] MEDS ORDERED: HYDR2TAB15 PO (12:43)
[2017-01-09] MEDS ORDERED: METO10TA92 PO (12:43)
[2017-01-09] MEDS: NICOTINE (14 MG/24 HR) PATCH TRANSDERM SCH (18:03)
[2017-01-09 20:00] VITALS: BP 154/82; RESP 18
[2017-01-09] MEDS: AMITRIPTYLINE 50 MG TAB PO SCH (20:42)
[2017-01-09] MEDS: ZOLPIDEM 5 MG TAB PO PRN (21:01)
--- NOTE | 2017-01-09 22:39 | PN ---
DATE: 01/09/2017 SUBJECTIVE: No events. The patient is alert, feels well, ambulating in the hallway. No fevers. ANTIMICROBIALS: He is on oral Bactrim. DIAGNOSTICS: MRI of the foot revealed fracture of the 4th proximal phalangeal head with some destru ctive changes. PHYSICAL EXAMINATION: GENERAL: Well-developed, middle-aged man who is alert, in no distress. HEENT: Head atraumatic, normocephalic. Sclerae anicteric. Buccal mucosa dry. NECK: Supple. Trachea midline. CHEST: Rise symmetrical. Breath sounds clear. HEART: S1, S2. ABDOMEN: Soft. Bowel tones present. EXTREMITIES: Without cyanosis. ASSESSMENT: 1. Right foot cellulitis with 4th proximal phalangeal head fracture, questionable osteomyelitis. 2. Diabetes. 3. Hypertension. PLAN: The patient remains stable. He is on Bactrim and Cipro. His foot looks better. He needs to be seen by Podiatry to evaluate MRI imaging to rule out osteomyelitis. If osteomyelitis ruled out, we will give him short-term oral antibiotics. Otherwise, he needs to be covered for long-term anti biotics with IV vancomycin and oral Cipro. Dictated By: BALBIR HOU[employer]ON [employer] TECHNICIAN for JOSE MARIA HOLLEY/EBONY Conf#: [id number] DID#: [id number]
[2017-01-10] MEDS: ACCU-CHEK XX SCH (02:00)
[2017-01-10] MEDS: HYDROmorphONE 2 MG TAB PO PRN ×3 (03:19→15:45)
[2017-01-10] MEDS: CIPROFLOXACIN 500 MG TAB PO SCH ×2 (05:39→17:58)
[2017-01-10 07:44] VITALS: BP 133/80; RESP 18
[2017-01-10] MEDS: INSULIN ASPART [NOVOLOG] 3 ML PEN SC SCH ×3 (07:57→17:22)
[2017-01-10] MEDS: TRIMETHOPRIM/SULFAMETHOX (DS) TAB PO SCH (08:54)
[2017-01-10] MEDS: FAMOTIDINE 20 MG TAB PO SCH (08:54)
[2017-01-10] MEDS: NICOTINE (14 MG/24 HR) PATCH TRANSDERM SCH (08:54)
[2017-01-10] MEDS: ASPIRIN (EC) 81 MG TAB PO SCH (08:54)
[2017-01-10] MEDS: FINASTERIDE 5 MG TAB PO SCH (08:54)
[2017-01-10] MEDS: CARISOPRODOL 350 MG TAB PO SCH (08:54)
[2017-01-10] MEDS: FLUTICASONE 0.05% 16 GM NAS SPRAY NASAL SCH (08:55)
[2017-01-10] MEDS: MUPIROCIN 2% 22 GM OINT TOP SCH (08:55)
[2017-01-10] MEDS: HEPARIN 5,000 UNIT/0.5 ML VIAL SC SCH (08:56)
[2017-01-10] MEDS: FUROSEMIDE 40 MG TAB PO SCH (08:57)
[2017-01-10] MEDS: LISINOPRIL 10 MG TAB PO SCH (08:57)
--- NOTE | 2017-01-10 13:16 | PN ---
Date/Time of Note Date/Time of Note DATE: 01/10/17 TIME: 13:14 Assessment/Plan VTE Prophylaxis VTE Prophylaxis Intervention: heparin Lines/Catheters IV Catheter Type (from Nrs): Saline Lock Urinary Cath still in place: No Assessment/Plan Assessment/Plan 1. Right foot 4th toe cellulitis with possible osteomyelitis. Continue antibiotics as per infectious diseases. Status post evaluation by podiatry. 2. Congestive heart failure, compensated. Continue Lasix. 3. Essential hypertension. Continue antihypertensives. 4. Benign prostatic hypertrophy. Continue alpha blockers. 5. Type 2 diabetes mellitus. Hemoglobin A1c 5.9. Continue sliding scale insulin. 6. Fluid, electrolytes, and nutrition. Carbohydrate controlled diet. 7. Deep venous thrombosis prophylaxis. Subcutaneous heparin. 8. Gastrointestinal prophylaxis. Histamine 2 receptor blockers. 9. Continue antibiotics as per infectious disease. Await finalization of antibiotics by infectious diseases before discharge. sober living placement on discharge with cipro + bactrim on d/c, dilaudid prn pain Subjective 24 Hr Interval Summary Free Text/Dictation no acute events,BP stable Exam/Review of Systems Vital Signs Vitals Vital Signs Date Time Temp Pulse Resp B/P Pulse Ox O2 Delivery O2 Flow Rate FiO2 01/10/17 07:44 98.3 65 18 133/80 99 Intake and Output 01/09/17 01/09/17 01/10/17 15:00 23:00 07:00 Intake Total 1280 ml 860 ml Output Total 1100 ml 1300 ml Balance 180 ml -440 ml Exam GENERAL: A/A/O, VSS HEENT: Unremarkable NECK: Trach-> midline CHEST: Equal chest rise bilaterally, without dyspnea on observation HEART: Pulse RRR ABDOMEN: Soft EXTREMITIES: Warm SKIN: Warm, dry Results Result Diagram: 01/09/17 0538 01/09/17 0538 Results 24 hrs Laboratory Tests Test 01/09/17 16:56 01/09/17 20:39 01/10/17 07:56 01/10/17 12:08 Bedside Glucose 121 132 116 143 Medications Medications Current Medications Ondansetron HCl (Zofran Inj) 4 mg Q6H PRN IV NAUSEA AND/OR VOMITING; Start at 09:30 Acetaminophen (Tylenol Tab) 650 mg Q6H PRN PO PAIN LEVEL 1-3 OR FEVER Last administered on 01/08/17t 17:01; Admin Dose 650 MG; Start 01/03/17 at 09:30 Morphine Sulfate (morphine) 2 mg Q4H PRN IV SEVERE PAIN LEVEL 7-10 Last administered on 01/08/17 18:41; Admin Dose 2 MG; Start 01/03/17 at 09:30 Heparin Sodium (Porcine) (Heparin (5000 Units/0.5 ml)) 5,000 unit Q12 SC Last administered on 01/10/17 08:56; Admin Dose 5,000 UNIT; Start 01/03/17 at 21:00 Amitriptyline HCl (Elavil) 100 mg QHS PO Last administered on 01/09/17 20:42; Admin Dose 100 MG; Start 01/03/17 at 21:00 Aspirin (Halfprin) 81 mg DAILY PO Last administered on 01/10/17 08:54; Admin Dose 81 MG; Start 01/04/17 at 09:00 Carvedilol (Coreg) 3.125 mg DAILY PO Last administered on 01/10/17 08:56; Admin Dose 3.125 MG; Start 01/04/17 at 09:00 Clonidine (Catapres) 0.1 mg BID PO Last administered on 01/10/17 08:57; Admin Dose 0.1 MG; Start 01/03/17 at 21:00 Finasteride (Proscar) 5 mg DAILY PO Last administered on 01/10/17 08:54; Admin Dose 5 MG; Start 01/04/17 at 09:00 Lisinopril (Zestril) 10 mg DAILY PO Last administered on 01/10/17 08:57; Admin Dose 10 MG; Start 01/04/17 at 09:00 Hydromorphone HCl (Dilaudid) 4 mg Q4H PRN PO PAIN Last administered on 08:55; Admin Dose 4 MG; Start 01/03/17 at 11:00 Zolpidem Tartrate (Ambien) 10 mg HS PRN PO INSOMNIA Last administered on 21:01; Admin Dose 10 MG; Start 01/04/17 at 02:30 Diagnostic Test (Pha) (Accu-Chek) 1 ea 02 XX ; Start 01/05/17 at 02:00 Furosemide (Lasix) 40 mg DAILY PO Last administered on 01/10/17 08:57; Admin Dose 40 MG; Start 01/04/17 at 14:00 Miscellaneous Information 1 ea NOTE XX ; Start 01/04/17 at 14:00 Glucose (Glutose) 15 gm Q15M PRN PO DECREASED GLUCOSE; Start 01/04/17 at 14:00 Glucose (Glutose) 22.5 gm Q15M PRN PO DECREASED GLUCOSE; Start 01/04/17 at 14: 00 Dextrose (D50w Syringe) 25 ml Q15M PRN IV DECREASED GLUCOSE; Start 01/04/17 at 14:00 Dextrose (D50w Syringe) 50 ml Q15M PRN IV DECREASED GLUCOSE; Start 01/04/17 at 14:00 Glucagon (Glucagen) 1 mg Q15M PRN IM DECREASED GLUCOSE; Start 01/04/17 at 14:00 Glucose (Glutose) 15 gm Q15M PRN BUCCAL DECREASED GLUCOSE; Start 01/04/17 at 14 :00 Fluticasone Propionate (Flonase 0.05% Nasal) 1 spray BID NASAL Last administered on 01/10/17 08:55; Admin Dose 1 SPRAY; Start 01/06/17 at 10:00 Mupirocin (Bactroban) 1 applic BID TOP Last administered on 01/10/17 08:55; Admin Dose 1 APPLIC; Start 01/06/17 at 21:00 Carisoprodol (Soma) 350 mg BID PO Last administered on 01/10/17 08:54; Admin Dose 350 MG; Start 01/08/17 at 09:00 Famotidine (Pepcid) 20 mg BID PO Last administered on 01/10/17 08:54; Admin Dose 20 MG; Start 01/08/17 at 21:00 Ciprofloxacin (Cipro) 500 mg BID@18 PO Last administered on 01/10/17 05:39 ; Admin Dose 500 MG; Start 01/08/17 at 18:00; Stop 02/13/17 at 17:59 Trimethoprim/ Sulfamethoxazole (Bactrim (Ds)) 1 tab BID PO Last administered on 01/10/17 08:54; Admin Dose 1 TAB; Start 01/08/17 at 21:00; Stop 02/27/17 at 20:59 Nicotine (Nicoderm 14 Mg/ 24hr) 1 patch DAILY TRANSDERM Last administered on 08:54; Admin Dose 1 PATCH; Start 01/09/17 at 18:00 ANGELITO GOODWIN MD January 10, 2017 13:16
--- NOTE | 2017-01-11 23:29 | DS ---
DATE OF ADMISSION: 01/03/2017 DATE OF DISCHARGE: 01/10/2017 FINAL DISCHARGE DIAGNOSES: 1. Right foot fourth toe cellulitis with possible osteomyelitis. 2. Congestive heart failure, systolic and diastolic, compensated. 3. Essential hypertension. 4. Benign prostatic hypertrophy. 5. Type 2 diabetes mellitus. CONSULTATIONS DONE DURING THIS HOSPITALIZATION: 1. Infectious disease consultation, Dr. Patterson. 2. Vascular surgery consult, Dr. Santana [facility] COURSE: This is a 56-year-old male who was living in a sober living facility with a past medical history of previous osteomyelitis, who presented with history of DVT in 2016. The patient presented with right foot fourth toe cellulitis. The patient had consultation done by infectious disease service. His initial workup was possible for osteomyelitis. He was treated with IV antibiotics, which was subsequently changed to ciprofloxacin and Bactrim. The patient had a blood culture done during this hospitalization, which was negative. He was afebrile. His white count initially was high, but then improved to normal at the time of discharge. Infectious disease recommended p.o. antibiotics, ciprofloxacin and Bactrim. They decided against any IV antibiotics due to the patient's homelessness and history of drug abuse. He was not recommended to have any IV antibiotics. He gets discharged home with a prescription for Cipro and Bactrim with pain medication of Dilaudid p.r.n. on discharge. DISPOSITION: To sober living home self-care. DISCHARGE CONDITION: Stable and improved compared to admission. DISCHARGE ACTIVITIES: As tolerated, slowly resume to the normal baseline activity. DISCHARGE DIET: Low fat, low sodium diet. DISCHARGE MEDICATIONS: He is given new prescription of: 1. Ciprofloxacin 500 mg p.o. b.i.d. x6 weeks. 2. Bactrim 1 tablet p.o. b.i.d. x6 to 8 weeks. 3. Dilaudid 2 mg p.o. q hours p.r.n. severe pain. 4. Reglan 10 mg p.o. q.6h. p.r.n. nausea, vomiting. DISCHARGE FOLLOWUP AND INSTRUCTIONS: 1. The patient is to follow up with his own primary care doctor through his O insurance 1 to 2 weeks after discharge. 2. The patient is to follow with infectious disease service as outpatient through his [facility] insurance 1 to 2 weeks after discharge. He has been explained about the discharge plan and followup instructions. He understood and verbalized understanding. Dictated By: ANGELITO GOODWIN MD, KP/EBONY Conf#: [id number] DID#: [id number] MTDD
== END 2017-01-10 18:17 | disposition home or self-care (01) | DRG 638 ==
LOC: E/R 03:42 → PP2 03:58
PROVIDERS: ADMIT Internal Medicine; ATTEND Internal Medicine
DX: E11.69 Type 2 diabetes mellitus with other specified complication (principal); M86.171 Other acute osteomyelitis, right ankle and foot; E11.621 Type 2 diabetes mellitus with foot ulcer; I11.0 Hypertensive heart disease with heart failure; I50.40 Unspecified combined systolic (congestive) and diastolic (congestive) heart failure; L03.115 Cellulitis of right lower limb; M80.071A Age-related osteoporosis with current pathological fracture, right ankle and foot, initial encounter for fracture; E11.628 Type 2 diabetes mellitus with other skin complications; L97.519 Non-pressure chronic ulcer of other part of right foot with unspecified severity; Z79.84 Long term (current) use of oral hypoglycemic drugs; F32.9 Major depressive disorder, single episode, unspecified; N40.0 Benign prostatic hyperplasia without lower urinary tract symptoms; E11.9 Type 2 diabetes mellitus without complications; F17.200 Nicotine dependence, unspecified, uncomplicated; Z59.0 Homelessness; G89.4 Chronic pain syndrome; Z22.322 Carrier or suspected carrier of Methicillin resistant Staphylococcus aureus; I70.212 Atherosclerosis of native arteries of extremities with intermittent claudication, left leg; I70.235 Atherosclerosis of native arteries of right leg with ulceration of other part of foot; Z86.718 Personal history of other venous thrombosis and embolism; Z79.82 Long term (current) use of aspirin
CPT/HCPCS: 36415; 73630; 73718; 80048; 80053; 80202; 81003; 82306; 82565; 82652; 82962; 83036; 83690; 83735; 84100; 84520; 85025; 85610; 85730; 87040; 87081; 93922; 96365; 96366; 96375; J0692; J1170; J1644; J1815; J2270; J2405; J3370; J3475; J7040; J7050

== ENCOUNTER 2017-02-14 23:58 | Inpatient (IN) | payer BC ==
[~2017-02-14] VITALS: Ht 182.9 cm; Wt 113.8 kg
[2017-02-14 23:50] VITALS: BP 147/79; PULSE 67; RESP 22
[~2017-02-14 23:58] MED LIST changes: +AMIT100T2 PO; -ARIP5TAB7 PO; +ASPI-664 PO; -BACTDS PO; -CARI350T29 PO; +CARV3.12 PO; +CIPR500T4 PO; -CLON2TAB3 PO; -CYCL-319 PO; -FER325 PO; -FURO40TA4 PO; -GABA-528 PO; +HYDR2TAB36 PO; +IBUP-1542 PO; -MAG355OR15 PO; +METO10TA92 PO; -MIRT15TA5 PO; -PRAV20TA2 PO; -SPIR100T31 PO; -TAMS0.4C2 PO; +Trimethoprim/Sulfamethox (Ds) PO
[2017-02-15] VITALS (11 sets, daily range): BP systolic 135–171; BP diastolic 75–89; PULSE 52–66; RESP 16–22
--- NOTE | 2017-02-15 00:55 | HP ---
Date/Time of Note Date/Time of Note DATE: 02/15/17 TIME: 00:49 Assessment/Plan VTE Prophylaxis VTE Prophylaxis Intervention: LMWH Assessment/Plan Assessment/Plan 1. Amphetamine associated rhabomyolysis 2. Multisubstance abuse : cocaine, amphetamine, heroine,. tobacco and alcohol 3. Homelessness 4. High blood pressure 5. Depression 6. BPH 7. Chronic pain 8. CHF: stable 9. History of cellulitis and osteomyelitis 10. Hx of Narcotic overdose and narcotic seeking behaviour 11 . Hx of intracardiac clot s/p coumadin therapy 12. FLO PLAN: admit / repeat CK and BMP / continue supportive care SW consult and supportive care Continue all previous meds HPI/ROS Admit Date/Time Admit Date/Time Feb 14, 2017 at 23:58 Hx of Present Illness 56 yo M transferred from [facility] where he had presented with generalized pain and was found to be in acute renal failure with severe rhabdomyolysis. He was admitted and underwent multiple imaging studies as well as a detailed workup. Notable thinks for the fact that he is CT scan of the head was negative and he also had H CT of the chest abdomen and pelvis that had multiple findings of no real significance. He is also seen to have nonobstructing right-sided renal stones. His creatinine kinase was 2530 on arrival, and his urine toxicology screen was positive for amphetamines and cocaine. The patient did endorse daily alcohol as well as tobacco use as well. He was admitted and worked up. He rule out for an acute coronary syndrome, and was seen by geriatric social worker but was assessed to be homeless. He is being transferred to us for continued care due to insurance reasons, and further interventions will depend on his clinical course. At this time the patient even though clinically comfortable and using his phone, is complaining of generalized pain, patient is requesting Dilaudid by name, patient has history of medication seeking behavior on weight history of multi-substance abuse is not safe for potent narcotic therapy. ROS 12 point review if systems was done and pertinent findings are as noted. PMH/Family/Social Past Medical History 1. High blood pressure 2. Depression 3. BPH 4. Chronic pain 5. CHF 6. History of cellulitis and osteomyelitis 7. Hx of Narcotic overdose and narcotic seeking behaviour 8 . Hx of intracardiac clot s/p coumadin therapy Social History Drug Use: other (hx of prev Meth use) Exam/Review of Systems Vital Signs Vitals Vital Signs Date Time Temp Pulse Resp B/P Pulse Ox O2 Delivery O2 Flow Rate FiO2 02/15/17 00:34 99.0 67 22 147/79 98 Exam Constitutional: alert, oriented Psych: nl mood/affect Eyes: PERRL ENMT: mucosa pink and moist Respiratory: clear to auscultation Cardiovascular: regular rate and rhythm, No murmurs/extra sounds Gastrointestinal: bowel sounds, non-tender, soft Extremities: other (chronic venous stasis changes) Medications Medications Current Medications Amitriptyline HCl (Elavil) 100 mg QHS PO ; Start 02/15/17 at 21:00; Status UNV Aspirin (Halfprin) 81 mg DAILY PO ; Start 02/15/17 at 09:00; Status UNV Carvedilol (Coreg) 3.125 mg DAILY PO ; Start 02/15/17 at 09:00; Status UNV Clonidine (Catapres) 0.1 mg BID PO ; Start 02/15/17 at 09:00; Status UNV Finasteride (Proscar) 5 mg DAILY PO ; Start 02/15/17 at 09:00; Status UNV Lisinopril (Zestril) 10 mg DAILY PO ; Start 02/15/17 at 09:00; Status UNV ASHLEIGH LEVI Feb 15, 2017 00:55
[2017-02-15] MEDS ORDERED: THIA100T10 PO (00:56)
[2017-02-15] MEDS ORDERED: MULTI PO (00:56)
[2017-02-15] MEDS ORDERED: CYAN100080 PO (00:56)
[2017-02-15] MEDS ORDERED: INSU100C SQ (00:56)
[2017-02-15] MEDS ORDERED: FAMO20TA18 PO (00:56)
[2017-02-15] MEDS ORDERED: CLON1TAB3 PO (00:56)
[2017-02-15] MEDS ORDERED: ASPI81TA3 PO (00:56)
[2017-02-15] MEDS ORDERED: ACET650S13 PO (00:56)
[2017-02-15] MEDS ORDERED: FOLI-49 PO (00:56)
[2017-02-15] MEDS ORDERED: ONDANSETRON 4 MG INJ IV PRN (01:00)
[2017-02-15] MEDS ORDERED: morphine 2 MG INJ IV PRN (01:00)
[2017-02-15] MEDS ORDERED: GLUCOSE GEL 15 GRAM TUBE BUCCAL PRN (01:00)
[2017-02-15] MEDS ORDERED: GLUCAGON 1 MG INJ IM PRN (01:00)
[2017-02-15] MEDS ORDERED: DEXTROSE 50% 50 ML SYRINGE IV PRN ×2 (01:00)
[2017-02-15] MEDS ORDERED: GLUCOSE GEL 15 GRAM TUBE PO PRN ×2 (01:00)
[2017-02-15] MEDS: SOD CHLORIDE 0.9% 1,000 ML IV SCH ×3 (01:30→20:00)
[2017-02-15 06:54] LABS: ADD SCAN DIFF NO
[2017-02-15 07:04] LABS: BASOPHILS % 0.3 % (0.0-2.0); EOSINOPHILS # 0.1 10^3/ul (0.0-0.5); EOSINOPHILS % 1.3 % (0.0-7.0); HEMOGLOBIN 10.4 g/dl (14.0-18.0); LYMPHOCYTES # 1.2 10^3/ul (0.8-2.9); LYMPHOCYTES % 17.1 % (15.0-51.0); MEAN CORPUSCULAR HEMOGLOBIN 32.6 pg (29.0-33.0); MEAN CORPUSCULAR HGB CONC 34.7 g/dl (32.0-37.0); MONOCYTE # 0.6 10^3/ul (0.3-0.9); NEUTROPHIL # 5.2 10^3/ul (1.6-7.5); PLATELET COUNT 191 10^3/UL (140-415); RED BLOOD COUNT 3.19 10^6/ul (4.70-6.10); RED CELL DISTRIBUTION WIDTH 13.7 % (11.5-14.5); WHITE BLOOD COUNT 7.1 10^3/ul (4.8-10.8)
[2017-02-15 07:18] LABS: INR 1.03; PARTIAL THROMBOPLASTIN TIME 30.8 Sec (25.0-35.0); PROTIME 13.5 Sec (12.2-14.2); PT RATIO 1.1
[2017-02-15 07:30] LABS: ALBUMIN 3.3 g/dl (3.3-4.9); BILIRUBIN,INDIRECT 0.3 mg/dl (0-1.1); BILIRUBIN,TOTAL 0.3 mg/dl (0.2-1.3); CREATININE 1.06 mg/dl (0.61-1.24); POTASSIUM 4.2 mmol/L (3.5-5.1); TOTAL PROTEIN 5.5 g/dl (6.1-8.1)
[2017-02-15 07:33] LABS: TROPONIN-I 0.017 ng/ml (0.00-0.12)
[2017-02-15 07:34] LABS: CK-MB 3.08 ng/ml (0.0-2.4)
[2017-02-15 07:39] LABS: MAGNESIUM 0.9 mg/dl (1.7-2.5)
[2017-02-15 07:52] LABS: THYROID STIMULATING HORMONE 2.39 MIU/L (0.465-4.680)
[2017-02-15] MEDS: LISINOPRIL 10 MG TAB PO SCH (08:52)
[2017-02-15] MEDS: FINASTERIDE 5 MG TAB PO SCH (08:52)
[2017-02-15] MEDS: metFORMIN 500 MG TAB PO SCH ×2 (08:52→18:11)
[2017-02-15] MEDS: FAMOTIDINE 20 MG TAB PO SCH ×2 (08:53→20:31)
[2017-02-15] MEDS: ASPIRIN (EC) 81 MG TAB PO SCH (08:53)
[2017-02-15] MEDS: HYDROCODONE/APAP (10/325) TAB PO PRN ×2 (09:06→14:55)
[2017-02-15] MEDS ORDERED: MAGNESIUM SULFATE 4 GM/100 ML 100 ML IVPB ONE (09:30)
[2017-02-15 11:54] LABS: CREATINE KINASE 176 IU/L (23-200)
[2017-02-15 12:11] LABS: TROPONIN-I < 0.012 ng/ml (0.00-0.12)
[2017-02-15] MEDS: ENOXAPARIN 40 MG/0.4 ML SYG SC SCH (12:19)
[2017-02-15 13:12] LABS: COCAINE Negative (NEGATIVE)
[2017-02-15 13:13] LABS: BARBITURATES Negative (NEGATIVE); BENZODIAZEPINES Negative (NEGATIVE); CANNABINOIDS Negative (NEGATIVE); OPIATES Negative (NEGATIVE)
--- NOTE | 2017-02-15 14:19 | RADRPT ---
Echocardiogram Report Patient Name: MALKA YATES Gender: Male Date: 1960 Study Date: 15-Feb-2017 Hot Tar Roofer: Ev Zamudio [facility] Location: 5539 Ref. Physician: ASHLEIGH LEVI Quality: Good Procedures: Transthoracic echocardiogram with complete 2D, M-Mode, and doppler examination. Indications: Chest Pain. 2D/M Mode Doppler Measurement Value Normal Ranges Measurement Value Normal Ranges LVIDd 2D 5.5 3.5 - 5.6 cm AV Peak Alan 2.0 m/sec LVIDs 2D 3.8 2.1 - 4.1 cm AV Peak PG 17.0 mmHg FS 2D 30.7 % LVOT Peak Alan 1.1 m/sec LVPWd 2D 1.1 0.6 - 1.1 cm LVOT Peak PG 5.0 mmHg IVSd 2D 1.1 0.6 - 1.1 cm MV E Peak Alan 0.9 m/sec IVS/LVPW 2D 1.0 MV A Peak Alan 0.9 m/sec AoR Diam 2D 2.9 2.0 - 3.7 cm MV E/A 0.9 LA/Ao 2D 1 0 - 1 MV Decel Time 194 msec EDV 2D 169.0 cm3 MV E/A 0.9 ESV 2D 56.2 cm3 TR Peak Alan 2.7 m/sec LA Dimen 2D 3.5 2.3 - 4.0 cm TR Peak PG 29.0 mmHg RVSP 37.0 mmHg Findings Left Ventricle: Normal left ventricular systolic function. Normal left ventricular cavity size. Normal left ventricular wall thickness. Ejection fraction is visually estimated at 55 %. Tissue Doppler/Mitral Doppler indices are consistent with impaired relaxation (Stage I diastolic dysfunction). Right Ventricle: Normal right ventricular size. Normal right ventricular systolic function. Left Atrium: The left atrium is normal in size. Right Atrium: The right atrium is normal in size. Mitral Valve: Mitral valve leaflets appear mildly thickened. Mild mitral annular calcification. Trace mitral regurgitation. Aortic Valve: Normal appearance of the aortic valve. No significant aortic stenosis or insufficiency. Tricuspid Valve: Normal appearance and function of the tricuspid valve with trace physiologic regurgitation. Estimated peak PA systolic pressure 37 mmHg. Pulmonic Valve: Pulmonic valve not well visualized. There is trace pulmonic regurgitation. Pericardium: Normal pericardium with no significant pericardial effusion. Aorta: Normal aortic root. IVC: Normal size and normal respiratory collapse consistent with normal right atrial pressure. Conclusions 1.Normal left ventricular systolic function. Normal left ventricular cavity size. Normal left ventricular wall thickness. Ejection fraction is visually estimated at 55 %. Tissue Doppler/Mitral Doppler indices are consistent with impaired relaxation (Stage I diastolic dysfunction). 2.Normal right ventricular size. Normal right ventricular systolic function. 3.The left atrium is normal in size. 4.The right atrium is normal in size. 5.No significant valvular stenosis or regurgitation seen. 6.Normal pericardium with no significant pericardial effusion. Electronically Signed By: Dipak Ruth 15-Feb-2017 14:18:26 -0700 Patient Name: MALKA YATES Study Date: 15-Feb-[id number]
--- NOTE | 2017-02-15 16:05 | RADRPT ---
PROCEDURE: US upper extremity Venous. CLINICAL INDICATION: Right arm edema TECHNIQUE: Multiple sonographic images of the right upper extremity venous system was obtained uti lizing grayscale, color-flow, compressive sonography and doppler imaging with augmentation. The pan ges were reviewed on a PACS workstation. COMPARISON: None. FINDINGS: There is normal compressibility and flow within the right internal jugular vein, subclavian vein, ax illary vein, brachial, basilic, cephalic, radial and ulnar veins. RPTAT: AA IMPRESSION: No sonographic evidence for venous thrombosis. .Arnav Torres MD, MD Date Time Electronically viewed and signed by .Arnav Torres MD, on 02/15/2017 16:05 .S/
[2017-02-15] MEDS: clonAZEPAM 0.5 MG TAB PO SCH ×2 (18:11→20:31)
[2017-02-15] MEDS: AMITRIPTYLINE 50 MG TAB PO SCH (20:30)
[2017-02-15] MEDS: ZOLPIDEM 5 MG TAB PO PRN (20:37)
[2017-02-16] VITALS (12 sets, daily range): BP systolic 121–165; BP diastolic 71–88; PULSE 53–65; RESP 18–21
[2017-02-16] MEDS: SOD CHLORIDE 0.9% 1,000 ML IV SCH ×3 (01:00→17:00)
[2017-02-16] MEDS: HYDROCODONE/APAP (10/325) TAB PO PRN ×2 (06:53→20:40)
[2017-02-16 06:58] LABS: ADD SCAN DIFF NO
[2017-02-16 07:10] LABS: BASOPHILS % 0.4 % (0.0-2.0); EOSINOPHILS # 0.1 10^3/ul (0.0-0.5); HEMATOCRIT 33.3 % (42.0-52.0); HEMOGLOBIN 11.1 g/dl (14.0-18.0); LYMPHOCYTES # 1.1 10^3/ul (0.8-2.9); LYMPHOCYTES % 19.1 % (15.0-51.0); MEAN CORPUSCULAR HEMOGLOBIN 31.1 pg (29.0-33.0); MEAN CORPUSCULAR HGB CONC 33.3 g/dl (32.0-37.0); MEAN CORPUSCULAR VOLUME 93.3 fl (82.0-101.0); MEAN PLATELET VOLUME 9.2 fl (7.4-10.4); MONOCYTE # 0.5 10^3/ul (0.3-0.9); MONOCYTES % 9.2 % (0.0-11.0); NEUTROPHIL # 3.9 10^3/ul (1.6-7.5); NEUTROPHILS % 68.8 % (39.0-77.0); PLATELET COUNT 214 10^3/UL (140-415); RED BLOOD COUNT 3.57 10^6/ul (4.70-6.10); RED CELL DISTRIBUTION WIDTH 13.7 % (11.5-14.5); WHITE BLOOD COUNT 5.6 10^3/ul (4.8-10.8)
[2017-02-16 07:41] LABS: CALCIUM 9.4 mg/dl (8.4-10.2); CREATININE 1.1 mg/dl (0.61-1.24); POTASSIUM 4.3 mmol/L (3.5-5.1)
[2017-02-16] MEDS: ENOXAPARIN 40 MG/0.4 ML SYG SC SCH (09:14)
[2017-02-16] MEDS: FAMOTIDINE 20 MG TAB PO SCH ×2 (09:14→20:40)
[2017-02-16] MEDS: clonAZEPAM 0.5 MG TAB PO SCH ×2 (09:14→20:40)
[2017-02-16] MEDS: FINASTERIDE 5 MG TAB PO SCH (09:15)
[2017-02-16] MEDS: ASPIRIN (EC) 81 MG TAB PO SCH (09:15)
[2017-02-16] MEDS: LISINOPRIL 10 MG TAB PO SCH (09:15)
[2017-02-16] MEDS: metFORMIN 500 MG TAB PO SCH ×2 (09:15→19:21)
[2017-02-16] MEDS ORDERED: LIDOCAINE 1% (MPF) 5 ML VIAL SC ONE ×2 (14:00→15:00)
--- NOTE | 2017-02-16 14:14 | PN ---
Date/Time of Note Date/Time of Note DATE: 02/16/17 TIME: 14:06 Assessment/Plan VTE Prophylaxis VTE Prophylaxis Intervention: LMWH Lines/Catheters IV [facility]from [facility] Saline Lock Urinary Cath still in place: No Assessment/Plan Chief Complaint/Hosp Course Assessment/Plan 1. Amphetamine associated rhabomyolysis -improved now, CK levels down to normal, continue IV fluids for now, monitor 2. Multisubstance abuse : cocaine, amphetamine, heroine,. tobacco and alcohol -counseled on cessation, and patient still asking for pain medicines, holding that for now 3. Homelessness -social work consult to help with this 4. High blood pressure: Continue current blood pressure medicines, stay 5. Depression-monitor, continue Elavil 6. BPH-continue Proscar 7. Chronic pain: Again, patient exhibiting signs of drug-seeking behavior. Before he was transferred from outside hospital, their pain management doctor was adamant about not giving patient opiate medications. I agree with that, continue just clonazepam, monitor for now 8. CHF: stable 9. History of cellulitis and osteomyelitis-stable, monitor 10. Hx of Narcotic overdose and narcotic seeking behaviour-see #7 11 . Hx of intracardiac clot s/p coumadin therapy-monitor 12. FLO -resolved, monitor ins and outs, IV fluids 13. low Mag -replete when PICC line in place Problems: Subjective 24 Hr Interval Summary Free Text/Dictation Patient not able to get all of his magnesium supplementation yesterday because of inability to get an IV line. Otherwise no acute events overnight. Exam/Review of Systems Vital Signs Vitals Vital Signs Date Time Temp Pulse Resp B/P Pulse Ox O2 Delivery O2 Flow Rate FiO2 02/16/17 12:12 53 02/16/17 11:27 98.1 18 123/71 100 02/14/17 23:50 Room Air Intake and Output 02/15/17 02/15/17 02/16/17 15:00 23:00 07:00 Intake Total 1040 ml 800 ml Output Total 1200 ml 1500 ml Balance -160 ml -700 ml Exam Constitutional: alert, oriented Psych: nl mood/affect Eyes: PERRL ENMT: mucosa pink and moist Respiratory: clear to auscultation Cardiovascular: regular rate and rhythm, No murmurs/extra sounds Gastrointestinal: bowel sounds, non-tender, soft Extremities: other (chronic venous stasis changes) Results Result Diagram: 02/16/17 0635 02/16/17 0635 Results 24 hrs Laboratory Tests Test 02/15/17 17:12 02/16/17 06:35 02/16/17 08:04 02/16/17 12:43 Bedside Glucose 93 93 82 White Blood Count 5.6 # Red Blood Count 3.57 L Hemoglobin 11.1 L Hematocrit 33.3 L Mean Corpuscular Volume 93.3 Mean Corpuscular Hemoglobin 31.1 Mean Corpuscular Hemoglobin Concent 33.3 Red Cell Distribution Width 13.7 Platelet Count 214 Mean Platelet Volume 9.2 Neutrophils % 68.8 Lymphocytes % 19.1 Monocytes % 9.2 Eosinophils % 2.0 Basophils % 0.4 Nucleated Red Blood Cells % 0.0 Neutrophils # 3.9 Lymphocytes # 1.1 Monocytes # 0.5 Eosinophils # 0.1 Basophils # 0.0 Nucleated Red Blood Cells # 0.0 Sodium Level 140 Potassium Level 4.3 Chloride Level 100 Carbon Dioxide Level 29 Anion Gap 15 Blood Urea Nitrogen 17 Creatinine 1.10 Glucose Level 88 Calcium Level 9.4 Magnesium Level 1.2 L Creatine Kinase 118 Medications Medications Current Medications Amitriptyline HCl (Elavil) 100 mg QHS PO Last administered on 02/15/17 20:30; Admin Dose 100 MG; Start 02/15/17 at 21:00 Aspirin (Halfprin) 81 mg DAILY PO Last administered on 02/16/17 09:15; Admin Dose 81 MG; Start 02/15/17 at 09:00 Carvedilol (Coreg) 3.125 mg DAILY PO Last administered on 02/16/17 09:15; Admin Dose 3.125 MG; Start 02/15/17 at 09:00 Clonidine (Catapres) 0.1 mg BID PO Last administered on 02/16/17 09:16; Admin Dose 0.1 MG; Start 02/15/17 at 09:00 Finasteride (Proscar) 5 mg DAILY PO Last administered on 02/16/17 09:15; Admin Dose 5 MG; Start 02/15/17 at 09:00 Lisinopril (Zestril) 10 mg DAILY PO Last administered on 02/16/17 09:15; Admin Dose 10 MG; Start 02/15/17 at 09:00 Ondansetron HCl (Zofran Inj) 4 mg Q6H PRN IV NAUSEA AND/OR VOMITING; Start 02/15 at 01:00 Famotidine (Pepcid) 20 mg BID PO Last administered on 02/16/17 09:14; Admin Dose 20 MG; Start 02/15/17 at 09:00 Acetaminophen/ Hydrocodone Bitart ([place] (10/325)) 1 tab Q6H PRN PO pain Last administered on 02/16/17 06:53; Admin Dose 1 TAB; Start 02/15/17 at 01:00 Enoxaparin Sodium 40 mg 40 mg DAILY SC Last administered on 02/16/17 09:14; Admin Dose 40 MG; Start 02/15/17 at 09:00 Sodium Chloride (NS) 1,000 ml @ 125 mls/hr Q8H IV Last administered on 12:15; Admin Dose 125 MLS/HR; Start 02/15/17 at 01:00 Miscellaneous Information 1 ea NOTE XX ; Start 02/15/17 at 01:00 Glucose (Glutose) 15 gm Q15M PRN PO DECREASED GLUCOSE; Start 02/15/17 at 01:00 Glucose (Glutose) 22.5 gm Q15M PRN PO DECREASED GLUCOSE; Start 02/15/17 at 01:00 Dextrose (D50w Syringe) 25 ml Q15M PRN IV DECREASED GLUCOSE; Start 02/15/17 at 01:00 Dextrose (D50w Syringe) 50 ml Q15M PRN IV DECREASED GLUCOSE; Start 02/15/17 at 01:00 Glucagon (Glucagen) 1 mg Q15M PRN IM DECREASED GLUCOSE; Start 02/15/17 at 01:00 Glucose (Glutose) 15 gm Q15M PRN BUCCAL DECREASED GLUCOSE; Start 02/15/17 at 01: 00 Clonazepam (Klonopin) 1 mg BID PO Last administered on 02/16/17 09:14; Admin Dose 1 MG; Start 02/15/17 at 17:00 Zolpidem Tartrate 2.5 mg 2.5 mg HS PRN PO INSOMNIA Last administered on 20:37; Admin Dose 2.5 MG; Start 02/15/17 at 16:30 Magnesium Sulfate/ Sodium Chloride (Magnesium Sulfate/NS) 106 ml @ 35.333 mls/ hr ONCE ONCE IVPB ; Start 02/16/17 at 14:00; Stop 02/16/17 at 16:59; Status RAMON HANLEY Feb 16, 2017 14:13
[2017-02-16] MEDS ORDERED: MAGNESIUM SULFATE 3 GM in SOD CHLORIDE 0.9% 100 ML IVPB ONE (16:00)
--- NOTE | 2017-02-16 18:51 | RADRPT ---
PROCEDURE: XR Chest. CLINICAL INDICATION: PICC line placement. TECHNIQUE: Portable AP supine view of the chest was obtained. COMPARISON: 08/17/2016 FINDINGS: Distal tip of the right PICC projects over the upper right atrium, partially obscured by overlying m onitoring wires The cardiomediastinal silhouette is within normal limits. The lungs are clear. The re is no evidence for pleural effusion, pneumothorax or pulmonary vascular congestion. The osseous structures are intact with no evidence for acute abnormality. RPTAT:HJJR IMPRESSION: Distal tip of the right PICC is in satisfactory position projecting over the upper right atrium with out evidence for acute intrathoracic pathology. Physician Sylwia Date Time Electronically viewed and signed by David Balderas Physician on 02/16/2017 18:50 JR/
--- NOTE | 2017-02-16 20:12 | RADRPT ---
PROCEDURE: Ultrasound guidance for placement of needle in right upper extremity vein. CLINICAL INDICATION: Venous access. TECHNIQUE: Limited sonography of the right upper extremity was performed. Ultrasound images were recorded and stored in the patient's medical record. COMPARISON: None. FINDINGS: The ultrasound images demonstrate a patent right upper extremity vein. The PICC line was inserted b y the PICC line nurse. IMPRESSION: 1. Ultrasound guidance for a needle placement in a right upper extremity vein. 2. The visualized right upper extremity vein is patent. RPTAT: QQ .Horacio Cornejo MD, MD Date Time Electronically viewed and signed by .Horacio Cornejo MD, MD on 02/16/2017 20:11 .R/
[2017-02-16] MEDS: AMITRIPTYLINE 50 MG TAB PO SCH (20:40)
[2017-02-16] MEDS: ZOLPIDEM 5 MG TAB PO PRN (20:43)
[2017-02-17] VITALS (12 sets, daily range): BP systolic 131–160; BP diastolic 72–93; PULSE 45–55; RESP 16–21
[2017-02-17] MEDS: SOD CHLORIDE 0.9% 1,000 ML IV SCH ×2 (01:00→09:00)
[2017-02-17] MEDS: HYDROCODONE/APAP (10/325) TAB PO PRN (07:02)
[2017-02-17 07:10] LABS: ADD SCAN DIFF NO
[2017-02-17 07:15] LABS: BASOPHILS % 0.3 % (0.0-2.0); EOSINOPHILS # 0.1 10^3/ul (0.0-0.5); EOSINOPHILS % 1.3 % (0.0-7.0); HEMATOCRIT 33.1 % (42.0-52.0); HEMOGLOBIN 11.3 g/dl (14.0-18.0); LYMPHOCYTES # 1.1 10^3/ul (0.8-2.9); LYMPHOCYTES % 14.6 % (15.0-51.0); MEAN CORPUSCULAR HEMOGLOBIN 31.8 pg (29.0-33.0); MEAN CORPUSCULAR HGB CONC 34.1 g/dl (32.0-37.0); MEAN CORPUSCULAR VOLUME 93.2 fl (82.0-101.0); MONOCYTE # 0.7 10^3/ul (0.3-0.9); MONOCYTES % 8.5 % (0.0-11.0); NEUTROPHIL # 5.7 10^3/ul (1.6-7.5); NEUTROPHILS % 74.6 % (39.0-77.0); PLATELET COUNT 215 10^3/UL (140-415); RED BLOOD COUNT 3.55 10^6/ul (4.70-6.10); RED CELL DISTRIBUTION WIDTH 13.7 % (11.5-14.5); WHITE BLOOD COUNT 7.6 10^3/ul (4.8-10.8)
[2017-02-17 07:34] LABS: CREATININE 1.24 mg/dl (0.61-1.24); POTASSIUM 4.2 mmol/L (3.5-5.1)
[2017-02-17] MEDS: metFORMIN 500 MG TAB PO SCH ×2 (09:16→17:47)
[2017-02-17] MEDS: FAMOTIDINE 20 MG TAB PO SCH ×2 (09:19→20:54)
[2017-02-17] MEDS: clonAZEPAM 0.5 MG TAB PO SCH ×2 (09:19→20:54)
[2017-02-17] MEDS: ASPIRIN (EC) 81 MG TAB PO SCH (09:19)
[2017-02-17] MEDS: LISINOPRIL 10 MG TAB PO SCH (09:20)
[2017-02-17] MEDS: FINASTERIDE 5 MG TAB PO SCH (09:20)
[2017-02-17] MEDS: ENOXAPARIN 40 MG/0.4 ML SYG SC SCH (09:23)
--- NOTE | 2017-02-17 14:19 | PDOCDIS ---
Discharge Instructions CONDITION Patient Condition: Stable HOME CARE INSTRUCTIONS: Special Diet: 1800 lorna ACTIVITY: Activity Restrictions: Slowly Increase Activity FOLLOW UP/APPOINTMENTS Follow-up Plan Please take your medicines as prescribed. Please see your primary care doctor in the clinic in the next 1 week. RAMON TROTTER Feb 17, 2017 14:19
[2017-02-17] MEDS ORDERED: FOLI-49 PO (14:23)
[2017-02-17] MEDS ORDERED: MULTI PO (14:23)
[2017-02-17] MEDS ORDERED: THIA100T10 PO (14:23)
[2017-02-17] MEDS ORDERED: CARV3.12 PO (14:26)
[2017-02-17] MEDS ORDERED: ASPI-664 PO (14:26)
[2017-02-17] MEDS ORDERED: LISI10TA2 PO (14:26)
[2017-02-17] MEDS ORDERED: FINA5TAB4 PO (14:26)
[2017-02-17] MEDS ORDERED: AMIT100T2 PO (14:26)
--- NOTE | 2017-02-17 14:31 | DS ---
Date/Time of Note Date/Time of Note DATE: 02/17/17 TIME: 14:28 Discharge Summary Admission/Discharge Info Admit Date/Time Feb 14, 2017 at 23:58 Discharge Date/Time Discharge Diagnosis 1. Amphetamine associated rhabomyolysis -improved now, CK levels down to normal 2. Multisubstance abuse : cocaine, amphetamine, heroine,. tobacco and alcohol -counseled on cessation 3. Homelessness -social work consult obtained 4. High blood pressure 5. Depression- Elavil 6. BPH-Proscar 7. Chronic pain: Again, patient exhibiting signs of drug-seeking behavior. Before he was transferred from outside hospital, their pain management doctor was adamant about not giving patient opiate medications. I agree with that, continue just clonazepam, monitor for now 8. CHF: stable 9. History of cellulitis and osteomyelitis-stable 10. Hx of Narcotic overdose and narcotic seeking behaviour-counseled by pain management team 11 . Hx of intracardiac clot s/p coumadin therapy-monitor 12. FLO -resolved, 13. low Mag -repleted Patient Condition: Stable Hx of Present Illness . Hospital Course 56 yo M transferred from [facility] where he had presented with generalized pain and was found to be in acute renal failure with severe rhabdomyolysis. He was admitted and underwent multiple imaging studies as well as a detailed workup. Notable thinks for the fact that he is CT scan of the head was negative and he also had H CT of the chest abdomen and pelvis that had multiple findings of no real significance. He is also seen to have nonobstructing right-sided renal stones. His creatinine kinase was 2530 on arrival, and his urine toxicology screen was positive for amphetamines and cocaine. The patient did endorse daily alcohol as well as tobacco use as well. He was admitted and worked up. He rule out for an acute coronary syndrome, and was seen by long term care social worker but was assessed to be homeless. He is being transferred to us for continued care due to insurance reasons, and further interventions will depend on his clinical course. At this time the patient even though clinically comfortable and using his phone, is complaining of generalized pain, patient is requesting Dilaudid by name, patient has history of medication seeking behavior on weight history of multi-substance abuse is not safe for potent narcotic therapy. So patient was transferred here due to insurance purposes as mentioned above, he was continued on IV fluids labs were checked as well. He was continued only on clonazepam medications. Over the course of his hospital stay he had some low magnesium levels that were repleted to normal levels by the time of discharge, he was able to ambulate, had no more further significant muscle pains or myalgias, tolerating a p.o. diet. He was again counseled about drug and alcohol cessation. And will be discharged home today in improved condition, he will apple picker his prescriptions at [facility] in [place] as we have electronically transmitted them over there and see this discharge summary for full discharge medication list. Home Meds Active Scripts Aspirin* (Aspirin* EC) 81 Mg Tablet.dr, 81 MG PO DAILY, #30 TAB 1 Refill Prov:RAMON TROTTER 02/17/17 Amitriptyline Hcl* (Amitriptyline Hcl*) 100 Mg Tablet, 100 MG PO QHS, #30 TAB 2 Refills Prov:RAMON TROTTER S. 02/17/17 Carvedilol* (Coreg*) 3.125 Mg Tablet, 3.125 MG PO DAILY, #60 TAB 2 Refills Prov:RAMON TROTTER 02/17/17 Lisinopril* (Lisinopril*) 10 Mg Tablet, 10 MG PO DAILY, #30 TAB 2 Refills Prov:RAMON TROTTER 02/17/17 Folic Acid* (Folic Acid*) 1 Mg Tablet, 1 MG PO DAILY, #30 TAB 2 Refills Prov:RAMON TROTTER S. 02/17/17 Thiamine* (Thiamine*) 100 Mg Tablet, 100 MG PO DAILY, #30 TAB 2 Refills Prov:RAMON TROTTER 02/17/17 Multivitamins* (Theragran*) 1 Tab Tab, 1 TAB PO DAILY, #30 TAB 2 Refills Prov:RAMON TROTTER 02/17/17 Hydromorphone Hcl* (Dilaudid*) 2 Mg Tablet, 2 MG PO Q8H Y for SEVERE PAIN LEVEL 7-10, #40 TAB Prov:ANGELITO GOODWIN MD 01/09/17 Metoclopramide* (Reglan*) 10 Mg Tablet, 10 MG PO Q6H Y for NAUSEA AND OR VOMITING, #30 TAB Prov:ANGELITO GOODWIN MD 01/09/17 Reported Medications Insulin Lispro (Humalog) 100 Unit/1 Ml Cartridge, 0-8 UNIT SQ Q6 02/15/17 Clonazepam* (Clonazepam*) 1 Mg Tablet, 1 MG PO BID, TAB 02/15/17 Cyanocobalamin* (Vitamin B-12*) 1,000 Mcg Tablet.sa, 1000 MCG PO DAILY, TAB 02/15/17 Famotidine* (Famotidine*) 20 Mg Tablet, 20 MG PO BID, #60 TAB 02/15/17 Ibuprofen* (Ibuprofen*) 600 Mg Tablet, 600 MG PO Q8, TAB 01/03/17 Metformin HCl (Metformin HCl ER) 500 Mg Lcizzlw20g, 500 MG PO BID, TAB 10/05/16 Clonidine Hcl* (Clonidine Hcl*) 0.1 Mg Tab, 0.1 MG PO BID, TAB hold for SBP <110, HR <65 08/16/16 Discontinued Reported Medications Acetaminophen (Acetaminophen) 650 Mg Supp.rect, 650 MG PO Q4 Y for PAIN OR TEMP ABOVE 38C, SUPP.RECT 02/15/17 Aspirin (Aspirin) 81 Mg Chew, 81 MG PO DAILY, TAB.CHEW 02/15/17 Finasteride* (Finasteride*) 5 Mg Tablet, 5 MG PO DAILY, TAB 08/16/16 Hydromorphone Hcl* (Hydromorphone Hcl*) 4 Mg Tablet, 4 MG PO Q4 Y for PAIN, TAB 08/16/16 Discontinued Scripts [Trimethoprim/Sulfamethox (Ds)] 1 TAB TAB No Conflict Check, 1 TAB PO BID for Osteomyelitis , #100 Prov:ANGELITO GOODWIN MD 01/09/17 Ciprofloxacin Hcl* (Ciprofloxacin Hcl*) 500 Mg Tablet, 500 MG PO BID@ for Osteomyelitis, #72 TAB Prov:ANGELITO GOODWIN MD 01/09/17 Primary Care Provider Allison Cabrera Time spent on discharge: > 30 minutes Pending Labs Laboratory Tests Test 02/17/17 06:57 02/17/17 07:58 White Blood Count 7.610^3/ul (4.8-10.8) Red Blood Count 3.5510^6/ul (4.70-6.10) Hemoglobin 11.3g/dl (14.0-18.0) Hematocrit 33.1% (42.0-52.0) Mean Corpuscular Volume 93.2fl (82.0-101.0) Mean Corpuscular Hemoglobin 31.8pg (29.0-33.0) Mean Corpuscular Hemoglobin Concent 34.1g/dl (32.0-37.0) Red Cell Distribution Width 13.7% (11.5-14.5) Platelet Count 29956^3/UL (140-415) Mean Platelet Volume 9.0fl (7.4-10.4) Neutrophils % 74.6% (39.0-77.0) Lymphocytes % 14.6% (15.0-51.0) Monocytes % 8.5% (0.0-11.0) Eosinophils % 1.3% (0.0-7.0) Basophils % 0.3% (0.0-2.0) Nucleated Red Blood Cells % 0.0/100WBC (0.0-0.0) Neutrophils # 5.710^3/ul (1.6-7.5) Lymphocytes # 1.110^3/ul (0.8-2.9) Monocytes # 0.710^3/ul (0.3-0.9) Eosinophils # 0.110^3/ul (0.0-0.5) Basophils # 0.010^3/ul (0.0-0.1) Nucleated Red Blood Cells # 0.010^3/ul (0.0-0.0) Sodium Level 136mmol/L (135-144) Potassium Level 4.2mmol/L (3.5-5.1) Chloride Level 102mmol/L (97-110) Carbon Dioxide Level 27mmol/L (21-31) Anion Gap 11 (8-16) Blood Urea Nitrogen 20mg/dl (7-20) Creatinine 1.24mg/dl (0.61-1.24) Glucose Level 100mg/dl (70-220) Calcium Level 9.0mg/dl (8.4-10.2) Bedside Glucose 99mg/dL (70-220) RAMON TROTTER Feb 17, 2017 14:31
[2017-02-17] MEDS ORDERED: MAGNESIUM SULFATE 3 GM in SOD CHLORIDE 0.9% 100 ML IVPB ONE (16:00)
[2017-02-17] MEDS: AMITRIPTYLINE 50 MG TAB PO SCH (20:54)
[2017-02-17] MEDS: ZOLPIDEM 5 MG TAB PO PRN (21:00)
[2017-02-18] VITALS: PULSE 53; PULSE 54
[2017-02-18 00:44] VITALS: BP 121/63; RESP 16
[2017-02-18 04:00] VITALS: BP 138/87; RESP 16
[2017-02-18 04:14] VITALS: PULSE 53
[2017-02-18 08:07] VITALS: BP 133/60; RESP 20
[2017-02-18 08:12] VITALS: PULSE 56
[2017-02-18] MEDS: metFORMIN 500 MG TAB PO SCH (09:07)
[2017-02-18] MEDS: clonAZEPAM 0.5 MG TAB PO SCH (09:08)
[2017-02-18] MEDS: ASPIRIN (EC) 81 MG TAB PO SCH (09:08)
[2017-02-18] MEDS: FINASTERIDE 5 MG TAB PO SCH (09:08)
[2017-02-18] MEDS: FAMOTIDINE 20 MG TAB PO SCH (09:08)
[2017-02-18] MEDS: LISINOPRIL 10 MG TAB PO SCH (09:09)
[2017-02-18] MEDS: HYDROCODONE/APAP (10/325) TAB PO PRN (09:16)
[2017-02-18] MEDS: ENOXAPARIN 40 MG/0.4 ML SYG SC SCH (09:20)
== END 2017-02-18 11:54 | disposition home or self-care (01) | DRG 558 ==
LOC: MS4 23:58
PROVIDERS: ADMIT Hospitalist; ATTEND Hospitalist
PROC: 02HV33Z Insertion of Infusion Device into Superior Vena Cava, Percutaneous Approach (ICD-10-PCS; principal; 2017-02-16)
DX: M62.82 Rhabdomyolysis (principal); N17.9 Acute kidney failure, unspecified; I50.22 Chronic systolic (congestive) heart failure; I10 Essential (primary) hypertension; F15.10 Other stimulant abuse, uncomplicated; F11.10 Opioid abuse, uncomplicated; F14.10 Cocaine abuse, uncomplicated; F32.9 Major depressive disorder, single episode, unspecified; F17.200 Nicotine dependence, unspecified, uncomplicated; E11.9 Type 2 diabetes mellitus without complications; N40.0 Benign prostatic hyperplasia without lower urinary tract symptoms; G89.29 Other chronic pain; Z87.2 Personal history of diseases of the skin and subcutaneous tissue; Z59.0 Homelessness; Z79.82 Long term (current) use of aspirin; Z79.4 Long term (current) use of insulin
CPT/HCPCS: 36569; 71010; 76937; 80048; 80076; 80307; 82550; 82553; 82962; 83036; 83735; 84443; 84484; 85025; 85610; 85730; 87081; 93306; 93971; J1650; J3475; J7030

== ENCOUNTER 2017-03-09 07:45 | Emergency (ER) | payer BC ==
[~2017-03-09] VITALS: Wt 110.0 kg
[~2017-03-09 07:45] MED LIST changes: -CIPR500T4 PO; +CLON1TAB3 PO; +CYAN100080 PO; +FAMO20TA18 PO; +FOLI-49 PO; -HYDR4TAB PO; +INSU100C SQ; +MULTI PO; +THIA100T10 PO; -Trimethoprim/Sulfamethox (Ds) PO
--- NOTE | 2017-03-09 08:20 | ERD ---
ER Documentation Chief Complaint Date/Time DATE: 03/09/17 TIME: 08:14 Chief Complaint R BIG TOE PAIN HPI 56 yo male with a history of diabetes comes in with right-sided great toe pain and swelling over the last 6 weeks worsened over the last 1-2 weeks. Patient states that he has not had any trauma or fevers or chills and describes diffuse pain that is achy, moderate severe on the toe. It has become increasingly more swollen, red and tender. ROS All systems reviewed and are negative except as per history of present illness. Medications Home Meds Active Scripts Tramadol HCl (Tramadol HCl) 50 Mg Tablet, 50 MG PO Q4 Y for PAIN, #20 TAB Prov:JOHNATHAN TRINIADD PA-C 03/09/17 Sulfamethoxazole/Trimethoprim* (Bactrim Ds* Tablet) 1 Each Tablet, 1 TAB PO BID , #14 TAB Prov:JOHNATHAN TRINIDAD PA-C 03/09/17 Cephalexin* (Keflex*) 500 Mg Capsule, 500 MG PO QID for 7 Days, CAP Prov:JOHNATHAN TRINIDAD PA-C 03/09/17 Silver Sulfadiazine* (Thermazene*) 1%-50 gm Cream..g., 1 APPLIC TOP BID, #1 JAR Prov:JOHNATHAN TRINIDAD PA-C 03/09/17 Aspirin* (Aspirin* EC) 81 Mg Tablet.dr, 81 MG PO DAILY, #30 TAB 1 Refill Prov:RAMON TROTTER S. 02/17/17 Amitriptyline Hcl* (Amitriptyline Hcl*) 100 Mg Tablet, 100 MG PO QHS, #30 TAB 2 Refills Prov:RAMON TROTTER S. 02/17/17 Carvedilol* (Coreg*) 3.125 Mg Tablet, 3.125 MG PO DAILY, #60 TAB 2 Refills Prov:RAMON TROTTER S. 02/17/17 Lisinopril* (Lisinopril*) 10 Mg Tablet, 10 MG PO DAILY, #30 TAB 2 Refills Prov:RAMON TROTTER S. 02/17/17 Finasteride* (Finasteride*) 5 Mg Tablet, 5 MG PO DAILY, #30 TAB 2 Refills Prov:RAMON TROTTER S. 02/17/17 Folic Acid* (Folic Acid*) 1 Mg Tablet, 1 MG PO DAILY, #30 TAB 2 Refills Prov:RAMON TROTTER S. 02/17/17 Thiamine* (Thiamine*) 100 Mg Tablet, 100 MG PO DAILY, #30 TAB 2 Refills Prov:RAMON TROTTER S. 02/17/17 Multivitamins* (Theragran*) 1 Tab Tab, 1 TAB PO DAILY, #30 TAB 2 Refills Prov:ESPERANZA TROTTERP S. 02/17/17 Hydromorphone Hcl* (Dilaudid*) 2 Mg Tablet, 2 MG PO Q8H Y for SEVERE PAIN LEVEL 7-10, #40 TAB Prov:ANGELITO GOODWIN MD 01/09/17 Metoclopramide* (Reglan*) 10 Mg Tablet, 10 MG PO Q6H Y for NAUSEA AND OR VOMITING, #30 TAB Prov:ANGELITO GOODWIN MD 01/09/17 Reported Medications Insulin Lispro (Humalog) 100 Unit/1 Ml Cartridge, 0-8 UNIT SQ Q6 02/15/17 Clonazepam* (Clonazepam*) 1 Mg Tablet, 1 MG PO BID, TAB 02/15/17 Cyanocobalamin* (Vitamin B-12*) 1,000 Mcg Tablet.sa, 1000 MCG PO DAILY, TAB 02/15/17 Famotidine* (Famotidine*) 20 Mg Tablet, 20 MG PO BID, #60 TAB 02/15/17 Ibuprofen* (Ibuprofen*) 600 Mg Tablet, 600 MG PO Q8, TAB 01/03/17 Metformin HCl (Metformin HCl ER) 500 Mg [id number], 500 MG PO BID, TAB 10/05/16 Clonidine Hcl* (Clonidine Hcl*) 0.1 Mg Tab, 0.1 MG PO BID, TAB hold for SBP <110, HR <65 08/16/16 Allergies Allergies: Coded Allergies: No Known Allergy (Unverified , 01/03/17) PMhx/Soc History of Surgery: No Anesthesia Reaction: No Hx Neurological Disorder: Yes (SEIZURE) Hx Respiratory Disorders: No Hx Cardiac Disorders: Yes (CHF, HTN) Hx Psychiatric Problems: Yes (DEPRESSION) Hx Miscellaneous Medical Probl: Yes (COCAINE ABUSE, MRSA NARES, DIABETES) Hx Alcohol Use: No Hx Substance Use: Yes (COCAINE) Hx Tobacco Use: Yes (2 Cigarettes per day) Smoking Status: Current every day smoker Physical Exam Vitals Vital Signs Date Time Temp Pulse Resp B/P Pulse Ox O2 Delivery O2 Flow Rate FiO2 03/09/17 07:49 98.0 65 18 153/81 99 Physical Exam General: Patient is not in any acute distress, disheveled in appearance HEENT: Head is normocephalic, atraumatic. No scleral icterus. Neck: Supple. Nontender. Lungs: Clear to auscultation. Normal air movement. Heart: Regular rate and rhythm. S1 and S2 are normal. No murmurs, gallops, or rubs. Abdomen: Soft, nontender, nondistended. Bowel sounds are normoactive. Extremities: right great toe is swollen, erythematous, tender, nail is intact, capillary refill less than 2 seconds. Superficial ulceration at the bottom of the toe. Neurologic: Alert and oriented 3. No focal deficits. Skin: Normal turgor. No rash or lesions. Result Diagram: 03/09/1792403/09/1725 Results 24 hrs Laboratory Tests Test 03/09/17 09:25 White Blood Count 5.910^3/ul Red Blood Count 3.7110^6/ul Hemoglobin 11.6g/dl Hematocrit 34.4% Mean Corpuscular Volume 92.7fl Mean Corpuscular Hemoglobin 31.3pg Mean Corpuscular Hemoglobin Concent 33.7g/dl Red Cell Distribution Width 13.1% Platelet Count 89828^3/UL Mean Platelet Volume 9.3fl Neutrophils % 67.1% Lymphocytes % 22.3% Monocytes % 6.5% Eosinophils % 2.9% Basophils % 0.7% Nucleated Red Blood Cells % 0.0/100WBC Neutrophils # 4.010^3/ul Lymphocytes # 1.310^3/ul Monocytes # 0.410^3/ul Eosinophils # 0.210^3/ul Basophils # 0.010^3/ul Nucleated Red Blood Cells # 0.010^3/ul Erythrocyte Sedimentation Rate 28mm/Hr Prothrombin Time 13.3Sec Prothrombin Time Ratio 1.0 INR International Normalized Ratio 1.01 Activated Partial Thromboplast Time 28.7Sec Sodium Level 142mmol/L Potassium Level 4.0mmol/L Chloride Level 103mmol/L Carbon Dioxide Level 24mmol/L Anion Gap 19 Blood Urea Nitrogen 23mg/dl Creatinine 0.97mg/dl Glucose Level 95mg/dl Calcium Level 8.9mg/dl C-Reactive Protein 0.9mg/dl Current Medications Medications (Trade) Dose Ordered Sig/Paulo Route PRN Reason Start Time Stop Time Status Last Admin Dose Admin Acetaminophen/ Hydrocodone Bitart ([place] (5/325)) 1 tab ONCE ONCE PO 03/09/17 08:30 03/09/17 08:31 DC 03/09/17 08:27 Ketorolac Tromethamine (Toradol) 30 mg ONCE STAT IV 03/09/17 08:47 03/09/17 08:52 DC Ketorolac Tromethamine (Toradol) 30 mg ONCE STAT IM 03/09/17 08:51 03/09/17 08:52 DC DIAGNOSTIC IMAGING REPORT Patient: MALKA YATES : 1960 Age: 56 Sex: M MR #: [id number] DOS: 03/09/1706 Ordering MD: JOHNATHAN TRINIDAD PA-C Location: [facility] Room/Bed: PROCEDURE: XR Great Toe. CLINICAL INDICATION: Right great toe pain x 1 month TECHNIQUE: Two views of the right great toe are available for review COMPARISON: No prior studies are available for comparison. FINDINGS: There is normal mineralization and alignment of the bones of the great toe. No fracture or dislocation is identified. Joint spaces are well maintained. The soft tissues are within normal limits. IMPRESSION: 1. Unremarkable right great toe x-ray series. RPTAT: KK .Mauri Shea MD, Date Time Electronically viewed and signed by .Mauri Shea MD, MD on 2016 08:34 .B/ CC: JOHNATHAN TRINIDAD PA-C Procedures/MDM 56-year-old male comes in with right great toe pain, consistent with cellulitis. Patient's labs do not show evidence of osteomyelitis, ESR is very mildly elevated CRP is normal. X-ray was negative for osteomyelitis, and suspicion for osteomyelitis is low at this time given the patient's unremarkable laboratory work today. The wound care nurses from the amputation prevention center came and evaluated the patient, appropriate wound care was done. I have looked at the patient's toe as well with my attending physician Dr. Norris who agrees that the patient is stable for outpatient management with p.o. antibiotics and follow-up with APC. Patient's blood pressure was elevated (>120/80) but appears stable without evidence of hypertension emergency or urgency. The patient was counseled about the risks of hypertension and urged to pursue outpatient monitoring and therapy within a week with their primary care physician. The case was reviewed and discussed with Dr. Norris who agrees with the plan of care including labs, treatment, and advanced imaging as appropriate. Departure Diagnosis: Primary Impression: Cellulitis, toe Condition: Good JOHNATHAN TRINIADD PA-C Mar 09, 2017 08:20
[2017-03-09] MEDS ORDERED: HYDROCODONE/APAP (5/325) TAB PO ONE (08:30)
--- NOTE | 2017-03-09 08:34 | RADRPT ---
PROCEDURE: XR Great Toe. CLINICAL INDICATION: Right great toe pain x 1 month TECHNIQUE: Two views of the right great toe are available for review COMPARISON: No prior studies are available for comparison. FINDINGS: There is normal mineralization and alignment of the bones of the great toe. No fracture or dislocat ion is identified. Joint spaces are well maintained. The soft tissues are within normal limits. IMPRESSION: 1. Unremarkable right great toe x-ray series. RPTAT: KK .Mauri Shea MD, Date Time Electronically viewed and signed by .Mauri Shea MD, on 03/09/2017 08:34 .B/
[2017-03-09] MEDS ORDERED: KETOROLAC 30 MG INJ IV STA (08:47)
[2017-03-09] MEDS ORDERED: KETOROLAC 30 MG INJ IM STA (08:51)
[2017-03-09 09:49] LABS: BASOPHILS % 0.7 % (0.0-2.0); EOSINOPHILS # 0.2 10^3/ul (0.0-0.5); EOSINOPHILS % 2.9 % (0.0-7.0); HEMATOCRIT 34.4 % (42.0-52.0); HEMOGLOBIN 11.6 g/dl (14.0-18.0); LYMPHOCYTES # 1.3 10^3/ul (0.8-2.9); LYMPHOCYTES % 22.3 % (15.0-51.0); MEAN CORPUSCULAR HEMOGLOBIN 31.3 pg (29.0-33.0); MEAN CORPUSCULAR HGB CONC 33.7 g/dl (32.0-37.0); MEAN CORPUSCULAR VOLUME 92.7 fl (82.0-101.0); MEAN PLATELET VOLUME 9.3 fl (7.4-10.4); MONOCYTE # 0.4 10^3/ul (0.3-0.9); MONOCYTES % 6.5 % (0.0-11.0); NEUTROPHILS % 67.1 % (39.0-77.0); PLATELET COUNT 295 10^3/UL (140-415); RED BLOOD COUNT 3.71 10^6/ul (4.70-6.10); RED CELL DISTRIBUTION WIDTH 13.1 % (11.5-14.5); WHITE BLOOD COUNT 5.9 10^3/ul (4.8-10.8)
[2017-03-09 10:12] LABS: INR 1.01; PROTIME 13.3 Sec (12.2-14.2)
[2017-03-09 10:13] LABS: PARTIAL THROMBOPLASTIN TIME 28.7 Sec (25.0-35.0)
[2017-03-09 10:18] LABS: C-REACTIVE PROTEIN 0.9 mg/dl (0.0-0.9); CALCIUM 8.9 mg/dl (8.4-10.2); CREATININE 0.97 mg/dl (0.61-1.24)
[2017-03-09] MEDS ORDERED: SLSL1C50 TOP (12:18)
[2017-03-09] MEDS ORDERED: CEPH-443 PO (12:20)
[2017-03-09] MEDS ORDERED: TRAM50TA2 PO (12:20)
[2017-03-09] MEDS ORDERED: SULF1TAB31 PO (12:20)
== END 2017-03-09 12:30 | disposition home or self-care (01) ==
LOC: FTE 07:45
DX: L03.031 Cellulitis of right toe (principal); E11.9 Type 2 diabetes mellitus without complications; I10 Essential (primary) hypertension; I50.9 Heart failure, unspecified; F17.210 Nicotine dependence, cigarettes, uncomplicated; Z79.4 Long term (current) use of insulin; Z79.84 Long term (current) use of oral hypoglycemic drugs; Z79.82 Long term (current) use of aspirin
CPT/HCPCS: 73660; 80048; 85025; 85610; 85651; 85730; 86140; J1885; Z7610

== ENCOUNTER 2017-03-20 03:43 | Inpatient (IN) | payer BC ==
[~2017-03-20] VITALS: Ht 185.4 cm; Wt 104.8 kg
[~2017-03-20 03:43] MED LIST changes: +CEPH-443 PO; +SLSL1C50 TOP; +SULF1TAB31 PO; +TRAM50TA2 PO
[2017-03-20] MEDS ORDERED: GABA-528 PO (04:18)
[2017-03-20 04:20] VITALS: Ht 185.4 cm; Wt 104.8 kg
[2017-03-20 04:42] VITALS: BP 150/85; PULSE 73; RESP 20
[2017-03-20] MEDS ORDERED: ONDANSETRON 4 MG INJ IV PRN (05:30)
[2017-03-20] MEDS ORDERED: HYDROCODONE/APAP (5/325) TAB PO PRN (05:30)
[2017-03-20] MEDS ORDERED: NACL 0.9% 3 ML SYG IV SCH (05:30)
[2017-03-20] MEDS ORDERED: HEPARIN 5,000 UNIT/0.5 ML VIAL SC SCH (06:00)
[2017-03-20] MEDS ORDERED: PANTOPRAZOLE 40 MG INJ IV SCH (06:00)
[2017-03-20 06:06] LABS: BASOPHILS % 0.5 % (0.0-2.0); EOSINOPHILS # 0.2 10^3/ul (0.0-0.5); EOSINOPHILS % 2.4 % (0.0-7.0); HEMATOCRIT 32.7 % (42.0-52.0); HEMOGLOBIN 10.7 g/dl (14.0-18.0); LYMPHOCYTES # 1.4 10^3/ul (0.8-2.9); LYMPHOCYTES % 22.7 % (15.0-51.0); MEAN CORPUSCULAR HEMOGLOBIN 30.7 pg (29.0-33.0); MEAN CORPUSCULAR HGB CONC 32.7 g/dl (32.0-37.0); MEAN PLATELET VOLUME 9.3 fl (7.4-10.4); MONOCYTE # 0.4 10^3/ul (0.3-0.9); MONOCYTES % 6.5 % (0.0-11.0); NEUTROPHIL # 4.2 10^3/ul (1.6-7.5); NEUTROPHILS % 67.6 % (39.0-77.0); PLATELET COUNT 252 10^3/UL (140-415); RED BLOOD COUNT 3.48 10^6/ul (4.70-6.10); RED CELL DISTRIBUTION WIDTH 14.7 % (11.5-14.5); WHITE BLOOD COUNT 6.2 10^3/ul (4.8-10.8)
[2017-03-20 06:43] LABS: ALBUMIN 3.7 g/dl (3.3-4.9); ALBUMIN/GLOBULIN RATIO 1.19; BILIRUBIN,INDIRECT 0.4 mg/dl (0-1.1); BILIRUBIN,TOTAL 0.4 mg/dl (0.2-1.3); CHOL/HDL RATIO 3.7 RATIO; CREATININE 0.98 mg/dl (0.61-1.24); MAGNESIUM 1.3 mg/dl (1.7-2.5); POTASSIUM 4.4 mmol/L (3.5-5.1); TOTAL PROTEIN 6.8 g/dl (6.1-8.1)
[2017-03-20 07:12] LABS: THYROID STIMULATING HORMONE 2.73 MIU/L (0.465-4.680)
--- NOTE | 2017-03-20 10:18 | QN ---
Documentation Comment Pt was transferred from [place] for further evaluation of foot infection concerning for OM/septic arthritis. I was contacted by RN at 930AM that pt stated he wanted to leave the hospital AMA as he had personal business to attend to. I discussed with patient that the concern was pt has a potentially life threatening infection in his foot which if left untreated could result in permanent damage to his foot/limb, or even . Pt again stated he had personal business to attend to. This conversation was witness by the RN and social work associate as well. Pt completed AMA form in my presence. Of note, pt requesting refills on his chronic pain meds (soma/dilaudid) stating he had misplaced his prescription or that they had been stolen. CURES data reviewed. Pt appears to have picked up 1 month supply of his soma/Dilaudid on February 19. I advised pt to discuss this matter with the physician writing his chronic pain meds (Dr Gary Sherman) and security departments at both [facility] and [facility]. TIRSO CHILDERS MD Mar 20, 2017 10:18
== END 2017-03-20 10:50 | disposition left against medical advice (07) | DRG 603 ==
LOC: MS2 03:43
PROVIDERS: ADMIT Family Medicine; ATTEND Family Medicine
DX: L08.9 Local infection of the skin and subcutaneous tissue, unspecified (principal)
CPT/HCPCS: 80053; 80061; 83036; 83735; 84443; 85025

== ENCOUNTER 2017-03-21 18:48 | Inpatient (IN) | payer BC ==
[~2017-03-21] VITALS: Ht 182.9 cm; Wt 105.9 kg
[~2017-03-21 18:48] MED LIST changes: -CEPH-443 PO; -CYAN100080 PO; -FAMO20TA18 PO; -FOLI-49 PO; +GABA-528 PO; -IBUP-1542 PO; -INSU100C SQ; -METO10TA92 PO; -MULTI PO; -SLSL1C50 TOP; -SULF1TAB31 PO; -THIA100T10 PO; -TRAM50TA2 PO
[2017-03-21 22:00] VITALS: BP 131/74; PULSE 85; RESP 16
[2017-03-21] MEDS ORDERED: SOD CHLORIDE 0.9% 1,000 ML IV SCH (23:14)
[2017-03-21] MEDS ORDERED: NACL 0.9% 3 ML SYG IV SCH (23:30)
[2017-03-21] MEDS ORDERED: ACETAMINOPHEN 325 MG TAB PO PRN (23:30)
[2017-03-21] MEDS ORDERED: ONDANSETRON 4 MG INJ IV PRN (23:30)
[2017-03-21] MEDS ORDERED: KETOROLAC 30 MG INJ IV PRN (23:30)
[2017-03-22 02:42] VITALS: BP 132/81; RESP 16
[2017-03-22] MEDS ORDERED: VANCOMYCIN IV PER PHARMACY XX SCH (05:30)
--- NOTE | 2017-03-22 05:47 | HP ---
Date/Time of Note Date/Time of Note DATE: 03/22/17 TIME: 05:26 Assessment/Plan VTE Prophylaxis VTE Prophylaxis Intervention: SCD's Lines/Catheters IV [facility]ter [facility]from [facility] Saline Lock Assessment/Plan Chief Complaint/Hosp Course This is a 56-year-old male being admitted to the [facility] floor for: #1 Suspected medication overdose: Patient was unresponsive and was was found to have pill bottle with Dilaudid and Soma outside [facility] via EMS. Patient was given Narcan in the ED at [facility] and responded well. At the current time patient continues to be somnolent however is easily arousable and does answer questions however he is not very cooperative in providing any details he also does not recall some of the details. Current time we will continue to monitor the patient. Will hold off on any sedating medications and narcotic medications at this time. Continue to monitor the patient. Will also obtain a CT of the head as the patient was found unresponsive by EMS. #2 suspected osteomyelitis: Patient has a previous history of being admitted for osteomyelitis of the right foot. At the current time patient is afebrile and has normal white blood cell count based on blood work from [facility]. However at the current time will start the patient on vancomycin and Levaquin. Will obtain an MRI. We will have ID consult. Will obtain podiatry consultation. #3 history of CHF: At the current time patient does not appear to be in any acute exacerbation and no sign of any volume overload. Will continue home medications. #4 high blood pressure: We will continue patient's home medication #5 chronic pain: At the current time will hold off on any pain medications and muscle relaxers as patient is somnolent and recently had an overdose. Will resume as indicated with caution as to patient's previous overdose history. #6 history of drug overdose multi-substance abuse: Patient has a previous history of using cocaine and amphetamine Rushing tobacco and alcohol and narcotic medications. At the current time will need to be cautious regarding patient's pain medication secondary to his overdose. #7 Acute kidney injury: Creatinine is 1.37 with the previous one 2 days ago being 0.8. This likely prerenal etiology. Will provide IV fluid hydration. #8 DVT and GI prophylaxis: SCDs, acid markel Further treatment strategy will be employed as per the clinical course Problems: HPI/ROS Admit Date/Time Admit Date/Time Mar 21, 2017 at 21:14 Hx of Present Illness Chief complaint: Opiate overdose, osteomyelitis This is a 56-year-old male who was transferred from [facility] for opiate overdose and osteomyelitis. Patient originally was transferred to [facility] on 03/20 2017 for workup for osteomyelitis however patient left AMA, please see previous hospitalization report. Today the patient was taken to [facility] with altered mental status. He was brought to the ED via EMS services. Patient was reportedly found fallen outside of [facility] , no head injury, had pinpoint pupils and altered mental status. His pill bottle with Soma and Dilaudid were found with him. Patient sees an outpatient pain management doctor for his Soma and Dilaudid. At [facility] he was given treatment with Narcan and subsequently was arousable. Upon my exam today after patient arrived at [facility], he was somnolent yet easily arousable. He denied knowing the earlier events of the day. Patient is not in any acute distress complaining of pain. Patient history was obtained from previous EMR records as patient himself was not very cooperative in my examination. Allergies: NKDA Medications: See MAR ROS Subjective hx not possible: other (Somnolent, yet arousable. Not cooperative in examination.) PMH/Family/Social Past Medical History High blood pressure Depression BPH Chronic pain CHF History of cellulitis and osteomyelitis Hx of Narcotic overdose and narcotic seeking behaviour Hx of intracardiac clot s/p coumadin therapy Social History Smoking Status: Current some day smoker Exam/Review of Systems Vital Signs Vitals Vital Signs Date Time Temp Pulse Resp B/P Pulse Ox O2 Delivery O2 Flow Rate FiO2 03/22/17 02:42 98.0 74 16 132/81 92 03/21/17 22:00 Room Air Intake and Output 03/21/17 03/21/17 03/22/17 15:00 23:00 07:00 Intake Total 150 ml Balance 150 ml Exam Exam General: Patient is lying in bed in no acute distress, somnolent, easily arousable HEENT: Atraumatic, normocephalic. The pupils are equal, round and reactive. Extraocular motor are intact, poor dentition Neck: Supple with full range of motion. No rigidity or meningismus Chest: Nontender Lungs: Clear to auscultation bilaterally no crackles rales or wheezing Heart: Normal S1-S2, Regular rhythm and rate. No murmur, S3, or S4 Abdomen: Soft , nontender, nondistended , bowel sounds are present. No guarding no rebound tenderness , No masses or organomegaly. No costovertebral temporal angle mass Extremities: Bilateral lower extremity venous stasis dermatitis, right great toe swollen, no cellulitis no erythema. Left elbow olecranon bursa swelling, not no erythema or tenderness good range of motion Neurologic: Normal mental status, speech normal, cranial nerves II through XII are intact, motor and sensory are intact, no focal weakness Additional Comments X-ray right foot: Suspicious for septic arthritis and osteomyelitis please see x -ray from 03/20/2017 from [facility]. Pertinent vitals from transfer facility [facility]: Vitals BP 137/95, respiratory rate 16, SPO2 95% on room air heart rate 93 CBC: White blood cell count 7.9 hemoglobin 12.2 hematocrit 36.5 platelets 286 BMP: Sodium 140 potassium 4.4 chloride 106 CO2 25 glucose 124 BUN 21 creatinine 1.37 EGFR 54 Ethanol less than 5 chest x-ray: Elevated right hemidiaphragm with right basilar atelectasis Medications Medications Current Medications Sodium Chloride (NS) 1,000 ml @ 80 mls/hr [id number] IV Last administered on t 23:47; Admin Dose 80 MLS/HR; Start 03/21/17 at 23:14 Ondansetron HCl (Zofran Inj) 4 mg Q6H PRN IV NAUSEA AND/OR VOMITING; Start 03/21 at 23:30 Acetaminophen (Tylenol Tab) 650 mg Q6H PRN PO PAIN LEVEL 1-3 OR FEVER; Start at 23:30 Pantoprazole (Protonix Tab) 40 mg DAILY@06 PO ; Start 03/22/17 at 06:00 Ketorolac Tromethamine (Toradol) 30 mg Q6H PRN IV PAIN; Start 03/21/17 at 23:30 ; Stop 03/22/17 at 23:29 OWEN DUNOG Mar 22, 2017 05:36
[2017-03-22] MEDS ORDERED: LEVOFLOXACIN 750MG/D5W (PMX) 150 ML IVPB SCH (06:00)
[2017-03-22] MEDS ORDERED: PANTOPRAZOLE (EC) 40 MG TAB PO SCH (06:00)
[2017-03-22 06:32] LABS: BASOPHILS % 0.6 % (0.0-2.0); EOSINOPHILS # 0.1 10^3/ul (0.0-0.5); EOSINOPHILS % 2.6 % (0.0-7.0); HEMOGLOBIN 10.1 g/dl (14.0-18.0); LYMPHOCYTES # 1.2 10^3/ul (0.8-2.9); LYMPHOCYTES % 23.4 % (15.0-51.0); MEAN CORPUSCULAR HEMOGLOBIN 31.3 pg (29.0-33.0); MEAN CORPUSCULAR HGB CONC 32.6 g/dl (32.0-37.0); MEAN PLATELET VOLUME 8.5 fl (7.4-10.4); MONOCYTE # 0.4 10^3/ul (0.3-0.9); MONOCYTES % 8.1 % (0.0-11.0); NEUTROPHIL # 3.2 10^3/ul (1.6-7.5); NEUTROPHILS % 65.1 % (39.0-77.0); PLATELET COUNT 214 10^3/UL (140-415); RED BLOOD COUNT 3.23 10^6/ul (4.70-6.10); RED CELL DISTRIBUTION WIDTH 14.5 % (11.5-14.5)
[2017-03-22 06:55] LABS: ALBUMIN 3.1 g/dl (3.3-4.9); ALBUMIN/GLOBULIN RATIO 1.1; BILIRUBIN,INDIRECT 0.2 mg/dl (0-1.1); BILIRUBIN,TOTAL 0.2 mg/dl (0.2-1.3); CALCIUM 8.4 mg/dl (8.4-10.2); CREATININE 0.97 mg/dl (0.61-1.24); MAGNESIUM 1.5 mg/dl (1.7-2.5); TOTAL PROTEIN 5.9 g/dl (6.1-8.1)
[2017-03-22 07:01] LABS: CHOL/HDL RATIO 3.4 RATIO; PHOSPHORUS 3.3 mg/dl (2.5-4.9)
[2017-03-22 07:05] LABS: CK-MB 14.8 ng/ml (0.0-2.4); TROPONIN-I 0.017 ng/ml (0.00-0.12)
[2017-03-22 07:33] LABS: THYROID STIMULATING HORMONE 2.07 MIU/L (0.465-4.680)
[2017-03-22 07:55] LABS: POTASSIUM 4.3 mmol/L (3.5-5.1)
[2017-03-22] MEDS ORDERED: VANCOMYCIN 2 GM in SOD CHLORIDE 0.9% 500 ML IVPB ONE (08:00)
[2017-03-22 08:39] VITALS: BP 143/81; RESP 20
--- NOTE | 2017-03-22 10:20 | DS ---
Date/Time of Note Date/Time of Note DATE: 03/22/17 TIME: 10:18 Discharge Summary Admission/Discharge Info Admit Date/Time Mar 21, 2017 at 21:14 Discharge Date/Time Mar 22, 2017 at 10:00 Discharge Diagnosis dilaudid overdose, diabetic foot infection Patient Condition: Guarded Consults none Procedures none Hx of Present Illness Chief complaint: Opiate overdose, osteomyelitis This is a 56-year-old male who was transferred from [facility] for opiate overdose and osteomyelitis. Patient originally was transferred to [facility] on 03/20 2017 for workup for osteomyelitis however patient left AMA, please see previous hospitalization report. Today the patient was taken to [facility] with altered mental status. He was brought to the ED via EMS services. Patient was reportedly found fallen outside of [facility] , no head injury, had pinpoint pupils and altered mental status. His pill bottle with Soma and Dilaudid were found with him. Patient sees an outpatient pain management doctor for his Soma and Dilaudid. At [facility] he was given treatment with Narcan and subsequently was arousable. Upon my exam today after patient arrived at [facility], he was somnolent yet easily arousable. He denied knowing the earlier events of the day. Patient is not in any acute distress complaining of pain. Patient history was obtained from previous EMR records as patient himself was not very cooperative in my examination. Allergies: NKDA Medications: See [facility] Course Plan was MRI foot and podiatry eval. I was called by floor at 10am pt had left AMA. I was notified of his departure after pt had already left therefore I did not have the opportunity to personally discuss risks of leaving prior to further eval. No prescriptions given. Home Meds Active Scripts Aspirin* (Aspirin* EC) 81 Mg Tablet.dr, 81 MG PO DAILY, #30 TAB 1 Refill Prov:RAMON TROTTER S. 02/17/17 Amitriptyline Hcl* (Amitriptyline Hcl*) 100 Mg Tablet, 100 MG PO QHS, #30 TAB 2 Refills Prov:RAMON TROTTER S. 02/17/17 Carvedilol* (Coreg*) 3.125 Mg Tablet, 3.125 MG PO DAILY, #60 TAB 2 Refills Prov:ESPERANZA TROTTERP S. 02/17/17 Lisinopril* (Lisinopril*) 10 Mg Tablet, 10 MG PO DAILY, #30 TAB 2 Refills Prov:RAMON TROTTER S. 02/17/17 Finasteride* (Finasteride*) 5 Mg Tablet, 5 MG PO DAILY, #30 TAB 2 Refills Prov:MARTITA TROTTEREEP S. 02/17/17 Hydromorphone Hcl* (Dilaudid*) 2 Mg Tablet, 2 MG PO Q8H Y for SEVERE PAIN LEVEL 7-10, #40 TAB Prov:ANGELITO GOODWIN MD 01/09/17 Reported Medications Gabapentin* (Gabapentin*) 800 Mg Tablet, 800 MG PO Q8 03/20/17 Clonazepam* (Clonazepam*) 1 Mg Tablet, 1 MG PO BID, TAB 02/15/17 Metformin HCl (Metformin HCl ER) 500 Mg [id number], 500 MG PO BID, TAB 10/05/16 Clonidine Hcl* (Clonidine Hcl*) 0.1 Mg Tab, 0.1 MG PO BID, TAB hold for SBP <110, HR <65 08/16/16 Discontinued Reported Medications Insulin Lispro (Humalog) 100 Unit/1 Ml Cartridge, 0-8 UNIT SQ Q6 02/15/17 Cyanocobalamin* (Vitamin B-12*) 1,000 Mcg Tablet.sa, 1000 MCG PO DAILY, TAB 02/15/17 Famotidine* (Famotidine*) 20 Mg Tablet, 20 MG PO BID, #60 TAB 02/15/17 Ibuprofen* (Ibuprofen*) 600 Mg Tablet, 600 MG PO Q8, TAB 01/03/17 Discontinued Scripts Tramadol HCl (Tramadol HCl) 50 Mg Tablet, 50 MG PO Q4 Y for PAIN, #20 TAB Prov:JOHNATHAN TRINIDAD PA-C 03/09/17 Sulfamethoxazole/Trimethoprim* (Bactrim Ds* Tablet) 1 Each Tablet, 1 TAB PO BID , #14 TAB Prov:JOHNATHAN TRINIDAD PA-C 03/09/17 Cephalexin* (Keflex*) 500 Mg Capsule, 500 MG PO QID for 7 Days, CAP Prov:JOHNATHAN TRINIDAD PA-C 03/09/17 Silver Sulfadiazine* (Thermazene*) 1%-50 gm Cream..g., 1 APPLIC TOP BID, #1 JAR Prov:JOHNATHAN TRINIDAD PA-C 03/09/17 Folic Acid* (Folic Acid*) 1 Mg Tablet, 1 MG PO DAILY, #30 TAB 2 Refills Prov:RAMON TROTTER S. 02/17/17 Thiamine* (Thiamine*) 100 Mg Tablet, 100 MG PO DAILY, #30 TAB 2 Refills Prov:ESPERANZA TROTTERP S. 02/17/17 Multivitamins* (Theragran*) 1 Tab Tab, 1 TAB PO DAILY, #30 TAB 2 Refills Prov:RAMON TROTTER S. 02/17/17 Metoclopramide* (Reglan*) 10 Mg Tablet, 10 MG PO Q6H Y for NAUSEA AND OR VOMITING, #30 TAB Prov:ANGELITO GOODWIN MD 01/09/17 Primary Care Provider Allison Cabrera Time spent on discharge: < 30 minutes Pending Labs Laboratory Tests Test 03/21/17 22:30 03/22/17 06:09 Bedside Glucose 94mg/dL (70-220) White Blood Count 5.010^3/ul (4.8-10.8) Red Blood Count 3.2310^6/ul (4.70-6.10) Hemoglobin 10.1g/dl (14.0-18.0) Hematocrit 31.0% (42.0-52.0) Mean Corpuscular Volume 96.0fl (82.0-101.0) Mean Corpuscular Hemoglobin 31.3pg (29.0-33.0) Mean Corpuscular Hemoglobin Concent 32.6g/dl (32.0-37.0) Red Cell Distribution Width 14.5% (11.5-14.5) Platelet Count 36015^3/UL (140-415) Mean Platelet Volume 8.5fl (7.4-10.4) Neutrophils % 65.1% (39.0-77.0) Lymphocytes % 23.4% (15.0-51.0) Monocytes % 8.1% (0.0-11.0) Eosinophils % 2.6% (0.0-7.0) Basophils % 0.6% (0.0-2.0) Nucleated Red Blood Cells % 0.0/100WBC (0.0-0.0) Neutrophils # 3.210^3/ul (1.6-7.5) Lymphocytes # 1.210^3/ul (0.8-2.9) Monocytes # 0.410^3/ul (0.3-0.9) Eosinophils # 0.110^3/ul (0.0-0.5) Basophils # 0.010^3/ul (0.0-0.1) Nucleated Red Blood Cells # 0.010^3/ul (0.0-0.0) Sodium Level 144mmol/L (135-144) Potassium Level 4.3mmol/L (3.5-5.1) Chloride Level 105mmol/L (97-110) Carbon Dioxide Level 27mmol/L (21-31) Anion Gap 16 (8-16) Blood Urea Nitrogen 17mg/dl (7-20) Creatinine 0.97mg/dl (0.61-1.24) Glucose Level 90mg/dl (70-220) Hemoglobin A1c 5.6% (0-5.9) Calcium Level 8.4mg/dl (8.4-10.2) Phosphorus Level 3.3mg/dl (2.5-4.9) Magnesium Level 1.5mg/dl (1.7-2.5) Total Bilirubin 0.2mg/dl (0.2-1.3) Direct Bilirubin 0.00mg/dl (0.00-0.20) Indirect Bilirubin 0.2mg/dl (0-1.1) Aspartate Amino Transf (AST/SGOT) 71IU/L (15-46) Alanine Aminotransferase (ALT/SGPT) 42IU/L (13-69) Alkaline Phosphatase 61IU/L (42-121) Creatine Kinase 1146IU/L (23-200) Creatine Kinase Index 1.3 Creatinine Kinase MB (Mass) 14.80ng/ml (0.0-2.4) Troponin I 0.017ng/ml (0.00-0.12) Total Protein 5.9g/dl (6.1-8.1) Albumin 3.1g/dl (3.3-4.9) Globulin 2.80g/dl (1.3-3.2) Albumin/Globulin Ratio 1.10 Triglycerides Level 61mg/dl (0-149) Cholesterol Level 158mg/dl (100-200) LDL Cholesterol, Calculated 100mg/dl HDL Cholesterol 46mg/dl (28-71) Cholesterol/HDL Ratio 3.4RATIO Thyroid Stimulating Hormone (TSH) 2.070MIU/L (0.465-4.680) TIRSO CHILDERS MD Mar 22, 2017 10:20
[2017-03-22] MEDS ORDERED: VANCOMYCIN 1.5 GM in SOD CHLORIDE 0.9% 250 ML IVPB SCH (20:00)
== END 2017-03-22 10:00 | disposition left against medical advice (07) | DRG 918 ==
LOC: MS2 21:14
PROVIDERS: ADMIT Internal Medicine; ATTEND Internal Medicine
DX: T40.2X1A Poisoning by other opioids, accidental (unintentional), initial encounter (principal); N17.9 Acute kidney failure, unspecified; E11.69 Type 2 diabetes mellitus with other specified complication; I50.9 Heart failure, unspecified; F17.200 Nicotine dependence, unspecified, uncomplicated; G89.29 Other chronic pain; L08.9 Local infection of the skin and subcutaneous tissue, unspecified; R40.0 Somnolence; R03.0 Elevated blood-pressure reading, without diagnosis of hypertension; Y92.89 Other specified places as the place of occurrence of the external cause; Z86.718 Personal history of other venous thrombosis and embolism; Z79.84 Long term (current) use of oral hypoglycemic drugs
CPT/HCPCS: 80053; 80061; 82550; 82553; 82962; 83036; 83735; 84100; 84443; 84484; 85025; J1956; J3370; J7030; J7040; J7050

== ENCOUNTER 2017-04-15 04:14 | Inpatient (IN) | payer BC ==
[2017-04-15] VITALS (12 sets, daily range): BP systolic 140–186; BP diastolic 80–116; PULSE 66–94; RESP 17–20; Ht 182.9 cm; Wt 101.7 kg
[~2017-04-15] VITALS: Ht 182.9 cm; Wt 101.7 kg
[2017-04-15] MEDS ORDERED: ACETAMINOPHEN 325 MG TAB PO PRN (07:30)
[2017-04-15] MEDS ORDERED: NACL 0.9% 3 ML SYG IV SCH (07:30)
[2017-04-15] MEDS ORDERED: ONDANSETRON 4 MG INJ IV PRN (07:30)
[2017-04-15] MEDS ORDERED: ALBUTEROL/IPRATROPIUM (NEB) 3 ML AMP HHN PRN (07:30)
[2017-04-15] MEDS ORDERED: DEXTROSE 50% 50 ML SYRINGE IV PRN ×2 (08:00)
[2017-04-15] MEDS ORDERED: GLUCOSE GEL 15 GRAM TUBE PO PRN ×2 (08:00)
[2017-04-15] MEDS ORDERED: GLUCAGON 1 MG INJ IM PRN (08:00)
[2017-04-15] MEDS ORDERED: GLUCOSE GEL 15 GRAM TUBE BUCCAL PRN (08:00)
[2017-04-15] MEDS ORDERED: LORAZEPAM 1 MG TAB PO PRN (08:00)
[2017-04-15] MEDS: INSULIN ASPART [NOVOLOG] 3 ML PEN SC SCH ×4 (08:00→21:00)
--- NOTE | 2017-04-15 08:13 | HP ---
Date/Time of Note Date/Time of Note DATE: 04/15/17 TIME: 07:41 Assessment/Plan VTE Prophylaxis VTE Prophylaxis Intervention: heparin Assessment/Plan Assessment/Plan 1. Shortness of breath, most likely 2/2 CHF exacerbation: pt non-compliant with his meds - Diuresis - 2D-echo - cardiology consult as needed 2. Hx of Type II DM - insulin while in-house 3. Right Great Toe Chronic Ulcer - Obtain MRI eval for osteo - IV abx - f/u culture results - wound care consult - consider Podiatry consult 4. Psych history - cont home meds 5. 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 transferred here for insurance reason. He said he started experiencing SOB starting yesterday, which is worse on exertion. Denied Chest pain. He has not been taking his lasix. he also reported falling down recenty sustaining superficial lesion on forehead. said he does not know how he fell down. At outside hospital, CXR bibasilar airspace opacity, pulmonary edema vs PNA. He was admitted here last month for right great toe ulcer, but left AMA. . PMH/Family/Social Past Medical History Medical History: diabetes, hypertension Social History Alcohol Use: occasionally Smoking Status: Unknown if ever smoked Drug Use: heroin Exam/Review of Systems Vital Signs Vitals Vital Signs Date Time Temp Pulse Resp B/P Pulse Ox O2 Delivery O2 Flow Rate FiO2 04/15/17 07:35 98.1 80 18 186/116 100 04/15/17 06:57 Nasal Cannula 2.0 Exam Constitutional: alert, oriented, well developed Head: lacerations Eyes: EOMI, PERRL Respiratory: clear to auscultation, normal air movement Cardiovascular: regular rate and rhythm Gastrointestinal: non-tender, soft Extremities: edema, other (small ulcer in plantar aspect of right great toe) Medications Medications Current Medications Lorazepam (Ativan) 0.5 mg Q8H PRN PO ANXIETY; Start 04/15/17 at 07:30; Status UNV Ondansetron HCl (Zofran Inj) 4 mg Q6H PRN IV NAUSEA AND/OR VOMITING; Start 04/15 at 07:30; Status UNV Acetaminophen (Tylenol Tab) 650 mg Q6H PRN PO PAIN LEVEL 1-3 OR FEVER; Start at 07:30; Status UNV Oxycodone/ Acetaminophen (Percocet (5/ 325)) 1 tab Q6H PRN PO PAIN LEVEL 4-6; Start 04/15/17 at 07:30; Status UNV Heparin Sodium (Porcine) (Heparin (5000 Units/0.5 ml)) 5,000 unit Q12 SC ; Start 04/15/17 at 09:00; Status UNV Miscellaneous Information (* Miscellaneous Pharmacy Order) Discontinue current oral sulfonylur... ONCE ONCE XX ; Start 04/15/17 at 07:30; Stop 04/15/17 at 07:31 ; Status UNV Diagnostic Test (Pha) (Accu-Chek) 1 ea XX ; Start 04/16/17 at 02:00; Status UNV Insulin Glargine (Lantus) 16 unit DAILY@08 SC ; Start 04/15/17 at 08:00; Status UNV Miscellaneous Information (* Miscellaneous Pharmacy Order) HYPOGLYCEMIA PROTOCOL w... ONCE ONCE XX ; Start 04/15/17 at 07:30; Stop 04/15/17 at 07:31; Status UNV Miscellaneous Information (* Miscellaneous Pharmacy Order) Discontinue all previ... ONCE ONCE XX ; Start 04/15/17 at 07:30; Stop 04/15/17 at 07:31; Status UNV Aspirin (Halfprin) 81 mg DAILY PO ; Start 04/15/17 at 09:00; Status UNV Finasteride (Proscar) 5 mg DAILY PO ; Start 04/15/17 at 09:00; Status UNV Furosemide (Lasix) 20 mg DAILY IV ; Start 04/15/17 at 09:00; Status UNV Diagnostic Test (Pha) (Accu-Chek) 1 ea 02 XX ; Start 04/16/17 at 02:00; Status UNV STEVE SANDOVAL MD Apr 15, 2017 08:05
[2017-04-15 08:22] LABS: BASOPHILS % 0.6 % (0.0-2.0); EOSINOPHILS # 0.1 10^3/ul (0.0-0.5); EOSINOPHILS % 1.9 % (0.0-7.0); HEMATOCRIT 31.7 % (42.0-52.0); HEMOGLOBIN 10.4 g/dl (14.0-18.0); LYMPHOCYTES # 0.8 10^3/ul (0.8-2.9); LYMPHOCYTES % 15.8 % (15.0-51.0); MEAN CORPUSCULAR HGB CONC 32.8 g/dl (32.0-37.0); MEAN CORPUSCULAR VOLUME 94.3 fl (82.0-101.0); MEAN PLATELET VOLUME 9.6 fl (7.4-10.4); MONOCYTE # 0.4 10^3/ul (0.3-0.9); NEUTROPHILS % 74.1 % (39.0-77.0); PLATELET COUNT 204 10^3/UL (140-415); RED BLOOD COUNT 3.36 10^6/ul (4.70-6.10); RED CELL DISTRIBUTION WIDTH 13.8 % (11.5-14.5); WHITE BLOOD COUNT 5.3 10^3/ul (4.8-10.8)
[2017-04-15] MEDS: ASPIRIN (EC) 81 MG TAB PO SCH (08:29)
[2017-04-15] MEDS: FUROSEMIDE 20 MG INJ IV SCH (08:30)
[2017-04-15] MEDS: HEPARIN 5,000 UNIT/0.5 ML VIAL SC SCH ×2 (08:36→21:11)
[2017-04-15 08:39] LABS: ALBUMIN 3.3 g/dl (3.3-4.9); ALBUMIN/GLOBULIN RATIO 1.03; CALCIUM 8.2 mg/dl (8.4-10.2); CREATININE 1.08 mg/dl (0.61-1.24); MAGNESIUM 1.4 mg/dl (1.7-2.5); POTASSIUM 4.4 mmol/L (3.5-5.1); TOTAL PROTEIN 6.5 g/dl (6.1-8.1)
[2017-04-15] MEDS: OXYCODONE/ACETAMINOPHEN (5/325) TAB PO PRN ×2 (09:32→17:41)
[2017-04-15] MEDS: FINASTERIDE 5 MG TAB PO SCH (12:08)
[2017-04-15] MEDS: INSULIN GLARGINE [LANtus] 3 ML PEN SC SCH (12:09)
[2017-04-15] MEDS ORDERED: MAGNESIUM SULFATE 3 GM in SOD CHLORIDE 0.9% 100 ML IVPB ONE (14:00)
--- NOTE | 2017-04-15 17:42 | RADRPT ---
PROCEDURE: MRI OF THE RIGHT FOOT CLINICAL INDICATION: Right foot pain, great toe ulcer, concern for osteomyelitis TECHNIQUE: Multiple MRI images were obtained utilizing multiple sequences in multiple planes. Image s were interpreted on a high-resolution PACS system. COMPARISON: Radiographs of the right foot March 01, 2017 and MRI of the right foot dated december FINDINGS: There is focal medial soft tissue swelling and skin ulceration of the great toe near the first to ph alangeal joint (coronal 33 and axial 11). There is a small rounded 4 mm T2 hyperintensity that coul d reflect a tiny fluid pocket/phlegmonous change. The first distal phalanx demonstrates questionabl e mild nonspecific bone marrow edema at the tip of the. There is no focal cortical erosion and T1 i nfiltration at this time (axial 9). In the appearance of the fourth digit is unchanged from the previous study, again noting decreased T 1 signal and chronic bone remodelling of the head of the fourth proximal phalanx and the base of the fourth middle phalanx that may be from a remote fracture with pseudoarthrosis. There is a normal appearance of the second, third, and fifth digits. There is focal soft tissue pro minence between the third and fourth metatarsal heads measuring 7 by 7 mm new) that may reflect an i nterdigital neuroma. There is intrinsic foot muscle atrophy. There is no evidence of tendon tear or tenosynovitis. IMPRESSION: 1. Focal medial soft tissue swelling and mild ill-defined phlegmonous change near the first interpha langeal joint. No discrete drainable fluid collection. 2. Questionable mild bone marrow edema at the first distal phalanx, possibly reactive (or artifactua l from poor fat suppression). No definitive evidence of osteomyelitis at this time though early oste omyelitis is difficult to entirely exclude. If there is persistent clinical concern, consider short -term followup MRI study in 1-2 weeks for further evaluation. 3. Unchanged appearance of the fourth digit noting chronic bone remodelling and destructive changes of the proximal and middle phalanx that may be related to fracture nonunion with pseudoarthrosis dev elopment, less likely osteomyelitis unless there is an adjacent skin ulceration present. 4. 7 x 7 mm soft tissue fullness between the third and fourth metatarsal heads, possibly an interdi gital neuroma. RPTAT: UU .Devang Krause MD, MD Date Time Electronically viewed and signed by .Devang Krause MD, MD on 04/15/2017 17:42 .K/
[2017-04-15] MEDS ORDERED: PENDING SANTYL ORDER FOR WOUND CARE XX PRN (19:00)
[2017-04-15] MEDS: AMITRIPTYLINE 50 MG TAB PO SCH (21:09)
[2017-04-15] MEDS: [UNRECOGNIZED DRUG - REMARK] XX SCH (21:17)
[2017-04-16] VITALS (12 sets, daily range): BP systolic 125–177; BP diastolic 72–98; PULSE 60–72; RESP 18–19
[2017-04-16] MEDS: ACCU-CHEK XX SCH ×2 (02:00)
[2017-04-16] MEDS ORDERED: hydrALAzine 20 MG INJ IV PRN (05:00)
[2017-04-16] MEDS: [UNRECOGNIZED DRUG - REMARK] XX SCH ×3 (05:39→22:00)
[2017-04-16] MEDS: INSULIN ASPART [NOVOLOG] 3 ML PEN SC SCH ×4 (08:00→20:53)
[2017-04-16] MEDS: FINASTERIDE 5 MG TAB PO SCH (08:27)
[2017-04-16] MEDS: ASPIRIN (EC) 81 MG TAB PO SCH (08:27)
[2017-04-16] MEDS: clonAZEPAM 0.5 MG TAB PO SCH ×2 (08:27→20:50)
[2017-04-16] MEDS: LISINOPRIL 10 MG TAB PO SCH (08:28)
[2017-04-16] MEDS: FUROSEMIDE 20 MG INJ IV SCH ×2 (08:28→17:28)
[2017-04-16] MEDS: OXYCODONE/ACETAMINOPHEN (5/325) TAB PO PRN ×2 (08:28→14:50)
[2017-04-16] MEDS: HEPARIN 5,000 UNIT/0.5 ML VIAL SC SCH ×2 (08:32→20:54)
[2017-04-16] MEDS: INSULIN GLARGINE [LANtus] 3 ML PEN SC SCH (08:33)
[2017-04-16] MEDS: metFORMIN (XR) 500 MG TAB PO SCH ×2 (08:37→17:29)
[2017-04-16] MEDS: GABAPENTIN 400 MG CAP PO SCH ×3 (08:37→20:52)
[2017-04-16] MEDS ORDERED: METFORMIN HCL 500 MG PO SCH (09:00)
[2017-04-16 09:51] LABS: BASOPHILS % 0.3 % (0.0-2.0); EOSINOPHILS % 0.6 % (0.0-7.0); HEMATOCRIT 34.6 % (42.0-52.0); HEMOGLOBIN 11.3 g/dl (14.0-18.0); LYMPHOCYTES # 0.6 10^3/ul (0.8-2.9); LYMPHOCYTES % 8.6 % (15.0-51.0); MEAN CORPUSCULAR HEMOGLOBIN 29.7 pg (29.0-33.0); MEAN CORPUSCULAR HGB CONC 32.7 g/dl (32.0-37.0); MEAN CORPUSCULAR VOLUME 91.1 fl (82.0-101.0); MEAN PLATELET VOLUME 9.9 fl (7.4-10.4); MONOCYTE # 0.3 10^3/ul (0.3-0.9); MONOCYTES % 4.8 % (0.0-11.0); NEUTROPHILS % 85.1 % (39.0-77.0); PLATELET COUNT 231 10^3/UL (140-415); RED CELL DISTRIBUTION WIDTH 13.8 % (11.5-14.5); WHITE BLOOD COUNT 7.1 10^3/ul (4.8-10.8)
[2017-04-16 10:08] LABS: CALCIUM 8.8 mg/dl (8.4-10.2); CREATININE 0.92 mg/dl (0.61-1.24); MAGNESIUM 1.3 mg/dl (1.7-2.5); PHOSPHORUS 1.9 mg/dl (2.5-4.9); POTASSIUM 3.8 mmol/L (3.5-5.1)
[2017-04-16] MEDS ORDERED: MAGNESIUM SULFATE 2 GM/50 ML 50 ML IVPB ONE (15:30)
--- NOTE | 2017-04-16 16:15 | PN ---
Date/Time of Note Date/Time of Note DATE: 04/16/17 TIME: 16:04 Assessment/Plan VTE Prophylaxis VTE Prophylaxis Intervention: LMWH Lines/Catheters IV Catheter Type (from Nrs): Peripheral IV Assessment/Plan Chief Complaint/Hosp Course 56 yo male wtih h/o chronic diastolic CHF, etoh use d/o, PAD, DMII who presents [facility] acute decompenstated CHF exacerbation and possible osteo Acute on chronic diatsolic CHF exacerbation: - Needs more diuresis, hypervolemic on exam - Increase lasix to 40 IV BID - Likely 2/2 hypertension, BP adequately controlled PAD, concern for osteomyelitis - consulted podiatry - CRP non elevated so don't feel he has an indication for abx currently - Aspirin, statin DMII ulceration of great toe, podiatry consulted DMII: - Continue basal/bolus insulin Discharge to self care when euvolemic Problems: Subjective 24 Hr Interval Summary Free Text/Dictation Patient still with dyspnea, orthopnea Diuresing slowly Says he is adherent to 40 PO lasix "most days of the week" Exam/Review of Systems Vital Signs Vitals Vital Signs Date Time Temp Pulse Resp B/P Pulse Ox O2 Delivery O2 Flow Rate FiO2 04/16/17 12:07 98.1 83 18 138/81 96 04/16/17 00:56 2.0 04/15/17 06:57 Nasal Cannula Intake and Output 04/15/17 04/15/17 04/16/17 15:00 23:00 07:00 Intake Total 1200 ml 300 ml Output Total 400 ml Balance 1200 ml -100 ml Exam ++++ JVD No peripheral edema Slihglyt tachypenic but non labored Great toe with small open puncture lesion, no signs of cellulitis, no drainage or erythema Constitutional: alert, oriented, well developed Psych: nl mood/affect, no complaints Head: atraumatic, normocephalic Eyes: EOMI, PERRL, nl conjunctiva, nl lids, nl sclera ENMT: nl external ears & nose, nl lips & teeth, nl nasal mucosa & septum Neck: non-tender, supple Respiratory: clear to auscultation, normal air movement Cardiovascular: nl pulses, regular rate and rhythm Gastrointestinal: nl liver, spleen, non-tender, soft Musculoskeletal: nl extremities to inspection, nl gait and stance Extremities: normal pulses Neurological: SEN[employer] GEN[employer] COUNSELOR II-XII intact, nl mental status, nl speech, nl strength Skin: nl turgor, No rash or lesions Lymph: nl lymph nodes Results Result Diagram: 04/16/1792404/16/17924 Results 24 hrs Laboratory Tests Test 04/15/17 17:21 04/15/17 21:08 04/16/17 07:56 04/16/17 09:25 Bedside Glucose 131 133 140 White Blood Count 7.1 # Red Blood Count 3.80 L Hemoglobin 11.3 L Hematocrit 34.6 L Mean Corpuscular Volume 91.1 Mean Corpuscular Hemoglobin 29.7 Mean Corpuscular Hemoglobin Concent 32.7 Red Cell Distribution Width 13.8 Platelet Count 231 Mean Platelet Volume 9.9 Neutrophils % 85.1 H Lymphocytes % 8.6 L Monocytes % 4.8 Eosinophils % 0.6 Basophils % 0.3 Nucleated Red Blood Cells % 0.0 Neutrophils # (Manual) 6.0 Lymphocytes # 0.6 L Monocytes # 0.3 Eosinophils # 0.0 Basophils # 0.0 Nucleated Red Blood Cells # 0.0 Sodium Level 137 Potassium Level 3.8 Chloride Level 103 Carbon Dioxide Level 26 Anion Gap 12 Blood Urea Nitrogen 13 Creatinine 0.92 Glucose Level 165 Hemoglobin A1c 5.6 Calcium Level 8.8 Phosphorus Level 1.9 L Magnesium Level 1.3 L C-Reactive Protein 1.6 H Test 04/16/17 12:00 Bedside Glucose 100 Medications Medications Current Medications Lorazepam (Ativan) 0.5 mg Q8H PRN PO ANXIETY Last administered on 04/15/17 08: 30; Admin Dose 0.5 MG; Start 04/15/17 at 08:00 Ondansetron HCl (Zofran Inj) 4 mg Q6H PRN IV NAUSEA AND/OR VOMITING; Start 04/15 at 07:30 Acetaminophen (Tylenol Tab) 650 mg Q6H PRN PO PAIN LEVEL 1-3 OR FEVER; Start at 07:30 Oxycodone/ Acetaminophen (Percocet (5/ 325)) 1 tab Q6H PRN PO PAIN LEVEL 4-6 Last administered on 04/16/17 14:50; Admin Dose 1 TAB; Start 04/15/17 at 07:30 Heparin Sodium (Porcine) (Heparin (5000 Units/0.5 ml)) 5,000 unit Q12 SC Last administered on 04/16/17 08:32; Admin Dose 5,000 UNIT; Start 04/15/17 at 09:00 Diagnostic Test (Pha) (Accu-Chek) 1 ea 02 XX ; Start 04/16/17 at 02:00 Insulin Glargine (Lantus) 16 unit DAILY@08 SC Last administered on 04/16/17 08: 33; Admin Dose 16 UNIT; Start 04/15/17 at 08:00 Aspirin (Halfprin) 81 mg DAILY PO Last administered on 04/16/17 08:27; Admin Dose 81 MG; Start 04/15/17 at 09:00 Finasteride (Proscar) 5 mg DAILY PO Last administered on 04/16/17 08:27; Admin Dose 5 MG; Start 04/15/17 at 09:00 Diagnostic Test (Pha) (Accu-Chek) 1 ea 02 XX ; Start 04/16/17 at 02:00 Miscellaneous Information 1 ea NOTE XX ; Start 04/15/17 at 08:00 Glucose (Glutose) 15 gm Q15M PRN PO DECREASED GLUCOSE; Start 04/15/17 at 08:00 Glucose (Glutose) 22.5 gm Q15M PRN PO DECREASED GLUCOSE; Start 04/15/17 at 08:00 Dextrose (D50w Syringe) 25 ml Q15M PRN IV DECREASED GLUCOSE; Start 04/15/17 at 08:00 Dextrose (D50w Syringe) 50 ml Q15M PRN IV DECREASED GLUCOSE; Start 04/15/17 at 08:00 Glucagon (Glucagen) 1 mg Q15M PRN IM DECREASED GLUCOSE; Start 04/15/17 at 08:00 Glucose (Glutose) 15 gm Q15M PRN BUCCAL DECREASED GLUCOSE; Start 04/15/17 at 08: 00 Amitriptyline HCl (Elavil) 100 mg HS PO Last administered on 04/15/17 21:09; Admin Dose 100 MG; Start 04/15/17 at 21:00 Miscellaneous Information (* Miscellaneous Pharmacy Order) PATIENT'S OWN MEDICAT... Q8 XX Last administered on 04/16/17 12:58; Admin Dose 1 EA; Start at 22:00 Miscellaneous Information (Pending Santyl Order For Wound Care) This patient huynh... PRN PRN XX WOUND CARE; Start 04/15/17 at 19:00 Hydralazine HCl (Apresoline) 10 mg Q4H PRN IV ELEVATED BLOOD PRESSURE Last administered on 04/16/17 06:25; Admin Dose 10 MG; Start 04/16/17 at 05:00 Carvedilol (Coreg) 3.125 mg DAILY PO Last administered on 04/16/17 08:29; Admin Dose 3.125 MG; Start 04/16/17 at 09:00 Clonazepam (Klonopin) 1 mg BID PO Last administered on 04/16/17 08:27; Admin Dose 1 MG; Start 04/16/17 at 09:00 Clonidine (Catapres) 0.1 mg BID PO Last administered on 04/16/17 08:28; Admin Dose 0.1 MG; Start 04/16/17 at 09:00 Gabapentin (Neurontin) 800 mg Q8 PO Last administered on 04/16/17 14:49; Admin Dose 800 MG; Start 04/16/17 at 09:00 Lisinopril 10 mg 10 mg DAILY PO Last administered on 04/16/17 08:28; Admin Dose 10 MG; Start 04/16/17 at 09:00 Potassium Phosphate 20 meq/ Sodium Chloride 254.5455 ml @ 63.636 m... ONCE ONCE IVPB ; Start 04/16/17 at 17:30; Stop 04/16/17 at 21:29 Magnesium Sulfate (Magnesium Sulfate 2 Gm/50 ml) 50 ml @ 25 mls/hr ONCE ONCE IVPB ; Start 04/16/17 at 15:30; Stop 04/16/17 at 17:29 KATIE IRIZARRY MD Apr 16, 2017 16:14
[2017-04-16] MEDS ORDERED: POTASSIUM PHOSPHATE 20 MEQ in SOD CHLORIDE 0.9% 250 ML IVPB ONE (17:30)
[2017-04-16] MEDS: HYDROmorphONE 2 MG TAB PO PRN ×2 (18:26→23:31)
[2017-04-16] MEDS: AMITRIPTYLINE 50 MG TAB PO SCH (20:51)
[2017-04-16] MEDS ORDERED: AMITRIPTYLINE 50 MG TAB PO SCH (21:00)
[2017-04-17] VITALS (12 sets, daily range): BP systolic 94–129; BP diastolic 56–87; PULSE 63–95; RESP 18–20
[2017-04-17] MEDS: ACCU-CHEK XX SCH ×2 (02:00)
--- NOTE | 2017-04-17 02:30 | RADRPT ---
PROCEDURE: PA and lateral chest x-ray. CLINICAL INDICATION: 56 years of age, male. Shortness of breath. TECHNIQUE: PA and lateral views of the chest. COMPARISON: None available. FINDINGS: Cardiomediastinal contours are normal. There is elevation of the right diaphragm. There are gas-filled loops of bowel beneath the right di aphragm. Mild increased opacity in the left lower lung zone may represent aspiration or pneumonia. Negative for pleural effusion or pneumothorax. No acute bony abnormality. IMPRESSION: Mild opacity left lower lung zone may represent aspiration or pneumonia. There is elevation of the right diaphragm with multiple gas-filled loops of bowel beneath the right diaphragm. If there are abdominal symptoms, recommend dedicated imaging of the abdomen. RPTAT: HCTS Physician Stephanie Date Time Electronically viewed and signed by Physician Stephanie on 04/17/2017 02:29 /
[2017-04-17] MEDS: GABAPENTIN 400 MG CAP PO SCH ×3 (05:51→22:29)
[2017-04-17] MEDS: FUROSEMIDE 20 MG INJ IV SCH (05:53)
[2017-04-17] MEDS: [UNRECOGNIZED DRUG - REMARK] XX SCH ×3 (05:53→22:00)
[2017-04-17] MEDS: HYDROmorphONE 2 MG TAB PO PRN ×3 (07:07→17:42)
[2017-04-17 07:37] LABS: BASOPHILS % 0.4 % (0.0-2.0); EOSINOPHILS # 0.1 10^3/ul (0.0-0.5); EOSINOPHILS % 1.5 % (0.0-7.0); HEMOGLOBIN 12.8 g/dl (14.0-18.0); LYMPHOCYTES # 1.5 10^3/ul (0.8-2.9); LYMPHOCYTES % 19.5 % (15.0-51.0); MEAN CORPUSCULAR HEMOGLOBIN 29.7 pg (29.0-33.0); MEAN CORPUSCULAR HGB CONC 32.8 g/dl (32.0-37.0); MEAN CORPUSCULAR VOLUME 90.5 fl (82.0-101.0); MEAN PLATELET VOLUME 9.3 fl (7.4-10.4); MONOCYTE # 0.5 10^3/ul (0.3-0.9); MONOCYTES % 6.1 % (0.0-11.0); PLATELET COUNT 245 10^3/UL (140-415); RED BLOOD COUNT 4.31 10^6/ul (4.70-6.10); WHITE BLOOD COUNT 7.5 10^3/ul (4.8-10.8)
[2017-04-17] MEDS: INSULIN ASPART [NOVOLOG] 3 ML PEN SC SCH ×4 (08:00→21:00)
[2017-04-17 08:15] LABS: ALBUMIN 3.8 g/dl (3.3-4.9); ALBUMIN/GLOBULIN RATIO 1.08; BILIRUBIN,INDIRECT 0.2 mg/dl (0-1.1); BILIRUBIN,TOTAL 0.2 mg/dl (0.2-1.3); CALCIUM 9.3 mg/dl (8.4-10.2); CREATININE 1.1 mg/dl (0.61-1.24); POTASSIUM 4.1 mmol/L (3.5-5.1); TOTAL PROTEIN 7.3 g/dl (6.1-8.1)
[2017-04-17] MEDS: INSULIN GLARGINE [LANtus] 3 ML PEN SC SCH (08:37)
[2017-04-17] MEDS: HEPARIN 5,000 UNIT/0.5 ML VIAL SC SCH ×2 (08:39→20:57)
[2017-04-17] MEDS: FINASTERIDE 5 MG TAB PO SCH (08:39)
[2017-04-17] MEDS: clonAZEPAM 0.5 MG TAB PO SCH ×2 (08:40→20:55)
[2017-04-17] MEDS: metFORMIN (XR) 500 MG TAB PO SCH ×2 (08:40→17:43)
[2017-04-17] MEDS: LISINOPRIL 10 MG TAB PO SCH (08:42)
[2017-04-17] MEDS: ASPIRIN (EC) 81 MG TAB PO SCH (08:42)
[2017-04-17] MEDS ORDERED: clonAZEPAM 0.5 MG TAB PO ONE (12:30)
--- NOTE | 2017-04-17 15:34 | PN ---
Date/Time of Note Date/Time of Note DATE: 04/17/17 TIME: 15:29 Assessment/Plan VTE Prophylaxis VTE Prophylaxis Intervention: LMWH Lines/Catheters IV Catheter Type (from Nrs): Peripheral IV Assessment/Plan Chief Complaint/Hosp Course 56 yo male wt h/o chronic diastolic CHF, etoh use d/o, PAD, DMII who presents [facility] acute decompenstated diastolic CHF exacerbation and possible osteo Acute on chronic diatsolic CHF exacerbation: - Diuresing effectively - Continue lasix to 40 IV BID - Likely 2/2 hypertension, BP adequately controlled PAD, concern for osteomyelitis - consulted podiatry - CRP non elevated so don't feel he has an indication for abx currently - Aspirin, statin DMII ulceration of great toe, podiatry consulted DMII: - Continue basal/bolus insulin Discharge to self care when euvolemic Problems: Subjective 24 Hr Interval Summary Free Text/Dictation Diuresing effectively Breathing is much improved Awaiting assessment from certified prosthetist Exam/Review of Systems Vital Signs Vitals Vital Signs Date Time Temp Pulse Resp B/P Pulse Ox O2 Delivery O2 Flow Rate FiO2 04/17/17 12:00 86 04/17/17 11:57 98.6 18 116/83 94 04/17/17 01:45 2.0 04/15/17 06:57 Nasal Cannula Intake and Output 04/16/17 04/16/17 04/17/17 15:00 23:00 07:00 Intake Total 800 ml 500 ml Balance 800 ml 500 ml Exam Constitutional: alert, oriented, well developed Results Result Diagram: 04/17/17 0712 04/17/17 0712 Results 24 hrs Laboratory Tests Test 04/16/17 17:24 04/16/17 20:49 04/17/17 02:17 04/17/17 07:12 Bedside Glucose 113 102 93 White Blood Count 7.5 Red Blood Count 4.31 L Hemoglobin 12.8 L Hematocrit 39.0 L Mean Corpuscular Volume 90.5 Mean Corpuscular Hemoglobin 29.7 Mean Corpuscular Hemoglobin Concent 32.8 Red Cell Distribution Width 14.0 Platelet Count 245 Mean Platelet Volume 9.3 Neutrophils % 72.0 Lymphocytes % 19.5 Monocytes % 6.1 Eosinophils % 1.5 Basophils % 0.4 Nucleated Red Blood Cells % 0.0 Neutrophils # (Manual) 5.4 Lymphocytes # 1.5 Monocytes # 0.5 Eosinophils # 0.1 Basophils # 0.0 Nucleated Red Blood Cells # 0.0 Sodium Level 136 Potassium Level 4.1 Chloride Level 98 Carbon Dioxide Level 31 Anion Gap 11 Blood Urea Nitrogen 21 H Creatinine 1.10 Glucose Level 89 # Calcium Level 9.3 Total Bilirubin 0.2 Direct Bilirubin 0.00 Indirect Bilirubin 0.2 Aspartate Amino Transf (AST/SGOT) 30 # Alanine Aminotransferase (ALT/SGPT) 35 Alkaline Phosphatase 74 Total Protein 7.3 Albumin 3.8 Globulin 3.50 H Albumin/Globulin Ratio 1.08 Test 04/17/17 07:53 04/17/17 12:26 Bedside Glucose 83 106 Medications Medications Current Medications Lorazepam (Ativan) 0.5 mg Q8H PRN PO ANXIETY Last administered on 04/15/17 08: 30; Admin Dose 0.5 MG; Start 04/15/17 at 08:00 Ondansetron HCl (Zofran Inj) 4 mg Q6H PRN IV NAUSEA AND/OR VOMITING; Start 04/15 at 07:30 Acetaminophen (Tylenol Tab) 650 mg Q6H PRN PO PAIN LEVEL 1-3 OR FEVER; Start at 07:30 Heparin Sodium (Porcine) (Heparin (5000 Units/0.5 ml)) 5,000 unit Q12 SC Last administered on 04/17/17 08:39; Admin Dose 5,000 UNIT; Start 04/15/17 at 09:00 Diagnostic Test (Pha) (Accu-Chek) 1 ea 02 XX ; Start 04/16/17 at 02:00 Insulin Glargine (Lantus) 16 unit DAILY@08 SC Last administered on 04/17/17 08: 37; Admin Dose 16 UNIT; Start 04/15/17 at 08:00 Aspirin (Halfprin) 81 mg DAILY PO Last administered on 04/17/17 08:42; Admin Dose 81 MG; Start 04/15/17 at 09:00 Finasteride (Proscar) 5 mg DAILY PO Last administered on 04/17/17 08:39; Admin Dose 5 MG; Start 04/15/17 at 09:00 Diagnostic Test (Pha) (Accu-Chek) 1 ea 02 XX ; Start 04/16/17 at 02:00 Miscellaneous Information 1 ea NOTE XX ; Start 04/15/17 at 08:00 Glucose (Glutose) 15 gm Q15M PRN PO DECREASED GLUCOSE; Start 04/15/17 at 08:00 Glucose (Glutose) 22.5 gm Q15M PRN PO DECREASED GLUCOSE; Start 04/15/17 at 08:00 Dextrose (D50w Syringe) 25 ml Q15M PRN IV DECREASED GLUCOSE; Start 04/15/17 at 08:00 Dextrose (D50w Syringe) 50 ml Q15M PRN IV DECREASED GLUCOSE; Start 04/15/17 at 08:00 Glucagon (Glucagen) 1 mg Q15M PRN IM DECREASED GLUCOSE; Start 04/15/17 at 08:00 Glucose (Glutose) 15 gm Q15M PRN BUCCAL DECREASED GLUCOSE; Start 04/15/17 at 08: 00 Amitriptyline HCl (Elavil) 100 mg HS PO Last administered on 04/16/17 20:51; Admin Dose 100 MG; Start 04/15/17 at 21:00 Miscellaneous Information (* Miscellaneous Pharmacy Order) PATIENT'S OWN MEDICAT... Q8 XX Last administered on 04/16/17 22:00; Admin Dose 1 EA; Start at 22:00 Miscellaneous Information (Pending Santyl Order For Wound Care) This patient huynh... PRN PRN XX WOUND CARE; Start 04/15/17 at 19:00 Hydralazine HCl (Apresoline) 10 mg Q4H PRN IV ELEVATED BLOOD PRESSURE Last administered on 04/16/17 06:25; Admin Dose 10 MG; Start 04/16/17 at 05:00 Carvedilol (Coreg) 3.125 mg DAILY PO Last administered on 04/17/17 08:42; Admin Dose 3.125 MG; Start 04/16/17 at 09:00 Clonidine (Catapres) 0.1 mg BID PO Last administered on 04/17/17 08:42; Admin Dose 0.1 MG; Start 04/16/17 at 09:00 Gabapentin (Neurontin) 800 mg Q8 PO Last administered on 04/17/17 14:39; Admin Dose 800 MG; Start 04/16/17 at 09:00 Lisinopril (Zestril) 10 mg DAILY PO Last administered on 04/17/17 08:42; Admin Dose 10 MG; Start 04/16/17 at 09:00 Hydromorphone HCl (Dilaudid) 4 mg Q4H PRN PO PAIN Last administered on t 12:17; Admin Dose 4 MG; Start 04/16/17 at 18:30 Clonazepam (Klonopin) 2 mg BID PO ; Start 04/17/17 at 21:00 KATIE IRIZARRY MD Apr 17, 2017 15:34
[2017-04-17] MEDS: FUROSEMIDE 40 MG TAB PO SCH (17:46)
[2017-04-17] MEDS: AMITRIPTYLINE 50 MG TAB PO SCH (20:56)
--- NOTE | 2017-04-17 23:35 | CONS ---
Date/Time of Note Date/Time of Note DATE: 04/17/17 TIME: 23:35 Consultation Date/Type/Reason Admit Date/Time Apr 15, 2017 at 06:14 Psychological: nl mood/affect, no complaints Past Medical History Medical History: diabetes, hypertension Social History Alcohol Use: occasionally Smoking Status: Current some day smoker Drug Use: heroin Exam/Review of Systems Vital Signs Vitals Vital Signs Date Time Temp Pulse Resp B/P Pulse Ox O2 Delivery O2 Flow Rate FiO2 04/17/17 20:15 95 04/17/17 19:37 98.0 20 120/79 94 04/17/17 01:45 2.0 04/15/17 06:57 Nasal Cannula Intake and Output 04/16/17 04/16/17 04/17/17 14:59 22:59 06:59 Intake Total 800 ml 500 ml Balance 800 ml 500 ml Results Result Diagram: 04/17/17 0712 04/17/17 0712 Results 24 hrs Laboratory Tests Test 04/17/17 02:17 04/17/17 07:12 04/17/17 07:53 04/17/17 12:26 Bedside Glucose 93 83 106 White Blood Count 7.5 Red Blood Count 4.31 L Hemoglobin 12.8 L Hematocrit 39.0 L Mean Corpuscular Volume 90.5 Mean Corpuscular Hemoglobin 29.7 Mean Corpuscular Hemoglobin Concent 32.8 Red Cell Distribution Width 14.0 Platelet Count 245 Mean Platelet Volume 9.3 Neutrophils % 72.0 Lymphocytes % 19.5 Monocytes % 6.1 Eosinophils % 1.5 Basophils % 0.4 Nucleated Red Blood Cells % 0.0 Neutrophils # (Manual) 5.4 Lymphocytes # 1.5 Monocytes # 0.5 Eosinophils # 0.1 Basophils # 0.0 Nucleated Red Blood Cells # 0.0 Sodium Level 136 Potassium Level 4.1 Chloride Level 98 Carbon Dioxide Level 31 Anion Gap 11 Blood Urea Nitrogen 21 H Creatinine 1.10 Glucose Level 89 # Calcium Level 9.3 Total Bilirubin 0.2 Direct Bilirubin 0.00 Indirect Bilirubin 0.2 Aspartate Amino Transf (AST/SGOT) 30 # Alanine Aminotransferase (ALT/SGPT) 35 Alkaline Phosphatase 74 Total Protein 7.3 Albumin 3.8 Globulin 3.50 H Albumin/Globulin Ratio 1.08 Test 04/17/17 17:36 04/17/17 21:51 Bedside Glucose 97 112 Medications Medications Current Medications Lorazepam (Ativan) 0.5 mg Q8H PRN PO ANXIETY Last administered on 04/15/17 08: 30; Admin Dose 0.5 MG; Start 04/15/17 at 08:00 Ondansetron HCl (Zofran Inj) 4 mg Q6H PRN IV NAUSEA AND/OR VOMITING; Start 04/15 at 07:30 Acetaminophen (Tylenol Tab) 650 mg Q6H PRN PO PAIN LEVEL 1-3 OR FEVER; Start at 07:30 Heparin Sodium (Porcine) (Heparin (5000 Units/0.5 ml)) 5,000 unit Q12 SC Last administered on 04/17/17 20:57; Admin Dose 5,000 UNIT; Start 04/15/17 at 09:00 Diagnostic Test (Pha) (Accu-Chek) 1 ea 02 XX ; Start 04/16/17 at 02:00 Insulin Glargine (Lantus) 16 unit DAILY@08 SC Last administered on 04/17/17 08: 37; Admin Dose 16 UNIT; Start 04/15/17 at 08:00 Aspirin (Halfprin) 81 mg DAILY PO Last administered on 04/17/17 08:42; Admin Dose 81 MG; Start 04/15/17 at 09:00 Finasteride (Proscar) 5 mg DAILY PO Last administered on 04/17/17 08:39; Admin Dose 5 MG; Start 04/15/17 at 09:00 Diagnostic Test (Pha) (Accu-Chek) 1 ea 02 XX ; Start 04/16/17 at 02:00 Miscellaneous Information 1 ea NOTE XX ; Start 04/15/17 at 08:00 Glucose (Glutose) 15 gm Q15M PRN PO DECREASED GLUCOSE; Start 04/15/17 at 08:00 Glucose (Glutose) 22.5 gm Q15M PRN PO DECREASED GLUCOSE; Start 04/15/17 at 08:00 Dextrose (D50w Syringe) 25 ml Q15M PRN IV DECREASED GLUCOSE; Start 04/15/17 at 08:00 Dextrose (D50w Syringe) 50 ml Q15M PRN IV DECREASED GLUCOSE; Start 04/15/17 at 08:00 Glucagon (Glucagen) 1 mg Q15M PRN IM DECREASED GLUCOSE; Start 04/15/17 at 08:00 Glucose (Glutose) 15 gm Q15M PRN BUCCAL DECREASED GLUCOSE; Start 04/15/17 at 08: 00 Amitriptyline HCl (Elavil) 100 mg HS PO Last administered on 04/17/17 20:56; Admin Dose 100 MG; Start 04/15/17 at 21:00 Miscellaneous Information (* Miscellaneous Pharmacy Order) PATIENT'S OWN MEDICAT... Q8 XX Last administered on 04/16/17 22:00; Admin Dose 1 EA; Start at 22:00 Miscellaneous Information (Pending Santyl Order For Wound Care) This patient huynh... PRN PRN XX WOUND CARE; Start 04/15/17 at 19:00 Hydralazine HCl (Apresoline) 10 mg Q4H PRN IV ELEVATED BLOOD PRESSURE Last administered on 04/16/17 06:25; Admin Dose 10 MG; Start 04/16/17 at 05:00 Carvedilol (Coreg) 3.125 mg DAILY PO Last administered on 04/17/17 08:42; Admin Dose 3.125 MG; Start 04/16/17 at 09:00 Clonidine (Catapres) 0.1 mg BID PO Last administered on 04/17/17 20:55; Admin Dose 0.1 MG; Start 04/16/17 at 09:00 Gabapentin (Neurontin) 800 mg Q8 PO Last administered on 04/17/17 22:29; Admin Dose 800 MG; Start 04/16/17 at 09:00 Lisinopril (Zestril) 10 mg DAILY PO Last administered on 04/17/17 08:42; Admin Dose 10 MG; Start 04/16/17 at 09:00 Hydromorphone HCl (Dilaudid) 4 mg Q4H PRN PO PAIN Last administered on 17:42; Admin Dose 4 MG; Start 04/16/17 at 18:30 Clonazepam (Klonopin) 2 mg BID PO Last administered on 04/17/17 20:55; Admin Dose 2 MG; Start 04/17/17 at 21:00 LISS BURTON DPM Apr 17, 2017 23:35
[2017-04-18 00:12] VITALS: PULSE 95
[2017-04-18] MEDS: ACCU-CHEK XX SCH ×2 (02:00)
[2017-04-18 03:47] VITALS: BP 129/90; RESP 19
[2017-04-18 04:04] VITALS: PULSE 85
[2017-04-18] MEDS: [UNRECOGNIZED DRUG - REMARK] XX SCH (06:00)
[2017-04-18] MEDS: GABAPENTIN 400 MG CAP PO SCH (06:57)
[2017-04-18] MEDS: FUROSEMIDE 40 MG TAB PO SCH (06:57)
[2017-04-18 07:41] VITALS: BP 120/70; RESP 18
[2017-04-18] MEDS: INSULIN ASPART [NOVOLOG] 3 ML PEN SC SCH (08:00)
[2017-04-18 08:37] VITALS: PULSE 69
[2017-04-18] MEDS: HEPARIN 5,000 UNIT/0.5 ML VIAL SC SCH (09:00)
[2017-04-18] MEDS: metFORMIN (XR) 500 MG TAB PO SCH (09:04)
[2017-04-18] MEDS: ASPIRIN (EC) 81 MG TAB PO SCH (09:04)
[2017-04-18] MEDS: FINASTERIDE 5 MG TAB PO SCH (09:04)
[2017-04-18] MEDS: LISINOPRIL 10 MG TAB PO SCH (09:05)
[2017-04-18] MEDS: clonAZEPAM 0.5 MG TAB PO SCH (09:05)
[2017-04-18 09:07] LABS: ALBUMIN 3.7 g/dl (3.3-4.9); ALBUMIN/GLOBULIN RATIO 1.12; BILIRUBIN,INDIRECT 0.1 mg/dl (0-1.1); BILIRUBIN,TOTAL 0.1 mg/dl (0.2-1.3); CALCIUM 9.6 mg/dl (8.4-10.2); CREATININE 1.17 mg/dl (0.61-1.24); POTASSIUM 4.6 mmol/L (3.5-5.1)
[2017-04-18] MEDS: INSULIN GLARGINE [LANtus] 3 ML PEN SC SCH (09:11)
[2017-04-18] MEDS ORDERED: CARV3.12 PO ×2 (10:06→10:11)
[2017-04-18] MEDS ORDERED: LISI10TA2 PO (10:06)
[2017-04-18] MEDS ORDERED: CLON-379 PO (10:06)
[2017-04-18] MEDS ORDERED: FURO40TA4 PO (10:07)
--- NOTE | 2017-04-18 10:13 | PDOCDIS ---
Discharge Instructions CONDITION Patient Condition: Good HOME CARE INSTRUCTIONS: Diet Instructions: Reduced SodiumSpecial Diet: CARB CONTROLLED FOLLOW UP/APPOINTMENTS Follow-up Plan It is very important for you to take medications to control your blood pressure every day You also need to take a water pill to avoid fluid accumulating in your lungs due to your heart failure You should take lasix 40 mg every day after discharge. However, this dose may need to be altered in the near future. Please see you primary care provider within the next 1-2 weeks for evaluation and blood work KATIE IRIZARRY MD Apr 18, 2017 10:13
--- NOTE | 2017-04-18 14:35 | DS ---
Date/Time of Note Date/Time of Note DATE: 04/18/17 TIME: 14:34 Discharge Summary Admission/Discharge Info Admit Date/Time Apr 15, 2017 at 06:14 Discharge Date/Time Apr 18, 2017 at 11:13 Discharge Diagnosis Acute diastolic CHF exacerbation Patient Condition: Fair Hx of Present Illness This is a 56 yo homeless male with hx of HTN, DM, DL, stage I diastolic dysfunction, right great toe ulcer, poly substance abuse who initially went to [place] c/o SOB. transferred here for insurance reason. He said he started experiencing SOB starting yesterday, which is worse on exertion. Denied Chest pain. He has not been taking his lasix. he also reported falling down recenty sustaining superficial lesion on forehead. said he does not know how he fell down. At outside hospital, CXR bibasilar airspace opacity, pulmonary edema vs PNA. He was admitted here last month for right great toe ulcer, but left AMA. . Hospital Course 56 yo male [facility] h/o chronic diastolic CHF, etoh use d/o, PAD, DMII who presents [facility] acute decompenstated diastolic CHF exacerbation and possible osteo Patient was diuresed with lasix and over two days become euvolemic. His breathing improved to baseline and he was encouraged to adhere to his lasix 40 mg PO daily. Etiology of his CHF exacerbation was thought to be medication nonadherence. He was evaluted by Dr Mcclellan from podiatry who felt his toe wound needed only local wound care and would be best follow as an outpateint. He was continued on his home antihypertensives. He was couunseled on imporatce of close follow up and need for blood work in next 1-2 weeks. Home Meds Active Scripts Carvedilol* (Coreg*) 3.125 Mg Tablet, 3.125 MG PO DAILY for 60 Days, #30 TAB 2 Refills Prov:KATIE IRIZARRY MD 04/18/17 Furosemide* (Furosemide*) 40 Mg Tablet, 40 MG PO DAILY for 60 Days, #60 TAB Prov:KATIE IRIZARRY MD 04/18/17 Lisinopril* (Lisinopril*) 10 Mg Tablet, 10 MG PO DAILY, #30 TAB 2 Refills Prov:KATIE IRIZARRY MD 04/18/17 Clonidine Hcl* (Clonidine Hcl*) 0.1 Mg Tab, 0.1 MG PO BID for 30 Days, #60 TAB hold for SBP <110, HR <65 Prov:KATIE IRIZARRY MD 04/18/17 Aspirin* (Aspirin* EC) 81 Mg Tablet.dr, 81 MG PO DAILY, #30 TAB 1 Refill Prov:MARTITA TROTTEREEP S. 02/17/17 Amitriptyline Hcl* (Amitriptyline Hcl*) 100 Mg Tablet, 100 MG PO QHS, #30 TAB 2 Refills Prov:ROSE MARIERAMON S. 02/17/17 Finasteride* (Finasteride*) 5 Mg Tablet, 5 MG PO DAILY, #30 TAB 2 Refills Prov:RAMON TROTTER S. 02/17/17 Hydromorphone Hcl* (Dilaudid*) 2 Mg Tablet, 2 MG PO Q8H Y for SEVERE PAIN LEVEL 7-10, #40 TAB Prov:ANGELITO GOODWIN MD 01/09/17 Reported Medications Gabapentin* (Gabapentin*) 800 Mg Tablet, 800 MG PO Q8 03/20/17 Clonazepam* (Clonazepam*) 1 Mg Tablet, 1 MG PO BID, TAB 02/15/17 Metformin HCl (Metformin HCl ER) 500 Mg [id number], 500 MG PO BID, TAB 10/05/16 Discontinued Scripts Carvedilol* (Coreg*) 3.125 Mg Tablet, 3.125 MG PO DAILY, #60 TAB 2 Refills Prov:SHANERAMON S. 02/17/17 Primary Care Provider Allison Cabrera Pending Labs Laboratory Tests Test 04/17/17 17:36 04/17/17 21:51 04/18/17 07:46 04/18/17 08:19 Bedside Glucose 97mg/dL (70-220) 112mg/dL (70-220) 85mg/dL (70-220) Sodium Level 137mmol/L (135-144) Potassium Level 4.6mmol/L (3.5-5.1) Chloride Level 98mmol/L (97-110) Carbon Dioxide Level 32mmol/L (21-31) Anion Gap 12 (8-16) Blood Urea Nitrogen 25mg/dl (7-20) Creatinine 1.17mg/dl (0.61-1.24) Glucose Level 89mg/dl (70-220) Calcium Level 9.6mg/dl (8.4-10.2) Total Bilirubin 0.1mg/dl (0.2-1.3) Direct Bilirubin 0.00mg/dl (0.00-0.20) Indirect Bilirubin 0.1mg/dl (0-1.1) Aspartate Amino Transf (AST/SGOT) 33IU/L (15-46) Alanine Aminotransferase (ALT/SGPT) 36IU/L (13-69) Alkaline Phosphatase 73IU/L (42-121) Total Protein 7.0g/dl (6.1-8.1) Albumin 3.7g/dl (3.3-4.9) Globulin 3.30g/dl (1.3-3.2) Albumin/Globulin Ratio 1.12 KATIE IRIZARRY MD Apr 18, 2017 14:35
== END 2017-04-18 11:13 | disposition home or self-care (01) | DRG 292 ==
LOC: MS4 06:14
PROVIDERS: ADMIT Internal Medicine; ATTEND Internal Medicine
DX: I11.0 Hypertensive heart disease with heart failure (principal); M86.9 Osteomyelitis, unspecified; E11.51 Type 2 diabetes mellitus with diabetic peripheral angiopathy without gangrene; E11.622 Type 2 diabetes mellitus with other skin ulcer; E11.69 Type 2 diabetes mellitus with other specified complication; L97.519 Non-pressure chronic ulcer of other part of right foot with unspecified severity; I50.33 Acute on chronic diastolic (congestive) heart failure; E78.5 Hyperlipidemia, unspecified; F17.200 Nicotine dependence, unspecified, uncomplicated; Z91.14 Patient's other noncompliance with medication regimen; Z59.0 Homelessness; Z91.81 History of falling
CPT/HCPCS: 71020; 73718; 80048; 80053; 82962; 83036; 83735; 84100; 85025; 86140; J1940; J0360; J1170; J1644; J1815; J3475; J7050

== ENCOUNTER 2017-04-21 21:05 | Inpatient (IN) | payer BC ==
[~2017-04-21] VITALS: Ht 185.4 cm; Wt 121.0 kg
[~2017-04-21 21:05] MED LIST changes: +FURO40TA4 PO
[2017-04-22] VITALS (7 sets, daily range): BP systolic 136–198; BP diastolic 74–98; PULSE 59–80; RESP 18–20; Ht 185.4 cm; Wt 121.0 kg
[2017-04-22] MEDS ORDERED: hydrALAzine 20 MG INJ IV PRN (01:00)
[2017-04-22 01:22] LABS: BASOPHILS % 0.3 % (0.0-2.0); EOSINOPHILS # 0.1 10^3/ul (0.0-0.5); EOSINOPHILS % 0.8 % (0.0-7.0); HEMATOCRIT 31.9 % (42.0-52.0); HEMOGLOBIN 10.6 g/dl (14.0-18.0); LYMPHOCYTES % 11.7 % (15.0-51.0); MEAN CORPUSCULAR HEMOGLOBIN 30.9 pg (29.0-33.0); MEAN CORPUSCULAR HGB CONC 33.2 g/dl (32.0-37.0); MONOCYTE # 0.6 10^3/ul (0.3-0.9); MONOCYTES % 7.2 % (0.0-11.0); NEUTROPHILS % 79.4 % (39.0-77.0); PLATELET COUNT 250 10^3/UL (140-415); RED BLOOD COUNT 3.43 10^6/ul (4.70-6.10); RED CELL DISTRIBUTION WIDTH 14.5 % (11.5-14.5); WHITE BLOOD COUNT 8.9 10^3/ul (4.8-10.8)
[2017-04-22] MEDS ORDERED: ACETAMINOPHEN 325 MG TAB PO PRN (01:30)
[2017-04-22] MEDS ORDERED: NACL 0.9% 3 ML SYG IV SCH (01:30)
[2017-04-22] MEDS ORDERED: ONDANSETRON 4 MG INJ IV PRN (01:30)
[2017-04-22] MEDS ORDERED: HYDR4TAB PO (01:46)
[2017-04-22] MEDS ORDERED: CLON2TAB3 PO (01:46)
[2017-04-22] MEDS ORDERED: CARI350T29 PO (01:46)
[2017-04-22] MEDS ORDERED: DIPH25TA PO (01:46)
[2017-04-22] MEDS ORDERED: ARIP5TAB20 PO (01:46)
[2017-04-22] MEDS ORDERED: TAMS0.4C2 PO (01:46)
[2017-04-22] MEDS ORDERED: SPIR100T31 PO (01:46)
[2017-04-22] MEDS ORDERED: CYCL-319 PO (01:46)
[2017-04-22] MEDS ORDERED: CEPH500C PO (01:46)
[2017-04-22 01:54] LABS: CALCIUM 9.1 mg/dl (8.4-10.2); CREATININE 1.28 mg/dl (0.61-1.24); POTASSIUM 4.9 mmol/L (3.5-5.1)
[2017-04-22] MEDS ORDERED: MAGNESIUM SULFATE 2 GM/50 ML 50 ML IVPB ONE (07:30)
[2017-04-22] MEDS ORDERED: METHADONE 10 MG TAB PO ONE (08:30)
[2017-04-22] MEDS: FAMOTIDINE 20 MG TAB PO SCH ×2 (08:39→20:46)
[2017-04-22] MEDS: ASPIRIN (EC) 81 MG TAB PO SCH (08:39)
[2017-04-22] MEDS ORDERED: FUROSEMIDE 40 MG TAB PO SCH (09:00)
[2017-04-22] MEDS ORDERED: DOXYCYCLINE 100 MG TAB PO SCH (09:00)
[2017-04-22] MEDS: FINASTERIDE 5 MG TAB PO SCH (09:36)
[2017-04-22] MEDS: clonAZEPAM 0.5 MG TAB PO SCH ×2 (09:37→20:47)
[2017-04-22] MEDS: LISINOPRIL 10 MG TAB PO SCH (09:38)
[2017-04-22] MEDS: ARIPIPRAZOLE 5 MG TAB PO SCH (09:38)
[2017-04-22] MEDS: GABAPENTIN 400 MG CAP PO SCH ×3 (09:44→21:53)
[2017-04-22] MEDS ORDERED: FUROSEMIDE 40 MG INJ IV SCH (11:00)
[2017-04-22] MEDS ORDERED: MAGNESIUM CHLORIDE (SR) 64 MG TAB PO ONE (11:00)
[2017-04-22] MEDS: SPIRONOLACTONE 50 MG TAB PO SCH (12:08)
[2017-04-22 12:46] LABS: ALBUMIN 3.6 g/dl (3.3-4.9); ALBUMIN/GLOBULIN RATIO 1.09; BILIRUBIN,INDIRECT 0.3 mg/dl (0-1.1); BILIRUBIN,TOTAL 0.3 mg/dl (0.2-1.3); CALCIUM 9.4 mg/dl (8.4-10.2); CREATININE 1.11 mg/dl (0.61-1.24); POTASSIUM 4.7 mmol/L (3.5-5.1); TOTAL PROTEIN 6.9 g/dl (6.1-8.1)
[2017-04-22] MEDS: METHADONE 10 MG TAB PO SCH ×2 (14:08→21:53)
--- NOTE | 2017-04-22 16:08 | HP ---
Date/Time of Note Date/Time of Note DATE: 04/22/17 TIME: 16:01 Assessment/Plan VTE Prophylaxis VTE Prophylaxis Intervention: LMWH Lines/Catheters IV [facility]ter Type (from [facility]): Peripheral IV Urinary Cath still in place: No Assessment/Plan Chief Complaint/Hosp Course 56 yo male with h/o diastolic CHF, opiate use disorder, PAD with previuos osteomyelitis who was transferred from OSH where he was admitted after opiate overdose leading to FLO and rhabdomyolysis, both improved. Now with opaite withdrawal and acute on chronic diasotlic CHF exacerbation Acute on chronic diastolic CHF exarbation: - Lasix 40 IV BID for now Opiate use d/o: - NO MORE PRN OPIATES - Treat withdrawal with methadone - Needs to be set up with outpatient methadone clinic prior to discharge PAD: - aspirin and statin FLO: - Resolving nicely, trend creatinine Transaminitis: - Trend LFTs - Somewhat from muscle source, per [facility] data likely shock liver element as well - No RUQ symptoms Rhabdomyolysis: - Trend CK levels Discharge in coming days if stable Problems: HPI/ROS Admit Date/Time Admit Date/Time Apr 22, 2017 at 00:21 Hx of Present Illness 56 yo male with chrnoic diastolic CHF, PAD, and opiate use d/o who is transferred from OSH Pateint known to me from prior adimssion for decompensated CHF. Discharged last week. Then went to pain management who prescribed dilaudid. Appraently took who bottle. Brought to [place] in renal failure, mild rhabdo. Renal faiulre improved. Thought to have a pneumonia, given abx. Then transferred here Here complains of feeling withdrawal from opiates as well as some mild shortness of breath Want to "kick" opaites and start methadone PMH/Family/Social Social History Smoking Status: Light tobacco smoker Exam/Review of Systems Vital Signs Vitals Vital Signs Date Time Temp Pulse Resp B/P Pulse Ox O2 Delivery O2 Flow Rate FiO2 04/22/17 08:56 60 18 198/98 04/22/17 08:08 98.8 97 04/22/17 00:58 Room Air Intake and Output 04/21/17 04/21/17 04/22/17 15:00 23:00 07:00 Intake Total 120 ml Balance 120 ml Exam Exam Well appearing in NAD, Aox3 CV: +++ JVD to the ear, RRR Lungs clear nonlabored Abdomen soft nt nd Ext withotu edema Labs Result Diagram: 04/22/17 0112 04/22/17 1212 Medications Medications Current Medications Hydralazine HCl (Apresoline) 10 mg Q6H PRN IV ELEVATED BLOOD PRESSURE Last administered on 04/22/17 08:39; Admin Dose 10 MG; Start 04/22/17 at 01:00 Ondansetron HCl (Zofran Inj) 4 mg Q6H PRN IV NAUSEA AND/OR VOMITING; Start 05/29 at 01:30 Acetaminophen (Tylenol Tab) 650 mg Q6H PRN PO PAIN LEVEL 1-3 OR FEVER; Start at 01:30 Famotidine (Pepcid) 20 mg Q12 PO Last administered on 04/22/17 08:39; Admin Dose 20 MG; Start 04/22/17 at 09:00 Amitriptyline HCl (Elavil) 100 mg QHS PO ; Start 04/22/17 at 21:00 Aspirin (Halfprin) 81 mg DAILY PO Last administered on 04/22/17 08:39; Admin Dose 81 MG; Start 04/22/17 at 09:00 Aripiprazole (Abilify) 5 mg DAILY PO Last administered on 04/22/17 09:38; Admin Dose 5 MG; Start 04/22/17 at 09:00 Clonazepam (Klonopin) 1 mg BID PO Last administered on 04/22/17 09:37; Admin Dose 1 MG; Start 04/22/17 at 09:00 Clonidine (Catapres) 0.1 mg BID PO Last administered on 04/22/17 09:37; Admin Dose 0.1 MG; Start 04/22/17 at 09:00 Finasteride (Proscar) 5 mg DAILY PO Last administered on 04/22/17 09:36; Admin Dose 5 MG; Start 04/22/17 at 09:00 Gabapentin (Neurontin) 800 mg Q8 PO Last administered on 04/22/17 14:08; Admin Dose 800 MG; Start 04/22/17 at 08:30 Lisinopril (Zestril) 10 mg DAILY PO Last administered on 04/22/17 09:38; Admin Dose 10 MG; Start 04/22/17 at 09:00 Spironolactone (Aldactone) 50 mg DAILY PO Last administered on 04/22/17 12:08 ; Admin Dose 50 MG; Start 04/22/17 at 09:00 Tamsulosin HCl (Flomax) 0.4 mg HS PO ; Start 04/22/17 at 21:00 Furosemide (Lasix) 40 mg DAILY IV Last administered on 04/22/17 12:08; Admin Dose 40 MG; Start 04/22/17 at 11:00 Carvedilol (Coreg) 6.25 mg BID PO ; Start 04/22/17 at 21:00 Methadone HCl (Methadone) 10 mg Q8 PO Last administered on 04/22/17 14:08; Admin Dose 10 MG; Start 04/22/17 at 14:00 KATIE IRIZARRY MD Apr 22, 2017 16:08
[2017-04-22] MEDS: FUROSEMIDE 40 MG INJ IV SCH (17:23)
--- NOTE | 2017-04-22 20:33 | RADRPT ---
PROCEDURE: XR Chest. CLINICAL INDICATION: Dyspnea, CHF. TECHNIQUE: PA and lateral chest x-ray. COMPARISON: 04/16/2017 FINDINGS: 1 cm nodular density in the left lung base is likely a nipple shadow. There is elevation right hemidiaphragm with volume loss in the right lower lung zone subsegmental at electasis. The lungs are otherwise clear. There is no evidence of pleural effusion. No pneumothorax identified. The cardiomediastinal silhouette is unremarkable. The osseous structures are unremarkable. The soft tissues are within normal limits. IMPRESSION: 1. Mild volume loss in the right lung base with elevation right hemidiaphragm and subsegmental atel ectasis. 2. No evidence of pneumonia or CHF.. RPTAT: HLDM .Everette Muro MD, Date Time Electronically viewed and signed by .Everette Muro MD, on 04/22/2017 20:33 .M/
[2017-04-22] MEDS: TAMSULOSIN (SR) 0.4 MG CAP PO SCH (20:46)
[2017-04-22] MEDS: AMITRIPTYLINE 50 MG TAB PO SCH (21:54)
[2017-04-23 02:00] VITALS: BP 102/62; RESP 16
[2017-04-23 05:00] VITALS: BP 106/60; PULSE 67; RESP 18
[2017-04-23 05:47] LABS: BASOPHIL # 0.1 10^3/ul (0.0-0.1); BASOPHILS % 0.7 % (0.0-2.0); EOSINOPHILS # 0.2 10^3/ul (0.0-0.5); EOSINOPHILS % 2.6 % (0.0-7.0); HEMOGLOBIN 11.7 g/dl (14.0-18.0); LYMPHOCYTES # 1.6 10^3/ul (0.8-2.9); LYMPHOCYTES % 23.5 % (15.0-51.0); MEAN CORPUSCULAR HEMOGLOBIN 30.2 pg (29.0-33.0); MEAN CORPUSCULAR HGB CONC 32.5 g/dl (32.0-37.0); MEAN PLATELET VOLUME 9.6 fl (7.4-10.4); MONOCYTE # 0.6 10^3/ul (0.3-0.9); MONOCYTES % 8.7 % (0.0-11.0); NEUTROPHILS % 63.6 % (39.0-77.0); PLATELET COUNT 310 10^3/UL (140-415); RED BLOOD COUNT 3.87 10^6/ul (4.70-6.10); RED CELL DISTRIBUTION WIDTH 14.4 % (11.5-14.5); WHITE BLOOD COUNT 6.9 10^3/ul (4.8-10.8)
[2017-04-23 06:11] LABS: ALBUMIN 3.8 g/dl (3.3-4.9); ALBUMIN/GLOBULIN RATIO 1.11; BILIRUBIN,INDIRECT 0.1 mg/dl (0-1.1); BILIRUBIN,TOTAL 0.1 mg/dl (0.2-1.3); CALCIUM 9.4 mg/dl (8.4-10.2); CREATININE 1.39 mg/dl (0.61-1.24); POTASSIUM 4.2 mmol/L (3.5-5.1); TOTAL PROTEIN 7.2 g/dl (6.1-8.1)
[2017-04-23] MEDS: GABAPENTIN 400 MG CAP PO SCH ×3 (06:21→21:17)
[2017-04-23] MEDS: FUROSEMIDE 40 MG INJ IV SCH ×2 (06:22→17:15)
[2017-04-23] MEDS: METHADONE 10 MG TAB PO SCH ×3 (06:22→21:54)
[2017-04-23 06:29] VITALS: BP 114/76; PULSE 70; RESP 17
[2017-04-23 07:30] VITALS: BP 126/75; RESP 18
[2017-04-23] MEDS: ARIPIPRAZOLE 5 MG TAB PO SCH (08:51)
[2017-04-23] MEDS: LISINOPRIL 10 MG TAB PO SCH (08:52)
[2017-04-23] MEDS: FINASTERIDE 5 MG TAB PO SCH (08:53)
[2017-04-23] MEDS: FAMOTIDINE 20 MG TAB PO SCH ×2 (08:53→21:17)
[2017-04-23] MEDS: ASPIRIN (EC) 81 MG TAB PO SCH (08:53)
[2017-04-23] MEDS: SPIRONOLACTONE 50 MG TAB PO SCH (08:54)
[2017-04-23] MEDS: clonAZEPAM 0.5 MG TAB PO SCH ×2 (08:54→21:16)
[2017-04-23 14:30] VITALS: BP 135/62; RESP 18
--- NOTE | 2017-04-23 17:01 | PN ---
Date/Time of Note Date/Time of Note DATE: 04/23/17 TIME: 16:52 Assessment/Plan VTE Prophylaxis VTE Prophylaxis Intervention: ambulation Lines/Catheters IV [facility]from [facility]): Saline Lock Urinary Cath still in place: No Assessment/Plan Chief Complaint/Hosp Course 56 yo male with h/o diastolic CHF, opiate use disorder, PAD with previous osteomyelitis who was transferred from OSH where he was admitted after opiate overdose leading to FLO and rhabdomyolysis, both improved. Now with opiate withdrawal and acute on chronic DHF exacerbation Acute on chronic diastolic CHF exacerbation-Improved - Lasix 40 IV BID for now Opiate use d/o: - NO MORE PRN OPIATES - Treat withdrawal with methadone - Needs to be set up with outpatient methadone clinic prior to discharge, SW to assist PAD: - aspirin and statin FLO: - Resolving nicely, trend creatinine Transaminitis: - Trend LFTs - Somewhat from muscle source, per outside hospital data likely shock liver element as well - No RUQ symptoms Rhabdomyolysis: - Trend CK levels PPx-Ambulation Discharge in coming days if stable Problems: Subjective 24 Hr Interval Summary Constitutional: no complaints Exam/Review of Systems Vital Signs Vitals Vital Signs Date Time Temp Pulse Resp B/P Pulse Ox O2 Delivery O2 Flow Rate FiO2 04/23/17 07:30 97.9 76 18 126/75 97 04/23/17 06:29 Room Air Intake and Output 04/22/17 04/22/17 04/23/17 15:00 23:00 07:00 Intake Total 50 ml 2580 ml 1040 ml Output Total 600 ml Balance 50 ml 2580 ml 440 ml Exam Constitutional: alert Respiratory: clear to auscultation Cardiovascular: regular rate and rhythm Gastrointestinal: soft, No distended Musculoskeletal: nl extremities to inspection Results Result Diagram: 04/23/17 0443 04/23/17442 Results 24 hrs Laboratory Tests Test 04/23/17 04:43 White Blood Count 6.9 # Red Blood Count 3.87 L Hemoglobin 11.7 L Hematocrit 36.0 L Mean Corpuscular Volume 93.0 Mean Corpuscular Hemoglobin 30.2 Mean Corpuscular Hemoglobin Concent 32.5 Red Cell Distribution Width 14.4 Platelet Count 310 # Mean Platelet Volume 9.6 Neutrophils % 63.6 Lymphocytes % 23.5 Monocytes % 8.7 Eosinophils % 2.6 Basophils % 0.7 Nucleated Red Blood Cells % 0.0 Neutrophils # (Manual) 4.4 Lymphocytes # 1.6 Monocytes # 0.6 Eosinophils # 0.2 Basophils # 0.1 Nucleated Red Blood Cells # 0.0 Sodium Level 137 Potassium Level 4.2 Chloride Level 99 Carbon Dioxide Level 27 Anion Gap 15 Blood Urea Nitrogen 26 H Creatinine 1.39 H Glucose Level 93 Calcium Level 9.4 Total Bilirubin 0.1 L Direct Bilirubin 0.00 Indirect Bilirubin 0.1 Aspartate Amino Transf (AST/SGOT) 156 #H Alanine Aminotransferase (ALT/SGPT) 389 H Alkaline Phosphatase 67 Creatine Kinase 494 H Total Protein 7.2 Albumin 3.8 Globulin 3.40 H Albumin/Globulin Ratio 1.11 Medications Medications Current Medications Hydralazine HCl (Apresoline) 10 mg Q6H PRN IV ELEVATED BLOOD PRESSURE Last administered on 04/22/17 08:39; Admin Dose 10 MG; Start 04/22/17 at 01:00 Ondansetron HCl (Zofran Inj) 4 mg Q6H PRN IV NAUSEA AND/OR VOMITING; Start 05/29 at 01:30 Acetaminophen (Tylenol Tab) 650 mg Q6H PRN PO PAIN LEVEL 1-3 OR FEVER; Start at 01:30 Famotidine (Pepcid) 20 mg Q12 PO Last administered on 04/23/17 08:53; Admin Dose 20 MG; Start 04/22/17 at 09:00 Amitriptyline HCl (Elavil) 100 mg QHS PO Last administered on 04/22/17 21:54; Admin Dose 100 MG; Start 04/22/17 at 21:00 Aspirin (Halfprin) 81 mg DAILY PO Last administered on 04/23/17 08:53; Admin Dose 81 MG; Start 04/22/17 at 09:00 Aripiprazole (Abilify) 5 mg DAILY PO Last administered on 04/23/17 08:51; Admin Dose 5 MG; Start 04/22/17 at 09:00 Clonazepam (Klonopin) 1 mg BID PO Last administered on 04/23/17 08:54; Admin Dose 1 MG; Start 04/22/17 at 09:00 Clonidine (Catapres) 0.1 mg BID PO Last administered on 04/23/17 08:53; Admin Dose 0.1 MG; Start 04/22/17 at 09:00 Finasteride (Proscar) 5 mg DAILY PO Last administered on 04/23/17 08:53; Admin Dose 5 MG; Start 04/22/17 at 09:00 Gabapentin (Neurontin) 800 mg Q8 PO Last administered on 04/23/17 14:21; Admin Dose 800 MG; Start 04/22/17 at 08:30 Lisinopril (Zestril) 10 mg DAILY PO Last administered on 04/23/17 08:52; Admin Dose 10 MG; Start 04/22/17 at 09:00 Spironolactone (Aldactone) 50 mg DAILY PO Last administered on 04/23/17 08:54 ; Admin Dose 50 MG; Start 04/22/17 at 09:00 Tamsulosin HCl (Flomax) 0.4 mg HS PO Last administered on 04/22/17 20:46; Admin Dose 0.4 MG; Start 04/22/17 at 21:00 Carvedilol (Coreg) 6.25 mg BID PO Last administered on 04/23/17 08:53; Admin Dose 6.25 MG; Start 04/22/17 at 21:00 Methadone HCl (Methadone) 10 mg Q8 PO Last administered on 04/23/17 14:21; Admin Dose 10 MG; Start 04/22/17 at 14:00 TERESITA DENT Apr 23, 2017 17:01
[2017-04-23 20:23] VITALS: BP 121/70; RESP 20
[2017-04-23] MEDS: TAMSULOSIN (SR) 0.4 MG CAP PO SCH (21:16)
[2017-04-23] MEDS: AMITRIPTYLINE 50 MG TAB PO SCH (21:17)
[2017-04-23] MEDS ORDERED: GLUCOSE GEL 15 GRAM TUBE BUCCAL PRN (23:00)
[2017-04-23] MEDS ORDERED: GLUCOSE GEL 15 GRAM TUBE PO PRN ×2 (23:00)
[2017-04-23] MEDS ORDERED: GLUCAGON 1 MG INJ IM PRN (23:00)
[2017-04-23] MEDS ORDERED: DEXTROSE 50% 50 ML SYRINGE IV PRN ×2 (23:00)
[2017-04-24] MEDS: ACCU-CHEK XX SCH (02:00)
[2017-04-24 02:44] VITALS: BP 110/68; RESP 20
[2017-04-24] MEDS: FUROSEMIDE 40 MG INJ IV SCH (05:48)
[2017-04-24 05:49] LABS: BASOPHIL # 0.1 10^3/ul (0.0-0.1); BASOPHILS % 0.7 % (0.0-2.0); EOSINOPHILS # 0.2 10^3/ul (0.0-0.5); HEMATOCRIT 42.9 % (42.0-52.0); HEMOGLOBIN 13.6 g/dl (14.0-18.0); LYMPHOCYTES # 2.3 10^3/ul (0.8-2.9); LYMPHOCYTES % 24.5 % (15.0-51.0); MEAN CORPUSCULAR HEMOGLOBIN 29.5 pg (29.0-33.0); MEAN CORPUSCULAR HGB CONC 31.7 g/dl (32.0-37.0); MEAN CORPUSCULAR VOLUME 93.1 fl (82.0-101.0); MEAN PLATELET VOLUME 9.2 fl (7.4-10.4); MONOCYTE # 0.6 10^3/ul (0.3-0.9); MONOCYTES % 6.7 % (0.0-11.0); PLATELET COUNT 376 10^3/UL (140-415); RED BLOOD COUNT 4.61 10^6/ul (4.70-6.10); RED CELL DISTRIBUTION WIDTH 14.5 % (11.5-14.5); WHITE BLOOD COUNT 9.4 10^3/ul (4.8-10.8)
[2017-04-24] MEDS: METHADONE 10 MG TAB PO SCH ×3 (05:49→21:50)
[2017-04-24] MEDS: GABAPENTIN 400 MG CAP PO SCH ×3 (05:49→21:50)
[2017-04-24 06:01] LABS: CALCIUM 9.7 mg/dl (8.4-10.2); CREATININE 1.52 mg/dl (0.61-1.24); MAGNESIUM 1.4 mg/dl (1.7-2.5)
[2017-04-24 07:20] VITALS: BP 101/66; RESP 19
[2017-04-24] MEDS ORDERED: INSULIN ASPART [NOVOLOG] 3 ML PEN SC SCH (07:50)
[2017-04-24] MEDS ORDERED: INSULIN GLARGINE [LANtus] 3 ML PEN SC SCH (08:00)
[2017-04-24] MEDS: ARIPIPRAZOLE 5 MG TAB PO SCH (08:57)
[2017-04-24] MEDS: SPIRONOLACTONE 50 MG TAB PO SCH (08:57)
[2017-04-24] MEDS: clonAZEPAM 0.5 MG TAB PO SCH ×2 (08:58→20:44)
[2017-04-24] MEDS: ASPIRIN (EC) 81 MG TAB PO SCH (08:58)
[2017-04-24] MEDS: FINASTERIDE 5 MG TAB PO SCH (08:58)
[2017-04-24] MEDS: LISINOPRIL 10 MG TAB PO SCH (08:58)
[2017-04-24] MEDS: FAMOTIDINE 20 MG TAB PO SCH ×2 (08:58→20:48)
[2017-04-24] MEDS ORDERED: MAGNESIUM SULFATE 4 GM/100 ML 100 ML IVPB SCH (11:30)
[2017-04-24] MEDS: SOD CHLORIDE 0.9% 1,000 ML IV SCH ×2 (11:41→20:38)
--- NOTE | 2017-04-24 14:43 | PN ---
Date/Time of Note Date/Time of Note DATE: 04/24/17 TIME: 14:42 Assessment/Plan VTE Prophylaxis VTE Prophylaxis Intervention: ambulation Lines/Catheters IV [facility] Type (from [facility] Saline Lock Urinary Cath still in place: No Assessment/Plan Chief Complaint/Hosp Course 56 yo male with h/o diastolic CHF, opiate use disorder, PAD with previous osteomyelitis who was transferred from OSH where he was admitted after opiate overdose leading to FLO and rhabdomyolysis, both improved. Now with opiate withdrawal and acute on chronic DHF exacerbation Acute on chronic diastolic CHF exacerbation-resolved -DC Lasix Opiate use d/o: - NO MORE PRN OPIATES - Treat withdrawal with methadone - Needs to be set up with outpatient methadone clinic prior to discharge, SW to assist PAD: - aspirin and statin FLO: -IV fluids Transaminitis: - Trend LFTs - Somewhat from muscle source, per outside hospital data likely shock liver element as well - No RUQ symptoms Rhabdomyolysis: - Trend CK levels PPx-Ambulation Likely DC in a.m. Problems: Subjective 24 Hr Interval Summary Constitutional: no complaints Exam/Review of Systems Vital Signs Vitals Vital Signs Date Time Temp Pulse Resp B/P Pulse Ox O2 Delivery O2 Flow Rate FiO2 04/24/17 07:20 98.3 79 19 101/66 94 04/23/17 06:29 Room Air Intake and Output 04/23/17 04/23/17 04/24/17 14:59 22:59 06:59 Intake Total 700 ml 480 ml Output Total 1400 ml 1500 ml Balance -700 ml -1020 ml Exam Constitutional: alert, oriented Respiratory: clear to auscultation Cardiovascular: regular rate and rhythm Gastrointestinal: soft, No distended Musculoskeletal: nl extremities to inspection Results Result Diagram: 04/24/17 0501 04/24/17 0501 Results 24 hrs Laboratory Tests Test 04/23/17 22:45 04/24/17 05:01 04/24/17 08:46 Bedside Glucose 129 147 White Blood Count 9.4 # Red Blood Count 4.61 L Hemoglobin 13.6 L Hematocrit 42.9 Mean Corpuscular Volume 93.1 Mean Corpuscular Hemoglobin 29.5 Mean Corpuscular Hemoglobin Concent 31.7 L Red Cell Distribution Width 14.5 Platelet Count 376 # Mean Platelet Volume 9.2 Neutrophils % 65.0 Lymphocytes % 24.5 Monocytes % 6.7 Eosinophils % 2.0 Basophils % 0.7 Nucleated Red Blood Cells % 0.0 Neutrophils # (Manual) 6.1 Lymphocytes # 2.3 Monocytes # 0.6 Eosinophils # 0.2 Basophils # 0.1 Nucleated Red Blood Cells # 0.0 Sodium Level 138 Potassium Level 5.0 Chloride Level 100 Carbon Dioxide Level 28 Anion Gap 15 Blood Urea Nitrogen 41 #H Creatinine 1.52 H Glucose Level 111 Hemoglobin A1c 5.6 Calcium Level 9.7 Magnesium Level 1.4 L Medications Medications Current Medications Hydralazine HCl (Apresoline) 10 mg Q6H PRN IV ELEVATED BLOOD PRESSURE Last administered on 04/22/17 08:39; Admin Dose 10 MG; Start 04/22/17 at 01:00 Ondansetron HCl (Zofran Inj) 4 mg Q6H PRN IV NAUSEA AND/OR VOMITING; Start 05/29 at 01:30 Acetaminophen (Tylenol Tab) 650 mg Q6H PRN PO PAIN LEVEL 1-3 OR FEVER; Start at 01:30 Famotidine (Pepcid) 20 mg Q12 PO Last administered on 04/24/17 08:58; Admin Dose 20 MG; Start 04/22/17 at 09:00 Amitriptyline HCl (Elavil) 100 mg QHS PO Last administered on 04/23/17 21:17; Admin Dose 100 MG; Start 04/22/17 at 21:00 Aspirin (Halfprin) 81 mg DAILY PO Last administered on 04/24/17 08:58; Admin Dose 81 MG; Start 04/22/17 at 09:00 Aripiprazole (Abilify) 5 mg DAILY PO Last administered on 04/24/17 08:57; Admin Dose 5 MG; Start 04/22/17 at 09:00 Clonazepam (Klonopin) 1 mg BID PO Last administered on 04/24/17 08:58; Admin Dose 1 MG; Start 04/22/17 at 09:00 Clonidine (Catapres) 0.1 mg BID PO Last administered on 04/24/17 08:58; Admin Dose 0.1 MG; Start 04/22/17 at 09:00 Finasteride (Proscar) 5 mg DAILY PO Last administered on 04/24/17 08:58; Admin Dose 5 MG; Start 04/22/17 at 09:00 Gabapentin (Neurontin) 800 mg Q8 PO Last administered on 04/24/17 13:42; Admin Dose 800 MG; Start 04/22/17 at 08:30 Lisinopril (Zestril) 10 mg DAILY PO Last administered on 04/24/17 08:58; Admin Dose 10 MG; Start 04/22/17 at 09:00 Spironolactone (Aldactone) 50 mg DAILY PO Last administered on 04/24/17 08:57 ; Admin Dose 50 MG; Start 04/22/17 at 09:00 Tamsulosin HCl (Flomax) 0.4 mg HS PO Last administered on 04/23/17 21:16; Admin Dose 0.4 MG; Start 04/22/17 at 21:00 Carvedilol (Coreg) 6.25 mg BID PO Last administered on 04/24/17 08:58; Admin Dose 6.25 MG; Start 04/22/17 at 21:00 Methadone HCl (Methadone) 10 mg Q8 PO Last administered on 04/24/17 13:42; Admin Dose 10 MG; Start 04/22/17 at 14:00 Diagnostic Test (Pha) 1 ea 1 ea 02 XX ; Start 04/24/17 at 02:00 Magnesium Sulfate 100 ml @ 25 mls/hr ONCE IVPB Last administered on 04/24/17 11:41; Admin Dose 25 MLS/HR; Start 04/24/17 at 11:30; Stop 04/24/17 at 15:29 Sodium Chloride (NS) 1,000 ml @ 100 mls/hr Q10H IV Last administered on 11:41; Admin Dose 100 MLS/HR; Start 04/24/17 at 11:00 TERESITA DENT Apr 24, 2017 14:43
[2017-04-24 20:34] VITALS: BP 108/62; RESP 20
[2017-04-24] MEDS: TAMSULOSIN (SR) 0.4 MG CAP PO SCH (20:44)
[2017-04-24] MEDS: AMITRIPTYLINE 50 MG TAB PO SCH (20:44)
[2017-04-24 21:22] VITALS: BP 119/81; RESP 20
[2017-04-25] MEDS: ACCU-CHEK XX SCH (01:15)
[2017-04-25] MEDS: SOD CHLORIDE 0.9% 1,000 ML IV SCH (01:57)
[2017-04-25 02:21] VITALS: BP 114/70; RESP 18
[2017-04-25] MEDS: GABAPENTIN 400 MG CAP PO SCH ×2 (05:51→14:17)
[2017-04-25] MEDS: METHADONE 10 MG TAB PO SCH ×2 (05:51→14:17)
[2017-04-25 08:00] VITALS: BP 134/70; RESP 19
[2017-04-25 08:12] LABS: BASOPHIL # 0.1 10^3/ul (0.0-0.1); BASOPHILS % 0.4 % (0.0-2.0); EOSINOPHILS # 0.2 10^3/ul (0.0-0.5); EOSINOPHILS % 1.4 % (0.0-7.0); HEMATOCRIT 41.9 % (42.0-52.0); HEMOGLOBIN 13.4 g/dl (14.0-18.0); LYMPHOCYTES % 17.7 % (15.0-51.0); MEAN CORPUSCULAR VOLUME 93.9 fl (82.0-101.0); MEAN PLATELET VOLUME 9.1 fl (7.4-10.4); MONOCYTE # 0.7 10^3/ul (0.3-0.9); MONOCYTES % 6.4 % (0.0-11.0); NEUTROPHILS % 73.2 % (39.0-77.0); PLATELET COUNT 390 10^3/UL (140-415); RED BLOOD COUNT 4.46 10^6/ul (4.70-6.10); WHITE BLOOD COUNT 11.4 10^3/ul (4.8-10.8)
[2017-04-25 08:33] LABS: MAGNESIUM 1.8 mg/dl (1.7-2.5); PHOSPHORUS 3.7 mg/dl (2.5-4.9)
[2017-04-25 08:34] LABS: ALBUMIN 3.6 g/dl (3.3-4.9); ALBUMIN/GLOBULIN RATIO 1.24; BILIRUBIN,INDIRECT 0.1 mg/dl (0-1.1); BILIRUBIN,TOTAL 0.1 mg/dl (0.2-1.3); CALCIUM 9.6 mg/dl (8.4-10.2); CREATININE 1.29 mg/dl (0.61-1.24); TOTAL PROTEIN 6.5 g/dl (6.1-8.1)
[2017-04-25 08:47] LABS: POTASSIUM 5.6 mmol/L (3.5-5.1)
[2017-04-25] MEDS: SPIRONOLACTONE 50 MG TAB PO SCH (09:52)
[2017-04-25] MEDS: ARIPIPRAZOLE 5 MG TAB PO SCH (09:52)
[2017-04-25] MEDS: FAMOTIDINE 20 MG TAB PO SCH (09:54)
[2017-04-25] MEDS: ASPIRIN (EC) 81 MG TAB PO SCH (09:54)
[2017-04-25] MEDS: FINASTERIDE 5 MG TAB PO SCH (09:54)
[2017-04-25] MEDS: LISINOPRIL 10 MG TAB PO SCH (09:55)
[2017-04-25] MEDS: clonAZEPAM 0.5 MG TAB PO SCH (09:58)
[2017-04-25] MEDS ORDERED: NA POLYST SULFON 15 GM/60 ML BTL PO ONE (12:00)
[2017-04-25 14:00] VITALS: BP 110/58; RESP 19
--- NOTE | 2017-04-25 16:08 | PDOCDIS ---
Discharge Instructions CONDITION Patient Condition: Good HOME CARE INSTRUCTIONS: Diet Instructions: Regular ACTIVITY: Activity Restrictions: No Restrictions FOLLOW UP/APPOINTMENTS Follow-up Plan F/U WITH YOUR PCP IN 1-2 WEEKS TERESITA DENT Apr 25, 2017 16:08
--- NOTE | 2017-04-25 17:31 | DS ---
Date/Time of Note Date/Time of Note DATE: 04/25/17 TIME: 17:25 Discharge Summary Admission/Discharge Info Admit Date/Time Apr 22, 2017 at 00:21 Discharge Date/Time April 25, 2017 Discharge Diagnosis Opiate use d/o: -Patient to follow-up with a methadone clinic, social media strategist and myself did discuss this with patient Acute on chronic diastolic CHF exacerbation-resolved PAD: - aspirin and statin FLO: Improved with fluids Transaminitis: Secondary to pain medications-trended down Mild rhabdomyolysis: Resolved Patient Condition: Good Hospital Course Patient is a 56 yo male with chronic diastolic CHF, PAD, and opiate use d/o who is transferred from OSH for opiate overdose. Patient presented with mild rhabdo and renal failure patient was given IV fluids and both improved. 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 On the day of discharge patient's vitals, labs and physical exam are stable, he had no further acute complaints and questions are answered. Home Meds Active Scripts Carvedilol* (Coreg*) 3.125 Mg Tablet, 3.125 MG PO DAILY for 60 Days, #30 TAB 2 Refills Prov:KATIE IRIZARRY MD 04/18/17 Furosemide* (Furosemide*) 40 Mg Tablet, 40 MG PO DAILY for 60 Days, #60 TAB Prov:KATIE IRIZARRY MD 04/18/17 Lisinopril* (Lisinopril*) 10 Mg Tablet, 10 MG PO DAILY, #30 TAB 2 Refills Prov:KATIE IRIZARRY MD 04/18/17 Clonidine Hcl* (Clonidine Hcl*) 0.1 Mg Tab, 0.1 MG PO BID for 30 Days, #60 TAB hold for SBP <110, HR <65 Prov:KATIE IRIZARRY MD 04/18/17 Aspirin* (Aspirin* EC) 81 Mg Tablet.dr, 81 MG PO DAILY, #30 TAB 1 Refill Prov:RAMON TROTTER. 02/17/17 Amitriptyline Hcl* (Amitriptyline Hcl*) 100 Mg Tablet, 100 MG PO QHS, #30 TAB 2 Refills Prov:RAMON TROTTER. 02/17/17 Finasteride* (Finasteride*) 5 Mg Tablet, 5 MG PO DAILY, #30 TAB 2 Refills Prov:RAMON TROTTER S. 02/17/17 Reported Medications Aripiprazole (Aripiprazole) 5 Mg Tablet, 5 MG PO DAILY, #30 TAB 04/22/17 Diphenhydramine Hcl (Diphendryl) 25 Mg Tablet, 50 MG PO, TAB 04/22/17 Clonazepam* (Clonazepam*) 2 Mg Tablet, 2 MG PO BID, TAB 04/22/17 Cyclobenzaprine Hcl* (Cyclobenzaprine Hcl*) 10 Mg Tablet, 10 MG PO TID, #90 TAB 04/22/17 Spironolactone* (Spironolactone*) 100 Mg Tablet, 50 MG PO DAILY, TAB 04/22/17 Tamsulosin Hcl* (Tamsulosin Hcl*) 0.4 Mg Cap.er.24h, 0.4 MG PO HS, CAP 04/22/17 Carisoprodol* (Carisoprodol*) 350 Mg Tablet, 350 MG PO TID, TAB 04/22/17 Cephalexin* (Cephalexin*) 500 Mg Capsule, 500 MG PO Q6, #28 CAP 04/22/17 Gabapentin* (Gabapentin*) 800 Mg Tablet, 800 MG PO Q8 03/20/17 Clonazepam* (Clonazepam*) 1 Mg Tablet, 1 MG PO BID, TAB 02/15/17 Metformin HCl (Metformin HCl ER) 500 Mg [id number], 500 MG PO BID, TAB 10/05/16 Discontinued Reported Medications Hydromorphone Hcl (Dilaudid) 4 Mg Tab, 4 MG PO Q6H Y for PAIN LEVEL 8-10, TAB 04/22/17 Discontinued Scripts Hydromorphone Hcl* (Dilaudid*) 2 Mg Tablet, 2 MG PO Q8H Y for SEVERE PAIN LEVEL 7-10, #40 TAB Prov:ANGELITO GOODWIN MD 01/09/17 Carvedilol* (Coreg*) 3.125 Mg Tablet, 3.125 MG PO DAILY, #60 TAB 2 Refills Prov:RAMON TROTTER S. 02/17/17 Follow-up Plan F/U WITH YOUR PCP IN 1-2 WEEKS Primary Care Provider Allison Cabrera Time spent on discharge: > 30 minutes TERESITA DENT Apr 25, 2017 17:31
== END 2017-04-25 17:25 | disposition home or self-care (01) | DRG 896 ==
LOC: MS1 04-22 00:21
PROVIDERS: ADMIT Family Medicine; ATTEND Family Medicine
DX: F11.23 Opioid dependence with withdrawal (principal); I50.33 Acute on chronic diastolic (congestive) heart failure; N17.9 Acute kidney failure, unspecified; M62.82 Rhabdomyolysis; R74.0 Nonspecific elevation of levels of transaminase and lactic acid dehydrogenase [LDH]; I73.9 Peripheral vascular disease, unspecified; Z72.0 Tobacco use
CPT/HCPCS: 71020; 80048; 80053; 82550; 82962; 83036; 83735; 84100; 85025; 87081; J0360; J1815; J1940; J3475; J7030

== ENCOUNTER 2017-11-05 21:18 | Inpatient (IN) | END 2017-11-09 16:58 | disposition home or self-care (01) | DRG 392 ==

== ENCOUNTER 2017-12-13 02:50 | Inpatient (IN) | END 2017-12-13 12:35 | disposition home or self-care (01) | DRG 917 ==